=== PATIENT | female | born 1970 | race Caucasian/White ===

== ENCOUNTER 2020-05-17 17:53 | Outpatient (REF) | payer BC, SELFPAY ==
--- NOTE | 2020-05-17 17:55 | MR_ITS ---
EXAMINATION: MR BREAST WITHOUT AND WITH CONTRAST, BILATERAL CLINICAL INFORMATION: 50-year-old for high-risk screening prior history of right breast LCIS. COMPARISON: MRI of 05/15/2019, 04/24/2018 and 05/10/2017. Correlation to mammogram of 11/17/2019. TECHNIQUE: Imaging was performed with a dedicated breast coil. Prior to the administration of contrast, bilateral axial T1 and bilateral axial T2 weighted sequences were obtained. After the uneventful administration of?7 mL of Gadavist, dynamic contrast-enhanced VIBRANT series through the breasts in the axial plane were performed. Subtracted images were performed and reviewed. A delayed sagittal sequence through both breasts was acquired. Additionally, CAD post-processing, including maximum intensity projections, 3-D reconstructions and kinetic analysis, were performed an independent workstation and reviewed by the interpreting radiologist is a portion of this exam. FINDINGS: The patient's fibroglandular tissue which is heterogeneously dense and demonstrates mild background enhancement. LEFT BREAST: Similar to prior studies there are scattered foci of enhancement demonstrating subthreshold kinetics. No suspicious masslike or non-masslike enhancement. No abnormal skin thickening or nipple retraction. No abnormal architectural distortion. Review of the T2 weighted images demonstrates no fibrocystic changes or dilated ducts. Review of kinetic images reveals no additional findings. RIGHT BREAST: Similar to the prior studies, there are scattered foci of enhancement demonstrating subthreshold kinetics. There is a susceptibility artifact in the 12 o'clock position of the breast. No suspicious masslike or non-masslike enhancement. No abnormal skin thickening or nipple retraction. No abnormal architectural distortion. Review of the T2 weighted images demonstrates no fibrocystic changes or dilated ducts. Review of kinetic images reveals no additional findings. There is no suspicious internal mammary chain or axillary adenopathy. Limited views of the chest and abdomen are unremarkable. MR/MR breast BI wo/w con IMPRESSION: No MR specific evidence of malignancy. ASSESSMENT: LEFT BREAST: BI-RADS 2 - Benign RIGHT BREAST: BI-RADS 2 - Benign RECOMMENDATIONS: Routine mammographic imaging as per most recent study and MRI as per high-risk protocol.
== END 2020-05-17 17:54 | disposition home or self-care (01) ==
LOC: HO.MRI 17:53
PROVIDERS: Visit Provider Surgery
DX: D05.00 Lobular carcinoma in situ of unspecified breast (principal)
CPT/HCPCS: 77049; A9585

== ENCOUNTER → 2020-05-18 14:41 | Outpatient (BNVA) | payer BC, SELFPAY | PROVIDERS: PCP Internal Medicine; Referring Provider Internal Medicine; Visit Provider Surgery | DX: Z76.89 Persons encountering health services in other specified circumstances (principal) ==

== ENCOUNTER 2020-09-24 12:58 | Outpatient (REF) | payer BC, SELFPAY ==
--- NOTE | ~2020-09-24 | XR_ITS ---
EXAMINATION: XR LUMBOSACRAL SPINE CLINICAL INFORMATION: Low back pain COMPARISON: None TECHNIQUE: Three views of the lumbosacral spine. FINDINGS: There may be a transitional vertebral body segment or 6 lumbar-type vertebral bodies. For the purposes of this dictation, levels are designated with the transitional vertebral body segment superiorly with the iliac crest and the L4-L5 disc space level. There may be mild 2 mm anterior subluxation of L5 with respect to S1. Bone alignment is otherwise normal. No fracture or dislocation is seen. There is degenerative disc disease at L5-S1. There is lower lumbar spine facet arthritis. XR/XR lumbar spine 2-3V IMPRESSION: Question transitional vertebral body segment. Mild degenerative disc disease at L5-S1 and lower lumbar spine facet arthritis.
== END 2020-09-24 12:59 | disposition home or self-care (01) ==
LOC: HO.HMGCX 12:58
PROVIDERS: PCP Nurse Practitioner Family
DX: M54.5 Low back pain (principal)
CPT/HCPCS: 72100

== ENCOUNTER 2020-10-04 17:10 | Outpatient (REF) | payer BC, SELFPAY ==
--- NOTE | ~2020-10-04 | XR_ITS ---
EXAMINATION: XR FOOT, RIGHT CLINICAL INFORMATION: Right foot pain COMPARISON: None TECHNIQUE: AP, lateral, and oblique views of the right foot. FINDINGS: The bones and soft tissues are unremarkable. No fracture. Alignment is anatomic. Joint spaces are maintained. XR/XR foot RT 2V IMPRESSION: No evidence of acute traumatic injury or cause for the patient's right foot pain.
== END 2020-10-04 17:11 | disposition home or self-care (01) ==
LOC: HO.XRAY 17:10
PROVIDERS: PCP Nurse Practitioner Family; Visit Provider Family Medicine
DX: M79.671 Pain in right foot (principal)
CPT/HCPCS: 73620

== ENCOUNTER → 2020-11-09 15:27 | Outpatient (BNVA) | payer BC, SELFPAY | PROVIDERS: PCP Nurse Practitioner Family; Visit Provider Surgery ==

== ENCOUNTER 2020-12-17 11:56 | Outpatient (REF) | payer BC, SELFPAY ==
--- NOTE | ~2020-12-17 | MM_ITS ---
EXAMINATION: MM SCREENING DIGITAL BREAST TOMOSYNTHESIS, BILATERAL CLINICAL INFORMATION: Screening. Asymptomatic. History right LCIS status post excision 2015. Benign right MR guided biopsy 03/2017. The lifetime risk of breast cancer based on the Tyrer-Cuzick Model is 53%. COMPARISON: Mammography: 11/17/2019, 11/15/2018, 11/30/2017 TECHNIQUE: Digital breast tomosynthesis is performed in both the craniocaudal and mediolateral oblique views along with computer-aided detection (CAD). Synthesized 2D images are generated from the tomosynthesis. FINDINGS: The breasts are heterogeneously dense, which may obscure small masses (ACR BI-RADS breast composition Category c). There are no significant masses, abnormal calcifications, or other abnormalities. Parenchymal pattern is similar to prior studies. No developing density. There is biopsy clip marker again seen 12:30 o'clock right breast. The axilla and skin contours are unremarkable. MM/MM tomosynthesis screening BI IMPRESSION: No mammographic evidence of malignancy. ASSESSMENT: BI-RADS 1: Negative RECOMMENDATION: 1. Routine annual mammography screening. 2. The lifetime risk of breast cancer based on the Tyrer-Cuzick Model is 53%. Additional annual adjunct screening with breast MRI may be of benefit in women with a risk score of 20% or greater. This patient's information was entered into a reminder system with a target due date for their next mammogram.
== END 2020-12-17 11:57 | disposition home or self-care (01) ==
LOC: HO.MAMMO 11:56
PROVIDERS: PCP Nurse Practitioner Family; Visit Provider Surgery
DX: Z12.31 Encounter for screening mammogram for malignant neoplasm of breast (principal)
CPT/HCPCS: 77063; 77067

== ENCOUNTER 2021-01-20 08:12 | Outpatient (REF) | payer BC, SELFPAY ==
--- NOTE | ~2021-01-20 | MM_ITS ---
EXAMINATION: BONE DENSITOMETRY CLINICAL INDICATION: Osteoporosis. COMPARISON: This is the patient's baseline examination. TECHNIQUE: Using a Element Robot DXA System (software version: 13.1) manufactured by [employer], dual-energy x-ray absorptiometry was performed of the lumbar spine and left hip. The images are of good technical quality. Summary results are attached. FINDINGS: AP SPINE L1-L4: BMD 1.174 g/cm2, Z-score 0.3, T-score -0.1, normal. LEFT FEMUR, NECK: BMD 0.837 g/cm2, Z-score -0.7, T-score -1.4, osteopenia. LEFT FEMUR, TOTAL: BMD 0.987 g/cm2, Z-score 0.2, T-score -0.2, normal. IDENTIFIED RISK FACTORS: Menopause, history of fracture (adult). HISTORY OF FRACTURE: Other. MEDICATIONS: Vitamin D, ERT/SERMS. MM/XR DEXA axial skeleton IMPRESSION: 1. DIAGNOSIS: Osteopenia based on the lowest T-score value of -1.4 in the femoral neck applying World Health Organization criteria. 2. 10-YEAR FRACTURE RISK PREDICTION, FRAX: Major osteoporotic fracture (clinical spine, forearm, hip or shoulder) 9.6%. Hip fracture 0.8%. 3. Treatment Recommendations: NOF guidelines recommend consideration for treatment in postmenopausal women and men age 50 and older presenting with the following: -A hip or vertebral (clinical or morphometric) fracture. -T-score less than or equal to -2.5 at the femoral neck or spine after appropriate evaluation to exclude secondary causes. -Low bone mass at the hip or spine and a 10-year fracture probability by FRAX of greater than or equal to 3% for hip fracture or greater than or equal to 20% for major osteoporotic fracture based on the [place] adapted WHO algorithm. 4. Other Recommendations: All treatment decisions require clinical judgment and consideration of individual patient factors, including patient preferences, comorbidities, previous drug use, risk factors not captured in the FRAX model (e.g. frailty, falls, vitamin D deficiency, increased bone turnover, interval significant decline in bone density) and possible under or overestimation of fracture risk by FRAX. Additional medical evaluation for secondary cause of low bone mineral density may be appropriate. FUTURE SCAN RECOMMENDATION: People with diagnosed cases of osteoporosis or at high risk for fracture should have regular bone mineral density tests. For patients eligible for Medicare, routine testing is allowed once every 2 years. The testing frequency can be increased to one year for patients who have rapidly progressing disease, those who are receiving or discontinuing medical therapy to restore bone mass, or have additional risk factors.
== END 2021-01-20 08:13 | disposition home or self-care (01) ==
LOC: HO.MAMMO 08:12
PROVIDERS: PCP Nurse Practitioner Family; Visit Provider Internal Medicine Medical Oncology
DX: Z13.820 Encounter for screening for osteoporosis (principal); D05.12 Intraductal carcinoma in situ of left breast; Z78.0 Asymptomatic menopausal state
CPT/HCPCS: 77080

== ENCOUNTER 2021-05-09 08:06 | Outpatient (REF) | payer BC, SELFPAY ==
--- NOTE | ~2021-05-09 | MR_ITS ---
EXAMINATION: MR BREAST WITHOUT AND WITH CONTRAST, BILATERAL CLINICAL INFORMATION: High-risk screening. Personal history of right breast LCIS post excision 2016. COMPARISON: Portions of previous study 05/17/2020 Mammography (nondiagnostic monitor review): 12/17/2020 TECHNIQUE: A 1.5 T system and a dedicated breast coil. T1-weighted sequences without fat-saturation were obtained prior to the administration of contrast. Fat-saturated T1- and T2-weighted sequences were also acquired. The patient received 7.5 mL of IV gadolinium-based contrast, Gadavist. Multiple sequential dynamic T1-weighted sequences were obtained through both breasts with fat-saturation. Subtracted images were reviewed. CAD postprocessing with 3-D reconstructions, maximum intensity projections and kinetic analysis was performed by the interpreting radiologist at an independent workstation and reviewed as a portion of this exam. FINDINGS: Amount of Remaining Fibroglandular Signal: There is heterogeneous fibroglandular tissue, which may obscure small masses (ACR BI-RADS breast composition category C).* Background Parenchymal Enhancement: Mild. Symmetry of Background Enhancement: Symmetric. RIGHT BREAST: There are no suspicious findings. Masses: There are no suspicious enhancing masses. Non-mass Enhancement: There is no suspicious non-mass enhancement. Focus: There are no suspicious enhancing foci. Non-enhancing Findings: Associated Findings: There is susceptibility artifact from tissue marker placement. The architecture is consistent with previous surgery. Kinetic Curve Assessment: Initial Phase: There are no suspicious areas of color signal. Delayed Phase: There are no areas of washout kinetics. LEFT BREAST: There are no suspicious findings. Masses: There are no suspicious enhancing masses. Non-mass Enhancement: There is no suspicious non-mass enhancement. Focus: There are no suspicious enhancing foci. Non-enhancing Findings: Associated Findings: There are no suspicious associated findings. Kinetic Curve Assessment: Initial Phase: There are no areas of suspicious color signal. Delayed Phase: There are no areas of washout kinetics. The axillary lymph nodes are morphologically normal. No suspicious internal mammary lymph nodes are seen. No suspicious abnormality in the visualized portions of chest or abdomen. MR/MR breast BI wo/w con IMPRESSION: No MR evidence of malignancy. No suspicious interval change. ASSESSMENT: Right Breast: ACR BI-RADS 2: Benign finding. Left Breast: ACR BI-RADS 1: Negative examination. RECOMMENDATIONS: Continue screening.
== END 2021-05-09 08:07 | disposition home or self-care (01) ==
LOC: HO.MRI 08:06
PROVIDERS: PCP Nurse Practitioner Family; Visit Provider Internal Medicine Medical Oncology
DX: D05.01 Lobular carcinoma in situ of right breast (principal); D05.12 Intraductal carcinoma in situ of left breast
CPT/HCPCS: 77049; A9585

== ENCOUNTER → 2021-07-05 10:28 | Outpatient (BNVA) | payer SELFPAY | PROVIDERS: PCP Nurse Practitioner Family; Referring Provider Nurse Practitioner Family; Visit Provider Surgery | DX: Z91.89 Other specified personal risk factors, not elsewhere classified (principal); Z86.000 Personal history of in-situ neoplasm of breast | CPT/HCPCS: 99212 ==

== ENCOUNTER 2021-07-21 14:37 | Emergency (ER) | payer BC, SELFPAY ==
--- NOTE | ~2021-07-21 | XR_ITS ---
EXAMINATION: XR CHEST CLINICAL INFORMATION: Chest pain COMPARISON: February 06, 2019 TECHNIQUE: AP portable view of the chest was obtained. FINDINGS: No significant abnormality is noted involving the heart, lungs, mediastinum, bony thorax or soft tissues. XR/XR chest 1V IMPRESSION: No acute disease.
--- NOTE | 2021-07-21 14:50 | ECG_ITS ---
Test Reason : CHEST PAIN Blood Pressure : / mmHG Vent. Rate : 069 BPM Atrial Rate : 069 BPM P-R Int : 128 ms QRS Dur : 092 ms QT Int : 396 ms P-R-T Axes : 073 049 054 degrees QTc Int : 424 ms Normal sinus rhythm Nonspecific ST abnormality Abnormal ECG No previous ECGs available Referred By: Generic ED Physician Electronically Signed By:NORMA MON
[2021-07-21 15:44] VITALS: BP 134/81; PULSE 67; RESP 16; TEMP 36.4; O2SAT 97; BMI 25.0
[2021-07-21 16:14] LABS: MANUAL DIFF FLAG NO
[2021-07-21 16:20] LABS: Basophils Absolute Auto 0.1 X10*3/uL (0.0-0.2); Basophils Percent Auto 1.2 % (0-2); Eosinophils Absolute Auto 0.1 X10*3/uL (0.0-0.4); Eosinophils Percent Auto 1.6 % (0-4); Hematocrit 41.4 % (37.0-47.0); Hemoglobin 13.9 g/dl (12.0-16.0); Imm Gran Abs Auto 0.01 X10*3/uL (0.00-0.03); Imm Gran Pct Auto 0.2 % (0.0-0.4); Lymphocytes Absolute Auto 1.7 X10*3/uL (1.2-4.9); Lymphocytes Percent Auto 34.3 % (20-40); Mean Corpuscular HGB Conc 33.6 g/dl (31.0-35.0); Mean Corpuscular Hemoglobin 31.3 pg (27.0-33.0); Mean Corpuscular Volume 93.2 fL (80.0-98.0); Monocytes Absolute Auto 0.5 X10*3/uL (0.1-1.2); Monocytes Percent Auto 10.1 % (2-11); Neutrophils Absolute Auto 2.7 x10*3/uL (2.0-8.3); Neutrophils Percent Auto 52.6 % (45-73); Platelet Count 241 X10*3/uL (160-400); Red Blood Count 4.44 X10*6/uL (4.20-5.50); Red Cell Distribution Width 12.9 % (11.0-16.0); White Blood Count 5.1 X10*3/uL (4.8-10.8)
[2021-07-21 16:35] LABS: Anion Gap 13 (12-20); Blood Urea Nitrogen 16 mg/dL (9-16); Calcium 10.5 mg/dL (8.4-10.2); Carbon Dioxide 31 mmol/L (22-29); Chloride 102 mmol/L (96-108); Creatinine Clr Calc Pharmacy 84.2; Estimated Glomerular Filt Rate > 60; Glucose Random 104 mg/dL (60-115); Potassium 5.5 mmol/L (3.3-5.1); Sodium 140 mmol/L (135-145)
[2021-07-21 16:43] LABS: Troponin-I High Sensitivity < 3.5 ng/L (<3.5-17.0)
== END 2021-07-21 21:40 | disposition left against medical advice (07) ==
PROVIDERS: Emergency Provider Emergency Medicine; PCP Nurse Practitioner Family
DX: R07.9 Chest pain, unspecified (principal)
CPT/HCPCS: 36415; 71045; 80048; 84484; 85025; 93005; 99283

== ENCOUNTER 2021-09-13 09:09 | Outpatient (REF) | payer OTHER, SELFPAY ==
[2021-09-13 11:24] LABS: MANUAL DIFF FLAG NO
[2021-09-13 11:42] LABS: Appearance Urine HAZY; Color Urine YELLOW; Glucose Urine UA NEG (NEG); Leukocyte Esterase Urine 2+ (NEG); Nitrite Urine NEG (NEG); PH 5.5 (5.0-8.0); Specific Gravity - Urine >= 1.030 (1.005-1.025); UACC Culture Trigger YES; Urine Blood NEG (NEG); Urine Ketones NEG (NEG); Urine Protein NEG (NEG-TRACE)
[2021-09-13 11:58] LABS: Basophils Absolute Auto 0.1 X10*3/uL (0.0-0.2); Basophils Percent Auto 1.2 % (0-2); Eosinophils Absolute Auto 0.1 X10*3/uL (0.0-0.4); Hematocrit 43.7 % (37.0-47.0); Hemoglobin 14.5 g/dl (12.0-16.0); Imm Gran Abs Auto 0.01 X10*3/uL (0.00-0.03); Imm Gran Pct Auto 0.2 % (0.0-0.4); Lymphocytes Absolute Auto 2.3 X10*3/uL (1.2-4.9); Lymphocytes Percent Auto 47.5 % (20-40); Mean Corpuscular HGB Conc 33.2 g/dl (31.0-35.0); Mean Corpuscular Hemoglobin 31.2 pg (27.0-33.0); Mean Platelet Volume 9.6 fL (9.4-12.3); Monocytes Absolute Auto 0.5 X10*3/uL (0.1-1.2); Monocytes Percent Auto 10.5 % (2-11); Neutrophils Absolute Auto 1.9 x10*3/uL (2.0-8.3); Neutrophils Percent Auto 38.6 % (45-73); Platelet Count 239 X10*3/uL (160-400); Red Blood Count 4.65 X10*6/uL (4.20-5.50); Red Cell Distribution Width 13.2 % (11.0-16.0); White Blood Count 4.9 X10*3/uL (4.8-10.8)
[2021-09-13 11:59] LABS: Alanine Aminotransferase 22 U/L (0-31); Albumin Level 4.8 g/dL (3.5-5.0); Alkaline Phosphatase 77 U/L (39-117); Anion Gap 14 (12-20); Aspartate Amino Transferase 22 U/L (5-31); Bilirubin Total 0.9 mg/dL (0.0-1.0); Blood Urea Nitrogen 16 mg/dL (9-16); Calcium 10.6 mg/dL (8.4-10.2); Carbon Dioxide 26 mmol/L (22-29); Chloride 103 mmol/L (96-108); Cholesterol 226 mg/dL; Estimated Glomerular Filt Rate > 60; Glucose Fasting 93 mg/dL (60-99); HDL Cholesterol 91 mg/dL; LDL Cholesterol Calculated 123 mg/dl; Potassium 4.9 mmol/L (3.3-5.1); Sodium 138 mmol/L (135-145); Total Protein 7.7 g/dL (6.5-8.0); Triglycerides 61 mg/dL
[2021-09-13 12:22] LABS: TSH reflex Free T4 1.87 uIU/mL (0.32-4.0)
[2021-09-13 12:39] LABS: Mucus Urine 1+ /LPF; Squamous Epithelial Cell Urine 2+ /LPF
[2021-09-13 12:40] LABS: RBC Urine 0 /HPF (0); Renal Epithelial Cells Urine 1+ /LPF
== END 2021-09-13 09:10 | disposition home or self-care (01) ==
LOC: HO.HMGCLDS 09:09
PROVIDERS: PCP Nurse Practitioner Family; Visit Provider Nurse Practitioner Family
DX: Z00.00 Encounter for general adult medical examination without abnormal findings (principal)
CPT/HCPCS: 36415; 80053; 80061; 81001; 81003; 84443; 85025; 87086; 87147

== ENCOUNTER 2021-09-16 13:26 | Outpatient (REF) | payer OTHER, SELFPAY ==
[2021-09-16 16:02] LABS: Appearance Urine CLEAR; Color Urine YELLOW; Glucose Urine UA NEG (NEG); Leukocyte Esterase Urine 1+ (NEG); Nitrite Urine NEG (NEG); PH 5.5 (5.0-8.0); Specific Gravity - Urine 1.015 (1.005-1.025); UACC Culture Trigger YES; Urine Blood NEG (NEG); Urine Ketones NEG (NEG); Urine Protein NEG (NEG-TRACE)
[2021-09-16 16:07] LABS: Bacteria Urine TRACE /LPF; RBC Urine 0 /HPF (0); Squamous Epithelial Cell Urine 2+ /LPF
[2021-09-16 17:10] LABS: Vitamin D 25-OH Total 46.4 ng/mL (>30)
[2021-09-19 15:57] LABS: Calcium (PTHI) 9.7 mg/dL (8.6-10.4); PTHI 36 pg/mL (16-77)
[2021-09-22 11:51] LABS: Calcium, Ionized 5.2 mg/dL (4.8-5.6)
== END 2021-09-16 13:27 | disposition home or self-care (01) ==
LOC: HO.HMGCLDS 13:26
PROVIDERS: PCP Nurse Practitioner Family; Visit Provider Nurse Practitioner Family
DX: E83.52 Hypercalcemia (principal)
CPT/HCPCS: 36415; 81001; 81003; 82306; 82330; 83970; 87086

== ENCOUNTER → 2021-11-01 08:04 | Outpatient (BNVA) | payer OTHER, SELFPAY | PROVIDERS: PCP Nurse Practitioner Family; Visit Provider Physician Assistant | DX: Z01.818 Encounter for other preprocedural examination (principal); Z12.11 Encounter for screening for malignant neoplasm of colon ==

== ENCOUNTER 2022-01-06 14:54 | Outpatient (REF) | payer OTHER, SELFPAY ==
--- NOTE | ~2022-01-06 | MM_ITS ---
EXAMINATION: MM SCREENING DIGITAL BREAST TOMOSYNTHESIS, BILATERAL CLINICAL INFORMATION: History right LCIS status post excision 2016. Screening. Asymptomatic. The lifetime risk of breast cancer based on the Tyrer-Cuzick Model is 52%. COMPARISON: Mammography: 11/17/2020, 11/17/2019, 11/15/2018; MR breasts 05/09/2021. TECHNIQUE: Digital breast tomosynthesis is performed in both the craniocaudal and mediolateral oblique views along with computer-aided detection (CAD). Synthesized 2D images are generated from the tomosynthesis. FINDINGS: There are scattered areas of fibroglandular density (ACR BI-RADS breast composition Category b). There are no significant masses, abnormal calcifications, or other abnormalities. There is biopsy clip marker central 12:30 o'clock right breast. No developing density or architectural abnormality. The axilla and skin contours are unremarkable. MM/MM tomosynthesis screening BI IMPRESSION: No mammographic evidence of malignancy. ASSESSMENT: BI-RADS 1: Negative RECOMMENDATION: 1. Routine annual mammography screening. 2. The lifetime risk of breast cancer based on the Tyrer-Cuzick Model is 52%. Additional annual adjunct screening with breast MRI may be of benefit in women with a risk score of 20% or greater. This patient's information was entered into a reminder system with a target due date for their next mammogram.
== END 2022-01-06 14:55 | disposition home or self-care (01) ==
LOC: HO.MAMMO 14:54
PROVIDERS: Visit Provider Surgery
DX: Z12.31 Encounter for screening mammogram for malignant neoplasm of breast (principal)
CPT/HCPCS: 77063; 77067

== ENCOUNTER 2022-05-30 16:25 | Outpatient (REF) | payer OTHER, SELFPAY ==
--- NOTE | ~2022-05-30 | MR_ITS ---
EXAMINATION: MR BREAST WITHOUT AND WITH CONTRAST, BILATERAL CLINICAL INFORMATION: High-risk screening. History of lobular neoplasia. COMPARISON: MRI 05/09/2021 and selected images from priors. Most recent mammography 01/06/2022. TECHNIQUE: Imaging was performed with a dedicated breast coil. Prior to the administration of contrast, bilateral axial T1 and bilateral axial T2 weighted sequences were obtained. After the uneventful administration of?7.5 mL of Gadavist, dynamic contrast-enhanced VIBRANT series through the breasts in the axial plane were performed. Subtracted images were performed and reviewed. A delayed sagittal sequence through both breasts was acquired. Additionally, CAD post-processing, including maximum intensity projections, 3-D reconstructions and kinetic analysis, were performed an independent workstation and reviewed by the interpreting radiologist is a portion of this exam. FINDINGS: The breasts are comprised of heterogeneous, dense fibroglandular parenchyma. The tissue undergoes mild background enhancement. LEFT BREAST: No suspicious mass or dominant nonmass enhancement. No architectural distortion. Scattered tiny foci of nonmass enhancement predominating in the lower outer quadrant are unchanged compared with priors RIGHT BREAST: No suspicious mass or dominant nonmass enhancement. Clip susceptibility artifact in the superior right breast from prior benign biopsy without associated enhancement. Subtle architectural distortion and susceptibility artifact in the medial right breast from remote excision for lobular neoplasia (LCIS) without associated enhancement. No appreciable change when compared with priors. Small scattered foci of nonmass enhancement predominating inferiorly are stable. There is no suspicious internal mammary chain or axillary adenopathy. Limited views of the chest and abdomen are unremarkable. MR/MR breast BI wo/w con IMPRESSION: No MR specific evidence of malignancy. Postsurgical changes on the right. ASSESSMENT: LEFT BREAST: BI-RADS 2, benign findings. RIGHT BREAST: BI-RADS 2, benign findings. RECOMMENDATIONS: Yearly bilateral breast MR per published guidelines in high-risk patients.
== END 2022-05-30 16:26 | disposition home or self-care (01) ==
LOC: HO.MRI 16:25
PROVIDERS: Visit Provider Surgery
DX: D05.00 Lobular carcinoma in situ of unspecified breast (principal); Z91.89 Other specified personal risk factors, not elsewhere classified
CPT/HCPCS: 77049

== ENCOUNTER → 2022-08-10 14:40 | Outpatient (BNVA) | payer OTHER, SELFPAY | PROVIDERS: PCP Nurse Practitioner Family; Referring Provider Nurse Practitioner Family; Visit Provider Surgery | DX: Z13.89 Encounter for screening for other disorder (principal) ==

== ENCOUNTER 2022-10-26 10:29 | Day surgery (SDC) | payer OTHER, SELFPAY ==
[2022-10-20 15:00] VITALS: BMI 25.7
--- NOTE | 2022-10-25 10:27 | P.CONAN_ITS ---
Documented by User: Alfreda Garcia NP 10/25/22 10:27 HPI - Anesthesia Eval Consult details Narrative: 52yo F for Colonoscopy PMFSH Active Problems Active Problems: All Active Problems (Updated 10/20/22 @ 14:56 by Chrissy Stovall RN) Lobular carcinoma in situ (LCIS) of breast (Acute) Foot pain, right (Acute) Lumbar back pain (Acute) Tendonitis (Acute) At high risk for breast cancer (Acute) Screening for colon cancer (Acute) Physical exam (Acute) Serum calcium elevated (Acute) Encounter for screening colonoscopy (Acute) Family History Family History Father Colon cancer Cancer of pancreas Mother Bladder cancer HTN (hypertension) High cholesterol H/O aortic valve replacement Maternal Grandmother Cancer of pancreas Paternal Grandmother No problems noted. Paternal Aunt Breast cancer Surgical History Surgical History (Updated 10/26/22 @ 11:12 by Marion Noriega RN) H/O colonoscopy History of appendectomy History of right breast biopsy History of tonsillectomy Social History Social History Housing: House Alcohol intake: never Patient Tobacco Use Status: Never used Tobacco e-Cigarette/Vaping Use: Never Used Second Hand Smoke Exposure: No Use of substances other than those prescribed or required for medical reasons: No Are you DNR?: No Advance Directives: No Advance Directives Information Provided: Yes Recently lost weight without trying: No Nutrition Risks: No Nutritional Risk service: No Current occupational status: employed 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 Cognitive needs: No Hearing needs: No Vision needs: No Meds Allergies Allergy/AdvReac Type Severity Reaction Status Date / Time epinephrine [EPINEPHRINE] Allergy Intermediate HEART Verified 02/07/22 15:52 RACES, palpitations, tachycardia Sulfa (Sulfonamide Allergy Intermediate RASH Verified 10/20/22 14:56 Antibiotics) [SULFA (SULFONAMIDE ANTIBIOTICS)] Home Medications Medication Instructions Recorded Confirmed Last Taken Type cholecalciferol (vitamin D3) 25 25 mcg PO DAILY 05/18/20 10/20/22 Unknown History mcg (1,000 unit) capsule Exam Exam Date and Time: October 25, 2022 1027 Height,Weight and Vital Signs: Height 5 ft 6 in Weight 72.121 kg Assessment and Plan Assessment Anesthesia Assessment: Chart Reviewed Documented by User: Taran Camarena MD 10/26/22 11:45 PMFSH Family History Family History Father Colon cancer Cancer of pancreas Mother Bladder cancer HTN (hypertension) High cholesterol H/O aortic valve replacement Maternal Grandmother Cancer of pancreas Paternal Grandmother No problems noted. Paternal Aunt Breast cancer Surgical History Surgical History (Updated 10/26/22 @ 11:12 by Marion Noriega RN) H/O colonoscopy History of appendectomy History of right breast biopsy History of tonsillectomy Social History Social History Housing: House Alcohol intake: never Patient Tobacco Use Status: Never used Tobacco e-Cigarette/Vaping Use: Never Used Second Hand Smoke Exposure: No Use of substances other than those prescribed or required for medical reasons: No Are you DNR?: No Advance Directives: No Advance Directives Information Provided: Yes Recently lost weight without trying: No Nutrition Risks: No Nutritional Risk service: No Current occupational status: employed 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: No Hearing needs: No Vision needs: No Meds Allergies Allergy/AdvReac Type Severity Reaction Status Date / Time epinephrine [EPINEPHRINE] Allergy Intermediate HEART Verified 02/07/22 15:52 RACES, palpitations, tachycardia Sulfa (Sulfonamide Allergy Intermediate RASH Verified 10/20/22 14:56 Antibiotics) [SULFA (SULFONAMIDE ANTIBIOTICS)] Home Medications Medication Instructions Recorded Confirmed Last Taken Type cholecalciferol (vitamin D3) 25 25 mcg PO DAILY 05/18/20 10/20/22 Unknown History mcg (1,000 unit) capsule Exam Airway Mallampati Class: II TM Dist: <=3cm Neck ROM: Full Heart: rrr Lungs: cta Assessment and Plan Assessment Anesthesia Assessment: Anesthesia Plan Discussed Anesthetic Plan Anesthetic Plan: MAC: and Agree w/ Assess. and Plan Disposition: Standard PACU
[2022-10-26 11:14] VITALS: BMI 24.0
[2022-10-26 11:19] VITALS: BP 118/66; PULSE 72; RESP 16; TEMP 36.9; O2SAT 99
[2022-10-26] MEDS: Lactated Ringers 1,000 ML 100 ML IVCONT (11:35)
--- NOTE | 2022-10-26 11:36 | MHC.SHP ---
Pre-Procedural Eval Section A Date of Service: 10/26/22 Section B Chief Complaint: Screening, fam hx of CRC Details of Present Illness: Surgical History History of appendectomy History of right breast biopsy History of tonsillectomy Relevant Family History (Specify if Yes): Yes Present Medications: see Short Stay Collaborative assessment Allergies: Allergies Allergy/AdvReac Type Severity Reaction Status Date / Time epinephrine [EPINEPHRINE] Allergy Intermediate HEART Verified 02/07/22 15:52 RACES, palpitations, tachycardia Sulfa (Sulfonamide Allergy Intermediate RASH Verified 10/20/22 14:56 Antibiotics) [SULFA (SULFONAMIDE ANTIBIOTICS)] Review of Systems Review of Systems Comment: Ten point ROS negative Exam Exam Comment: Gen appear: No acute distress HEENT: no icterus Chest: No overt resp distress Abd: soft, nontender, nondistended Psych: Stable affect, answering questions appropriately Neuro: A/Ox3 noted to move all extremities spontaneously Ext: no peripheral edema Plan Diagnosis/Plan: Unchanged I have reviewed the history and physical and performed a pertinent physical examination on my patient. No changes have occurred unless specified. Time Spent With Patient Time: Total time managing care of this patient today ____ minutes.
--- NOTE | 2022-10-26 11:43 | P.OP_ITS ---
Operative Note Operative Note Date of Service: 10/26/22 Narrative: Procedure: Colonoscopy Indication: Screening, Family history of colon cancer Endoscopist: Janelle Adams MD Anesthesia Provider: Dr Mason Byrd Anesthesia type: MAC Instrument: Olympus [id number] Consent: Indication, risks vs benefits, and alternatives were discussed with the patient who gave written informed consent to proceed. EKG, pulse, pulse oximetry and blood pressure were monitored throughout the procedure. Please see anesthesia flowsheet. Procedure: The patient was brought to the procedure room and placed in the left lateral decubitus position. IV medications were administered by the anesthesia provider in attendance. A digital rectal exam was performed which was normal. A distal attachment cap was affixed to the tip of the scope and the colonoscope was then inserted through the anus and advanced through the colon to the cecum at 75 cm,and terminal ileum. Mucosa was carefully examined under high definition white light as the instrument was slowly withdrawn in a retrograde panoramic fashion. Retroflexion was performed in rectum. The procedure was not difficult. There were no immediate obvious complications. The quality of the prep was BBPS: 3+3+2 = adequate Withdrawal time 9 minutes. Limitations: No limitations. Findings: Mucosa: Normal to cecum and terminal ileum. Protruding lesions: * 1 sessile polyp of size 2 mm in sigmoid colon. Cold forceps polypectomy was performed. The polyp was completely removed and retrieved. * Medium external hemorrhoids without stigmata of recent bleeding. Impression: 1. Normal colon and terminal ileum mucosa 2. Total of 1 polyp removed from sigmoid colon. 3. External hemorrhoids Recommendations: - Follow path results. - Repeat colonoscopy in 5 years due to family history of CRC.
[2022-10-26 12:19] VITALS: BP 106/63; PULSE 82; RESP 15; TEMP 36.1; O2SAT 98
[2022-10-26 12:39] VITALS: BP 112/64; PULSE 70; RESP 18; TEMP 36.1; O2SAT 97
== END 2022-10-26 13:00 | disposition home or self-care (01) ==
PROVIDERS: PCP Nurse Practitioner Family; Visit Provider Internal Medicine
PROC: 0DJD8ZZ Inspection of Lower Intestinal Tract, Via Natural or Artificial Opening Endoscopic (ICD-10-PCS; CPT 45378; principal; 2022-10-26 11:40)
DX: Z12.11 Encounter for screening for malignant neoplasm of colon (principal); Z80.0 Family history of malignant neoplasm of digestive organs; K63.5 Polyp of colon; K64.4 Residual hemorrhoidal skin tags; Z85.3 Personal history of malignant neoplasm of breast; Z79.899 Other long term (current) drug therapy; Z88.2 Allergy status to sulfonamides; Z88.8 Allergy status to other drugs, medicaments and biological substances
CPT/HCPCS: 45380; 88305

== ENCOUNTER → 2022-11-30 14:29 | Outpatient (BNVA) | payer OTHER, SELFPAY | PROVIDERS: PCP Nurse Practitioner Family; Visit Provider Physician Assistant ==

== ENCOUNTER 2023-02-01 15:52 | Outpatient (REF) | payer OTHER, SELFPAY ==
--- NOTE | ~2023-02-01 | MM_ITS ---
EXAMINATION: MM SCREENING DIGITAL BREAST TOMOSYNTHESIS, BILATERAL CLINICAL INFORMATION: Screening. Asymptomatic. History right LCIS status post excision 2015. Benign right MR guided biopsy 03/2017. COMPARISON: MR dated 05/30/2022. Mammography: 01/06/2022, 05/09/2021, 12/17/2020, 05/27/2020, and dating back to 2018. TECHNIQUE: Digital breast tomosynthesis is performed in both the craniocaudal and mediolateral oblique views along with computer-aided detection (CAD). Synthesized 2D images are generated from the tomosynthesis. FINDINGS: The breasts are heterogeneously dense, which may obscure small masses (ACR BI-RADS breast composition Category c). Biopsy clip present in the upper slightly medial right breast, posterior one third. There are no suspicious masses, suspicious grouped calcifications, or areas of architectural distortion. The parenchymal pattern is stable from prior exams. There are no skin changes. MM/MM tomosynthesis screening BI IMPRESSION: No mammographic evidence of malignancy. ASSESSMENT: BI-RADS BI-RADS 1 - Negative RECOMMENDATION: Routine annual mammography screening. 1 year F/U This examination should not preclude the clinical evaluation of a suspicious palpable abnormality. This patient's information was entered into a reminder system with a target due date for their next mammogram.
== END 2023-02-01 15:53 | disposition home or self-care (01) ==
LOC: HO.MAMMO 15:52
PROVIDERS: PCP Nurse Practitioner Family; Visit Provider Nurse Practitioner Family
DX: Z12.31 Encounter for screening mammogram for malignant neoplasm of breast (principal)
CPT/HCPCS: 77063; 77067

== ENCOUNTER → 2023-02-01 16:00 | Outpatient (BNV) | payer OTHER, SELFPAY | PROVIDERS: PCP Nurse Practitioner Family; Visit Provider Radiology Diagnostic Radiology | DX: Z12.31 Encounter for screening mammogram for malignant neoplasm of breast (principal) | CPT/HCPCS: 77063; 77067 ==

== ENCOUNTER 2023-02-08 15:45 | Outpatient (AMB) | payer OTHER, SELFPAY ==
[2023-02-08 15:46] VITALS: BP 123/65; BMI 23.8
--- NOTE | 2023-02-08 15:46 | MHC.OFFVIS ---
Intake Vital Signs 02/08/23 15:46 Height 5 ft 7 in Weight 152 lb 4 oz BMI 23.8 BP 123/65 Blood Pressure Location Lt brachial Position Sitting Intake Visit Reasons: Breast exam, 6 month follow up Intake Note: Patient is seen in office for 6 month follow up visit, breast exam. Patient c/o: denies any concerns at the time of visit Director Oncology Required: No Accompanied by: Self / Same As Patient Allergies epinephrine [EPINEPHRINE] Allergy (Intermediate, Verified 02/08/23 15:52) HEART RACES, palpitations, tachycardia Sulfa (Sulfonamide Antibiotics) [SULFA (SULFONAMIDE ANTIBIOTICS)] Allergy (Intermediate, Verified 02/08/23 15:52) RASH Medication List - Last Reconciled 02/09/23 by Marc Odell MD cholecalciferol (vitamin D3) 25 mcg PO DAILY doxycycline hyclate 100 mg PO DAILY HPI HPI Comments History of Present Illness Details 52-year-old female patient, former patient of Dr. Ceja returning today for high risk breast cancer examination. She has a strong family history of colon cancer in a genetic testing on 08/16/2011 which revealed no clinically significant mutations or variants of unknown significance. Updated testing on 11/13/2018 revealed no deleterious mutations and no mutations of unknown significance. She previously underwent a right breast excision of a papilloma on 11/19/2014. Final pathology revealed lobular carcinoma in-situ arising from a complex sclerosing lesion. She was placed on a high risk screening protocol including yearly mammogram and MRIs. She was evaluated by Dr. Palomo and placed on tamoxifen but was later discontinued due to hot flashes and memory loss. She restarted in July 2017, 3 times weekly and completed the meds on 12/27/2019. She underwent MR guided biopsy on 05/10/2017 for a masslike enhancement in the right breast which revealed fibroadenomatoid changes. Subsequent MRI on 05/09/2021 revealed post treatment changes of the right breast and a normal left breast BI-RADS 2 right/BI-RADS 1 left. Her most recent mammogram of 02/01/2023 revealed no mammographic evidence of malignancy (BI-RADS 1). Repeat mammography in 1 year was recommended. Breast MRI on 05/30/2022 revealed no MR specific evidence of malignancy (BI-RADS 2 bilaterally). Currently she feels well and denies any ongoing breast symptoms. [facility] Surgical History H/O colonoscopy History of tonsillectomy History of right breast biopsy History of appendectomy Family History Father Colon cancer Cancer of pancreas Mother Bladder cancer HTN (hypertension) High cholesterol H/O aortic valve replacement Maternal Grandmother Cancer of pancreas Paternal Grandmother No problems noted. 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 Cognitive needs: No Hearing needs: No Vision needs: No Review of Systems Const All systems reviewed & are unremarkable except as noted in HPI and below Denies nipple discharge Skin/Breast Denies breast swelling, Denies breast skin changes, Denies breast pain, Denies breast mass, Denies change in breast shape, Denies nipple discharge and Denies rash [place]/Lymph Denies lymphadenopathy Physical Exam Vital Signs: Last Vital Signs BP 123/65 02/08/23 15:46 BMI result Body Mass Index 23.8 Const General: cooperative, comfortable, no acute distress, alert and awake Nutritional Appearance: average body habitus Orientation/consciousness: patient oriented x3 Limitations: no limitations Neck Neck: Yes normal visual inspection and Yes no lymphadenopathy Chest Other: Left breast: No skin change, no nipple retraction, no nipple discharge, no palpable mass, no enlarged lymph nodes. Right breast: No skin change, no nipple retraction, no nipple discharge, no palpable mass, no enlarged lymph nodes . Well-healed transverse scar at the 9 o'clock position of the right breast. Mild fibrocystic changes bilaterally. Resp Effort & Inspection: normal respiratory effort Skin General skin exam: no rashes or lesions noted and dry skin Neuro General: patient oriented x3 Extrem General: Yes no clubbing, cyanosis or edema Assessment & Plan Assessment & Plan (1) Lobular carcinoma in situ (LCIS) of breast: Comment: Right Code(s): D05.00 - Lobular carcinoma in situ of unspecified breast Qualifiers: Laterality: right Qualified Code(s): D05.01 - Lobular carcinoma in situ of right breast (2) At high risk for breast cancer: Code(s): Z91.89 - Other specified personal risk factors, not elsewhere classified Plan 52-year-old female with history of lobular carcinoma in situ of the right breast status post lumpectomy performed on 11/19/2014. Patient is being followed on the high risk breast cancer screening protocol. Her latest mammogram of 01/31/2023 revealed no mammographic evidence of malignancy (BI-RADS 1). Her Tyrer-Cuzick remaining lifetime risk of breast cancer was calculated at 52%. Breast MRI of 05/30/2022 revealed no MR specific evidence of malignancy (BI-RADS 2 bilaterally). Examined today revealed no suspicious findings in either breast. She will continue with her annual mammogram and breast MRI and follow-up in 6 months for routine examination. She is welcome to call sooner for any new concerns. Coding Level of Care Code Est Pt Level 3 (76804) Diagnoses Lobular carcinoma in situ (LCIS) of right breast D05.01 Laterality: right At high risk for breast cancer Z91.89
== END 2023-02-08 16:12 | disposition home or self-care (01) ==
PROVIDERS: PCP Nurse Practitioner Family; Visit Provider Surgery
DX: D05.01 Lobular carcinoma in situ of right breast (principal); Z91.89 Other specified personal risk factors, not elsewhere classified
CPT/HCPCS: 99213

== ENCOUNTER → 2023-02-08 15:45 | Outpatient (BNVA) | payer OTHER, SELFPAY | PROVIDERS: PCP Nurse Practitioner Family; Visit Provider Surgery ==

== ENCOUNTER 2023-05-15 10:25 | Outpatient (AMB) | payer OTHER, SELFPAY ==
--- NOTE | 2023-05-15 10:30 | A.OFFPC_ITS ---
Vital Signs 05/15/23 10:32 Weight 152 lb BP 138/86 Blood Pressure Location Rt brachial Position Sitting Pulse 72 Pulse Source Pulse Oximeter Pulse Oximetry (%) 99 Oxygen Delivery Method Room Air Intake Visit Reasons: Followup cough Intake Note: Patient is here today to follow up on cough and states it has gotten better. Allergies epinephrine [EPINEPHRINE] Allergy (Intermediate, Verified 05/15/23 10:32) HEART RACES, palpitations, tachycardia Sulfa (Sulfonamide Antibiotics) [SULFA (SULFONAMIDE ANTIBIOTICS)] Allergy (Intermediate, Verified 05/15/23 10:32) RASH Tobacco use date assessed: 05/15/23 Dental Screening Dental Screen Date: 05/15/23 Did you have a dental visit in the last 12 months?: Yes Did you have a dental problem in the last 6 months where you did not have access to dental care?: No Was dental information given to patient?: Patient has dentist HPI Followup cough HPI Details Pt c/o cough. She reports having a cold recently and reports ongoing cough x4 weeks. Explained to pt that cough will last longer than her previous symptoms. Pt reports being bit by a tick around May 01. She states that the tick was not engorged, easily removed well before 24hrs. Pt reports noticing a swollen lymph node in her neck. Will order US. Denies fever, chills, and dizziness. [facility] Surgical History H/O colonoscopy History of tonsillectomy History of right breast biopsy History of appendectomy Family History Father Colon cancer Cancer of pancreas Mother Bladder cancer HTN (hypertension) High cholesterol H/O aortic valve replacement Maternal Grandmother Cancer of pancreas Paternal Grandmother No problems noted. 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 Faheem Crane, Callie Araujo, Jourdan Greene and colleagues, with an educational lizet from [employer]. Physical exam (Primary Care) Vital Signs: Last Vital Signs Pulse 72 05/15/23 10:32 BP 138/86 05/15/23 10:32 Pulse Ox 99 05/15/23 10:32 Oxygen Delivery Method Room Air 05/15/23 10:32 Tobacco/Smoking Status: Tobacco use Status Tobacco use date assessed 05/15/23 05/15/23 10:34 Patient Tobacco Use Status Never used Tobacco 05/15/23 10:31 e-Cigarette/Vaping Use Never Used 05/15/23 10:31 Thrive Assessment: Date of Thrive Assessment Date Thrive assessed 09/13/21 05/15/23 10:31 Const General: cooperative, healthy appearing, comfortable and no acute distress HENMT Other: anterior right cervical nodes palpable, moveable, slightly tender with touch. Ears: TM's normal bilaterally Throat: Yes posterior oropharynx normal Resp Effort & Inspection: normal respiratory effort Auscultation: clear to auscultation bilaterally Cardio Rate: regular rate Rhythm: regular rhythm Heart sounds: S1 normal heart sound present and S2 normal heart sound present Psych Appearance: grossly normal Mental Status: mental status grossly normal Speech and movement: Normal speech and movement present Affect: normal affect Attitude: cooperative Thought process: Normal thought process present Thought content: Normal thought content present Insight: Good insight present (Psych) Judgement: Good judgement present (Psych) Assessment and Plan Assessment & Plan (1) Cervical adenopathy: Code(s): R59.0 - Localized enlarged lymph nodes (2) Cough: Code(s): R05.9 - Cough, unspecified Plan The patient agreed to the use of a medical doctor md for this encounter. Scribed fo RIGO Juarez by Emily Lr medical doctor md, on 05/15/2023 at 10:45 EST. Orders: Orders Complete Blood Count Auto Diff Today Z00.00 - Encounter for general adult medical examination without abnormal findings Comprehensive [place]. Panel Fast Today Z00.00 - Encounter for general adult medical examination without abnormal findings TSH reflex Free T4 Today Z00.00 - Encounter for general adult medical examination without abnormal findings US soft tiss head and/or neck Today R59.0 - Localized enlarged lymph nodes UA CC w/rflx Micro + Cult Today Z00.00 - Encounter for general adult medical examination without abnormal findings Lipid Panel Today Z00.00 - Encounter for general adult medical examination without abnormal findings Coding Level of Care Code Est Pt Level 3 (86546) Diagnoses Cervical adenopathy R59.0 Cough R05.9
[2023-05-15 10:32] VITALS: BP 138/86; PULSE 72; O2SAT 99
== END 2023-05-15 11:07 | disposition home or self-care (01) ==
PROVIDERS: PCP Nurse Practitioner Family; Visit Provider Nurse Practitioner Family
DX: R59.0 Localized enlarged lymph nodes (principal); R05.9 Cough, unspecified
CPT/HCPCS: 99213

== ENCOUNTER 2023-06-28 06:44 | Outpatient (REF) | payer OTHER, SELFPAY ==
[2023-06-28 07:00] LABS: MANUAL DIFF FLAG NO
[2023-06-28 07:48] LABS: Basophils Percent Auto 0.7 % (0-2); Eosinophils Absolute Auto 0.1 X10*3/uL (0.0-0.4); Eosinophils Percent Auto 1.5 % (0-4); Hematocrit 39.4 % (37.0-47.0); Hemoglobin 13.4 g/dl (12.0-16.0); Imm Gran Abs Auto 0.01 X10*3/uL (0.00-0.03); Imm Gran Pct Auto 0.2 % (0.0-0.4); Lymphocytes Absolute Auto 2.5 X10*3/uL (1.2-4.9); Mean Corpuscular Hemoglobin 31.6 pg (27.0-33.0); Mean Corpuscular Volume 92.9 fL (80.0-98.0); Mean Platelet Volume 8.9 fL (9.4-12.3); Monocytes Absolute Auto 0.5 X10*3/uL (0.1-1.2); Monocytes Percent Auto 10.9 % (2-11); Neutrophils Absolute Auto 1.5 x10*3/uL (2.0-8.3); Neutrophils Percent Auto 31.7 % (45-73); Platelet Count 185 X10*3/uL (160-400); Red Blood Count 4.24 X10*6/uL (4.20-5.50); Red Cell Distribution Width 13.1 % (11.0-16.0); White Blood Count 4.6 X10*3/uL (4.8-10.8)
[2023-06-28 08:29] LABS: Alanine Aminotransferase 13 U/L (0-31); Albumin Level 4.3 g/dL (3.5-5.0); Alkaline Phosphatase 53 U/L (39-117); Anion Gap 11 (12-20); Aspartate Amino Transferase 14 U/L (5-31); Bilirubin Total 0.5 mg/dL (0.0-1.0); Blood Urea Nitrogen 11 mg/dL (9-16); Calcium 9.8 mg/dL (8.4-10.2); Carbon Dioxide 30 mmol/L (22-29); Chloride 105 mmol/L (96-108); Estimated Glomerular Filt Rate > 60; Glucose Random 88 mg/dL (60-115); Potassium 4.5 mmol/L (3.3-5.1); Sodium 141 mmol/L (135-145); Total Protein 6.9 g/dL (6.5-8.0)
[2023-06-28 08:31] LABS: Alanine Aminotransferase 13 U/L (0-31); Albumin Level 4.3 g/dL (3.5-5.0); Alkaline Phosphatase 52 U/L (39-117); Anion Gap 10 (12-20); Aspartate Amino Transferase 15 U/L (5-31); Bilirubin Total 0.5 mg/dL (0.0-1.0); Blood Urea Nitrogen 12 mg/dL (9-16); Calcium 9.6 mg/dL (8.4-10.2); Carbon Dioxide 29 mmol/L (22-29); Chloride 105 mmol/L (96-108); Cholesterol 186 mg/dL (<200); Estimated Glomerular Filt Rate > 60; Glucose Fasting 87 mg/dL (60-99); HDL Cholesterol 69 mg/dL (>40); LDL Cholesterol Calculated 103 mg/dL (<100); Potassium 4.2 mmol/L (3.3-5.1); Sodium 140 mmol/L (135-145); Total Protein 6.8 g/dL (6.5-8.0); Triglycerides 74 mg/dL (<150)
[2023-06-28 08:34] LABS: TSH reflex Free T4 2.21 uIU/mL (0.32-4.0); Vitamin D 25-OH Total 48.5 ng/mL (>30)
[2023-06-28 11:27] LABS: Appearance Urine Clear; Color Urine Yellow; Glucose Urine UA Negative (Negative); Leukocyte Esterase Urine Trace (Negative); Nitrite Urine Negative (Negative); PH 6.5 (5.0-9.0); UMIC TRIGGER UACC YES; Urine Blood Negative (Negative); Urine Ketones Negative (Negative); Urine Protein Negative (Neg-Trace)
[2023-06-28 11:33] LABS: Bacteria Urine None Seen (None Seen); Hyaline Casts Urine 0-2 /LPF (0-2); RBC Urine 0-2 /HPF (0-2); Squamous Epithelial Cell Urine 0-2 /HPF (0-2); WBC Urine 0-5 /HPF (0-5)
== END 2023-06-28 06:45 | disposition home or self-care (01) ==
LOC: HO.LAB 06:44
PROVIDERS: Absent Provider Internal Medicine Medical Oncology; PCP Nurse Practitioner Family; Visit Provider Nurse Practitioner Family
DX: Z00.00 Encounter for general adult medical examination without abnormal findings (principal); D05.01 Lobular carcinoma in situ of right breast; E66.3 Overweight; E55.9 Vitamin D deficiency, unspecified
CPT/HCPCS: 36415; 80053; 80061; 81001; 82306; 84443; 85025

== ENCOUNTER 2023-08-16 15:45 | Outpatient (AMB) | payer OTHER, SELFPAY ==
--- NOTE | 2023-08-16 15:47 | MHC.OFFVIS ---
Intake Vital Signs 08/16/23 15:52 Height 5 ft 7 in Weight 153 lb 8 oz BMI 24.0 BP 127/78 Blood Pressure Location Lt brachial Position Sitting Pulse 77 Intake Visit Reasons: Breast exam, 6 month follow up Intake Note: Patient is seen in office for 6 month follow up visit, breast exam. Pt c/o: denies any concerns or changes at the time of visit B MRI:05/30/22 mm:02/01/23 Giving Officer Required: No Accompanied by: Self / Same As Patient Allergies epinephrine [EPINEPHRINE] Allergy (Intermediate, Verified 08/16/23 15:53) HEART RACES, palpitations, tachycardia Sulfa (Sulfonamide Antibiotics) [SULFA (SULFONAMIDE ANTIBIOTICS)] Allergy (Intermediate, Verified 08/16/23 15:53) RASH Medication List - Last Reconciled 08/17/23 by Marc Odell MD cholecalciferol (vitamin D3) 25 mcg PO DAILY doxycycline hyclate 100 mg PO BID 10 days HPI HPI Comments History of Present Illness Details 53-year-old female patient, former patient of Dr. Ceja returning today for high risk breast cancer examination. She has a strong family history of colon cancer in a genetic testing on 08/16/2011 which revealed no clinically significant mutations or variants of unknown significance. Updated testing on 11/13/2018 revealed no deleterious mutations and no mutations of unknown significance. She previously underwent a right breast excision of a papilloma on 11/19/2014. Final pathology revealed lobular carcinoma in-situ arising from a complex sclerosing lesion. She was placed on a high risk screening protocol including yearly mammogram and MRIs. She was evaluated by Dr. Palomo and placed on tamoxifen but was later discontinued due to hot flashes and memory loss. She restarted in July 2017, 3 times weekly and completed the meds on 12/27/2019. She underwent MR guided biopsy on 05/10/2017 for a masslike enhancement in the right breast which revealed fibroadenomatoid changes. Her most recent mammogram of 02/01/2023 revealed no mammographic evidence of malignancy (BI-RADS 1). Repeat mammography in 1 year was recommended. Breast MRI performed last week at [facility] revealed no MR specific evidence of malignancy in either breast. Routine follow-up in 1 year is recommended (BI-RADS 2). Currently she feels well and denies any ongoing breast symptoms. [facility] Surgical History H/O colonoscopy History of tonsillectomy History of right breast biopsy History of appendectomy Family History Father Colon cancer Cancer of pancreas Mother Bladder cancer HTN (hypertension) High cholesterol H/O aortic valve replacement Maternal Grandmother Cancer of pancreas Paternal Grandmother No problems noted. Paternal Aunt Breast cancer Social History Housing: House Alcohol intake: never Patient Tobacco Use Status: Never used Tobacco e-Cigarette/Vaping Use: Never Used Second Hand Smoke Exposure: No service: No Current occupational status: employed Current occupation: [employer] Cognitive needs: No Hearing needs: No Vision needs: No Review of Systems Const All systems reviewed & are unremarkable except as noted in HPI and below Denies nipple discharge Skin/Breast Denies breast swelling, Denies breast skin changes, Denies breast pain, Denies breast mass, Denies change in breast shape, Denies nipple discharge and Denies rash [place]/Lymph Denies lymphadenopathy Physical Exam Vital Signs: Last Vital Signs Pulse 77 08/16/23 15:52 BP 127/78 08/16/23 15:52 BMI result Body Mass Index 24.0 Const General: cooperative, comfortable, no acute distress, alert and awake Nutritional Appearance: average body habitus Orientation/consciousness: patient oriented x3 Limitations: no limitations Neck Neck: Yes normal visual inspection and Yes no lymphadenopathy Chest Other: Left breast: No skin change, no nipple retraction, no nipple discharge, no palpable mass, no enlarged lymph nodes. Right breast: No skin change, no nipple retraction, no nipple discharge, no palpable mass, no enlarged lymph nodes . Well-healed transverse scar at the 9 o'clock position of the right breast. Mild fibrocystic changes bilaterally. Resp Effort & Inspection: normal respiratory effort Skin General skin exam: no rashes or lesions noted and dry skin Neuro General: patient oriented x3 Extrem General: Yes no clubbing, cyanosis or edema Assessment & Plan Assessment & Plan (1) Lobular carcinoma in situ (LCIS) of breast: Comment: Right Code(s): D05.00 - Lobular carcinoma in situ of unspecified breast Qualifiers: Laterality: right Qualified Code(s): D05.01 - Lobular carcinoma in situ of right breast (2) At high risk for breast cancer: Code(s): Z91.89 - Other specified personal risk factors, not elsewhere classified Plan 53-year-old female with history of lobular carcinoma in situ of the right breast status post lumpectomy performed on 11/19/2014. Patient is being followed on the high risk breast cancer screening protocol. Her latest mammogram of 01/31/2023 revealed no mammographic evidence of malignancy (BI-RADS 1). Her Tyrer-Cuzick remaining lifetime risk of breast cancer was calculated at 52%. Breast MRI performed last week at [facility] [place] revealed no MR specific evidence of malignancy (BI-RADS 2). Examination today revealed no suspicious findings in either breast. She will continue with her annual mammogram and breast MRI and follow-up in 6 months for routine examination. She is welcome to call sooner for any new concerns. Coding Level of Care Code Est Pt Level 3 (81040) Diagnoses Lobular carcinoma in situ (LCIS) of right breast D05.01 Laterality: right At high risk for breast cancer Z91.89
[2023-08-16 15:52] VITALS: BP 127/78; PULSE 77; BMI 24.0
== END 2023-08-16 16:06 | disposition home or self-care (01) ==
PROVIDERS: PCP Nurse Practitioner Family; Visit Provider Surgery
DX: D05.01 Lobular carcinoma in situ of right breast (principal); Z91.89 Other specified personal risk factors, not elsewhere classified
CPT/HCPCS: 99213

== ENCOUNTER → 2023-08-16 15:45 | Outpatient (BNVA) | payer OTHER, SELFPAY | PROVIDERS: PCP Nurse Practitioner Family; Visit Provider Surgery ==

== ENCOUNTER 2023-12-26 06:44 | Outpatient (REF) | payer OTHER, SELFPAY ==
[2023-12-26 07:00] LABS: MANUAL DIFF FLAG NO
[2023-12-26 07:24] LABS: Basophils Absolute Auto 0.1 X10*3/uL (0.0-0.2); Eosinophils Absolute Auto 0.1 X10*3/uL (0.0-0.4); Eosinophils Percent Auto 1.6 % (0-4); Hematocrit 39.7 % (37.0-47.0); Hemoglobin 13.4 g/dl (12.0-16.0); Imm Gran Abs Auto 0.01 X10*3/uL (0.00-0.03); Imm Gran Pct Auto 0.2 % (0.0-0.4); Lymphocytes Absolute Auto 2.5 X10*3/uL (1.2-4.9); Mean Corpuscular HGB Conc 33.8 g/dl (31.0-35.0); Mean Corpuscular Hemoglobin 31.9 pg (27.0-33.0); Mean Corpuscular Volume 94.5 fL (80.0-98.0); Monocytes Absolute Auto 0.6 X10*3/uL (0.1-1.2); Monocytes Percent Auto 10.9 % (2-11); Neutrophils Absolute Auto 1.9 x10*3/uL (2.0-8.3); Neutrophils Percent Auto 37.3 % (45-73); Platelet Count 229 X10*3/uL (160-400); Red Cell Distribution Width 13.1 % (11.0-16.0); White Blood Count 5.1 X10*3/uL (4.8-10.8)
[2023-12-26 07:39] LABS: Alanine Aminotransferase 16 U/L (0-31); Albumin Level 4.3 g/dL (3.5-5.0); Alkaline Phosphatase 59 U/L (39-117); Anion Gap 12 (12-20); Aspartate Amino Transferase 17 U/L (5-31); Bilirubin Total 0.3 mg/dL (0.0-1.0); Blood Urea Nitrogen 14 mg/dL (9-16); Calcium 10.1 mg/dL (8.4-10.2); Carbon Dioxide 28 mmol/L (22-29); Chloride 106 mmol/L (96-108); Cholesterol 205 mg/dL (<200); Estimated Glomerular Filt Rate > 60; Glucose Fasting 96 mg/dL (60-99); HDL Cholesterol 78 mg/dL (>40); LDL Cholesterol Calculated 115 mg/dL (<100); Potassium 5.6 mmol/L (3.3-5.1); Sodium 140 mmol/L (135-145); Total Protein 6.9 g/dL (6.5-8.0); Triglycerides 61 mg/dL (<150)
== END 2023-12-26 06:45 | disposition home or self-care (01) ==
LOC: HO.LAB 06:44
PROVIDERS: PCP Nurse Practitioner Family; Visit Provider Internal Medicine Medical Oncology
DX: E55.9 Vitamin D deficiency, unspecified (principal); E66.3 Overweight
CPT/HCPCS: 36415; 80053; 80061; 85025

== ENCOUNTER 2024-02-04 15:52 | Outpatient (REF) | payer OTHER, SELFPAY ==
--- NOTE | ~2024-02-04 | MM_ITS ---
EXAMINATION: MM SCREENING DIGITAL BREAST TOMOSYNTHESIS, BILATERAL CLINICAL INFORMATION: Screening. Asymptomatic. COMPARISON: Mammography: Comparison is made with available priors TECHNIQUE: Digital breast mammography with tomosynthesis is performed in both the craniocaudal and mediolateral oblique views along with computer-aided detection (CAD). FINDINGS: The breasts are heterogeneously dense, which may obscure small masses (ACR BI-RADS breast composition Category c). There are no significant masses, abnormal calcifications, or other abnormalities. MM/MM tomosynthesis screening BI IMPRESSION: No mammographic evidence of malignancy. ASSESSMENT: BI-RADS BI-RADS 1 - Negative RECOMMENDATION: Routine annual mammography screening. 1 year F/U This examination should not preclude the clinical evaluation of a suspicious palpable abnormality. This patient's information was entered into a reminder system with a target due date for their next mammogram. Electronically signed by: Thi Espinoza DO 02/19/2024 09:21 AM EDT
== END 2024-02-04 15:53 | disposition home or self-care (01) ==
LOC: HO.MAMMO 15:52
PROVIDERS: PCP Internal Medicine Medical Oncology; Visit Provider Nurse Practitioner Family
DX: Z12.31 Encounter for screening mammogram for malignant neoplasm of breast (principal)
CPT/HCPCS: 77063; 77067

== ENCOUNTER → 2024-02-04 16:00 | Outpatient (BNV) | payer OTHER, SELFPAY | PROVIDERS: PCP Internal Medicine Medical Oncology; Visit Provider Internal Medicine | DX: Z12.31 Encounter for screening mammogram for malignant neoplasm of breast (principal) | CPT/HCPCS: 77063; 77067 ==

== ENCOUNTER 2024-03-05 15:26 | Outpatient (REF) | payer OTHER, SELFPAY ==
--- NOTE | ~2024-03-05 | US_ITS ---
EXAMINATION: US DIAGNOSTIC ULTRASOUND BREAST, RIGHT CLINICAL INFORMATION: Provider felt palpable mass 7:00 axis left breast. Patient states she cannot definitively feel the abnormality today. Patient had recent screening mammography 02/04/2024, which was reviewed, and showed no evidence of malignancy. BI-RADS 1. COMPARISON: Screening mammography 02/04/2024. Exams dating back to 2019. No prior relevant ultrasound. TECHNIQUE: Ultrasound of the right breast is performed with real-time montgomery scale imaging and color Doppler. Attention was given to the lower outer quadrant, to include the the region of palpable concern. FINDINGS: There is no focal suspicious finding. There is no solid mass, architectural abnormality, cystic abnormality, abnormal shadowing, or edema in the soft tissue planes. Only normal breast parenchyma is identified. US/US breast RT limited mamm only IMPRESSION: No findings suspicious for malignancy. No imaging correlate to the focus of palpable concern right breast 7:00 axis. Recommend clinical management and follow-up. Otherwise, recommend the patient resume routine annual screening mammography. ASSESSMENT: BI-RADS 1: Negative RECOMMENDATION: 1. Patient should be managed based on the clinical impression. Decision to proceed with biopsy should be based on clinical grounds and degree of clinical concern. 2. Otherwise, routine annual screening mammography. This patient's information was entered into a reminder system with a target due date for their next mammogram. Electronically signed by: LuisM iguel Castañeda MD 03/05/2024 04:17 PM EDPoncho
== END 2024-03-05 15:27 | disposition home or self-care (01) ==
LOC: HO.MAMMO 15:26
PROVIDERS: Absent Provider Surgery; PCP Nurse Practitioner Family; Referring Provider Internal Medicine Medical Oncology; Visit Provider Obstetrics & Gynecology Gynecology
DX: N63.13 Unspecified lump in the right breast, lower outer quadrant (principal)
CPT/HCPCS: 76642

== ENCOUNTER → 2024-03-05 15:30 | Outpatient (BNV) | payer OTHER, SELFPAY | PROVIDERS: Absent Provider Surgery; PCP Nurse Practitioner Family; Referring Provider Internal Medicine Medical Oncology; Visit Provider Radiology Diagnostic Radiology | DX: D24.1 Benign neoplasm of right breast (principal) | CPT/HCPCS: 76642 ==

== ENCOUNTER 2024-03-06 15:41 | Outpatient (AMB) | payer OTHER, SELFPAY ==
--- NOTE | 2024-03-06 15:51 | A.OFFVIS_ITS ---
Vital Signs 03/06/24 15:55 Height 5 ft 7 in Weight 153 lb 7.068 oz BMI 24.0 Pulse 76 Intake Visit Reasons: 6 month breast exam Intake Note: Patient is seen in office for 6 month follow up visit, breast exam. Pt c/o: no concerns or changes mm: 02/04/24 Toolroom Helper Required: No Education Courses Sales Representative: Education Courses Sales Representative Present Accompanied by: Self / Same As Patient Allergies epinephrine [EPINEPHRINE] Allergy (Intermediate, Verified 03/06/24 15:55) HEART RACES, palpitations, tachycardia Sulfa (Sulfonamide Antibiotics) [SULFA (SULFONAMIDE ANTIBIOTICS)] Allergy (Intermediate, Verified 03/06/24 15:55) RASH Medication List - Last Reconciled 03/06/24 by Marc Odell MD cholecalciferol (vitamin D3) 25 mcg PO DAILY HPI Comments Details: 54-year-old female patient, former patient of Dr. Ceja returning today for high risk breast cancer examination. She has a strong family history of colon cancer and genetic testing on 08/16/2011 revealed no clinically significant mutations or variants of unknown significance. Updated testing on 11/13/2018 revealed no deleterious mutations and no mutations of unknown significance. She previously underwent a right breast excision of a papilloma on 11/19/2014. Final pathology revealed lobular carcinoma in-situ arising from a complex sclerosing lesion. She was placed on a high risk screening protocol including yearly mammogram and MRIs. She was evaluated by Dr. Paolmo and placed on tamoxifen but was later discontinued due to hot flashes and memory loss. She restarted in July 2017, 3 times weekly and completed the meds on 12/27/2019. She underwent MR guided biopsy on 05/10/2017 for a masslike enhancement in the right breast which revealed fibroadenomatoid changes. Her most recent mammogram of 02/04/2024 revealed no mammographic evidence of malignancy (BI-RADS 1). Repeat mammography in 1 year was recommended. Breast MRI performed on 05/30/2022 revealed no MR specific evidence of malignancy (BI-RADS 2).. Routine follow-up in 1 year is recommended (BI-RADS 2). Currently she feels well and denies any ongoing breast symptoms. [facility], [facility] Surgical History H/O colonoscopy History of tonsillectomy History of right breast biopsy History of appendectomy Family History Father Colon cancer Cancer of pancreas Mother Bladder cancer HTN (hypertension) High cholesterol H/O aortic valve replacement Maternal Grandmother Cancer of pancreas Paternal Grandmother No problems noted. 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 Cognitive needs: No Hearing needs: No Vision needs: No Review of Systems Const All systems reviewed & are unremarkable except as noted in HPI and below Denies nipple discharge Skin/Breast Denies breast swelling, Denies breast skin changes, Denies breast pain, Denies breast mass, Denies change in breast shape, Denies nipple discharge and Denies rash [place]/Lymph Denies lymphadenopathy Physical Exam Vital Signs: Last Vital Signs Pulse 76 03/06/24 15:55 BMI result Body Mass Index 24.0 Const General: cooperative, comfortable, no acute distress, alert and awake Nutritional Appearance: average body habitus Orientation/consciousness: patient oriented x3 Limitations: no limitations Neck Neck: Yes normal visual inspection and Yes no lymphadenopathy Chest Other: Left breast: No skin change, no nipple retraction, no nipple discharge, no palpable mass, no enlarged lymph nodes. Right breast: No skin change, no nipple retraction, no nipple discharge, no palpable mass, no enlarged lymph nodes . Well-healed transverse scar at the 9 o'clock position of the right breast. Mild fibrocystic changes bilaterally. Resp Effort & Inspection: normal respiratory effort Skin General skin exam: no rashes or lesions noted and dry skin Neuro Other: Mobility Assessment: 1. 3 meter assessment time (seconds): 5 2. Gait observations: Normal balance and gait General: patient oriented x3 Extrem General: Yes no clubbing, cyanosis or edema Assessment & Plan Assessment & Plan (1) Lobular carcinoma in situ (LCIS) of breast: Comment: Right Code(s): D05.00 - Lobular carcinoma in situ of unspecified breast Category: Medical Qualifiers: Laterality: right Qualified Code(s): D05.01 - Lobular carcinoma in situ of right breast (2) At high risk for breast cancer: Code(s): Z91.89 - Other specified personal risk factors, not elsewhere classified Category: Medical Plan 54-year-old female with history of lobular carcinoma in situ of the right breast status post lumpectomy performed on 11/19/2014. Patient is being followed on the high risk breast cancer screening protocol. Her latest mammogram of 02/04/2024 revealed no mammographic evidence of malignancy (BI-RADS 1). Her Tyrer-Cuzick remaining lifetime risk of breast cancer was calculated at 52%. She is now due for an annual with MRI and this will be ordered today. Examination today revealed no suspicious findings in either breast. She will continue with her annual mammogram and breast MRI and follow-up in 6 months for routine examination. She is welcome to call sooner for any new concerns. Orders: Orders MR breast BI wo/w con 06/02/24 D05.01 - Lobular carcinoma in situ of right breast, Z91.89 - Other specified personal risk factors, not elsewhere classified Coding Level of Care Code Est Pt Level 3 (64490) Diagnoses Lobular carcinoma in situ (LCIS) of right breast D05.01 Laterality: right At high risk for breast cancer Z91.89
[2024-03-06 15:55] VITALS: PULSE 76; BMI 24.0
== END 2024-03-06 16:06 | disposition home or self-care (01) ==
PROVIDERS: PCP Nurse Practitioner Family; Visit Provider Surgery
DX: D05.01 Lobular carcinoma in situ of right breast (principal); Z91.89 Other specified personal risk factors, not elsewhere classified
CPT/HCPCS: 99213

== ENCOUNTER → 2024-03-06 15:41 | Outpatient (BNVA) | payer OTHER, SELFPAY | PROVIDERS: PCP Nurse Practitioner Family; Visit Provider Surgery ==

== ENCOUNTER 2024-07-28 15:40 | Outpatient (REF) | payer OTHER, SELFPAY ==
--- NOTE | ~2024-07-28 | MR_ITS ---
EXAMINATION: MR BREAST WITHOUT AND WITH CONTRAST, BILATERAL CLINICAL INFORMATION: High risk screening. Personal history of right breast LCIS post excision and 2016.. Benign right MRI guided core needle biopsy in 2017. COMPARISON: Mammogram and ultrasound February, breast MRI May 30, 2022 May 09, 2021. TECHNIQUE: MR imaging of the breast was performed using T1, T2 and fat saturated techniques. Dynamic multiphase imaging was also performed after administration of intravenous gadolinium contrast agent. Computer generated 3-D reconstruction was performed. FINDINGS: There is heterogeneous fibroglandular breast tissue with moderate background enhancement. LEFT BREAST: No suspicious enhancing masses or areas of nonmass enhancement. No internal mammary or axillary adenopathy. RIGHT BREAST: No suspicious enhancing masses or areas of nonmass enhancement. Artifact from marker clip from previous needle core biopsy. No internal mammary or axillary adenopathy. Limited views of the chest and abdomen are unremarkable. MR/MR breast BI wo/w con IMPRESSION: No MRI evidence of malignancy bilateral breasts. ASSESSMENT: LEFT BREAST: BI-RADS 1-Negative RIGHT BREAST: BI-RADS 2 benign RECOMMENDATIONS: Yearly screening mammography. Yearly screening MRI surveillance. Electronically signed by: Thi Espinoza DO 07/31/2024 11:41 AM EST
[2024-07-28] MEDS: gadobutroL 7.5 ML VIAL IVPUSH (16:38)
--- OUTSIDE RECORDS SUMMARY | 2024-07-28 18:31 | XMS_ITS | Encounter Summary ---
Author Organization [employer] Address [address] [place] [address] [address] [place] [address] Care Team Providers Care Template Worker Name Role Phone Unavailable Primary Care Provider Unavailabl e Encounter Details Date Type Department Care Team (Latest Contact Info) Description 02/28/2019 Abstract [facility] CONVERSIONS Dental, Provider, DDS Social History Tobacco Use Types Packs/Day Years Used Date Smoking Tobacco: Never Assessed Comments Unknown Sex and Gender Information Value Date Recorded Sex Assigned at Female 03/27/2022 10:23 AM EDT Legal Sex Female 10:23 AM EDT Gender Identity Female 03/27/2022 10:23 AM EDT Sexual Orientation Straight 03/27/2022 10 :23 AM EDT documented as of this encounter Plan of Treatment Upcoming Encounters Date Type Department Care Team (Late st Contact Info) Description 12/31/2024 8:00 AM EDT Office Visit [facility] [address], [place] [phone] Evie Munoz [address] [place], [place] [phone] documented as of this encounter Visit Diagnoses Not on filedocumented in this encounter
--- OUTSIDE RECORDS SUMMARY | 2024-07-28 18:31 | XMS_ITS ---
Author Organization [facility] Address [address] [place] [address] Care Team Providers Care Justice Court Judge Name Role Phone KATHRYN DURAND M.D Primary Care Provider Radha Dominguez Unavailable [phone] Allergies Allergen (clinical drug ingredient) Drug/Non Drug Allergy documented on EMR Reaction Allergy Type Onset Date Status epinephrine Epinephrine Elevated Heart Rate Drug Allergy Active Substance with sulfonamide structure and antibacterial mechanism of action (substance) Sulfa Antibiotics Unknown Drug Allergy Active Results Component Value Reference Range Notes Urinalysis Reviewed date:02/20/2024 03:24:02 PM Interpretation: Performing Lab: Notes/Report: PH 5.0 PROTEIN Neg GLUCOSE Neg BLOOD Neg [id number] IGP No Culture 30 Plus Reviewed date:02/25/2024 06:25:21 PM Interpretation: Performing Lab:[facility] [place], [address], [address], [place], Phone - [phone], Director - [facility] Notes/Report: Clinical Information:[id number] Dates / Results....02/02/21 NIL, Neg HPV Other..............Post Menopausal No. of containers..01 ThinPrep Vial DIAGNOSIS: NEGATIVE FOR IN TRAEPITHELIAL LESION OR MALIGNANCY. Specimen adequacy: Satisfactory for evaluation. Endocervical and/or squamous metaplastic cells (endocervical component) are present. Clinician provided ICD10: Z0 1.419 Performed by: Cceelia Stevens ytotechnologist ([facility]) . . Note: The Pap smear is a screening test designed to aid in the detection of premalignant and malignant conditions of the uterine cervix. It is not a diagnostic procedure and should not be used as the sole means of detecting cervical cancer. Both false-positive and false-negative reports do occur. . Test Methodology: This liquid based ThinPrep(R) pap test was screened with the use of an image guided system. HPV Aptima Negative Negative This nucleic acid amplification test detects fourteen high-risk HPV types (16,18,31,33,35,39,45,51,52,56,58 ,59,66,68) without differentiation. HPV Genotype Reflex Criteria not met, HPV Genotype not performed. PDF Report Reviewed date:02/25/2024 06:26:24 PM Interpretation: Performing Lab:[facility], [address], [address], [place], Phone - [phone], Director - [facility] Notes/Report: Clinical Information:[id number] Dates / Results....02/02/21 NIL, Neg HPV Other..............Post Menopausal No. 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 Yes How often did you have six o r more drinks on one occasion in the past year? Never (0 point) How many drinks did you have on a typical day when you were drinking in the past year? 1 or 2 drinks (0 point) How often did you have a dri nk containing alcohol in the past year? Monthly or less (1 point) Points 1 Interpretation Negative Tobacco Control (Standard) Question Answer Notes Tobacco use: Nonsmoker Vital Signs Temperature 97.4 degrees Fahrenheit 02/20/20 24 Blood pressure systolic 104 mm Hg 02/20/20 24 Blood pressure diastolic 68 mm Hg 024 Height 66.5 in 02/20/2024 Weight 150 lbs 02/20/2024 BMI 23.85 kg/m2 02/20/2024 Encounters Encounter Location Date Provider Diagnosis [address] [place] [address] 02/20/2024 Radha Anderson Encounter for gynecological examination (general) (routine) without abnormal findings Z01.419 ; Encounter for screening mammogram for malignant neoplasm of breast Z12.31 ; Unspecified lump in the right breast, lower outer quadrant N63.13 ; Lobular carcinoma in situ of right breast D05.01 ; Family history of malignant neoplasm of breast Z80.3 and Dense breasts, unspecified R92.30 Assessments Encounter Date Diagnosis (ICD Code) Assessment Notes Treatment Notes Treatment Clinical Notes Section Notes 02/20/2024 Encounter for gynecological examination (general) (routine) without abnormal findings (ICD-10 - Z01.419) PAP TEST WITH HPV TYPING WAS OBTAINED. 02/20/2024 Encounter for screening mammogram for malignant neoplasm of breast (ICD-10 - Z12.31) REGULAR MAMMOGRAMS AND SBE'S WERE RECOMMENDED. 02/20/2024 Unspecified lump in the right breast, lower outer quadrant (ICD-10 - N63.13) DISCUSSED FINDINGS AND HAD PAT PALPATE THE SUPERFICIAL MASS. SINCE SHE JUST HAD HER MAMMOGRAM, WILL ORDER RIGHT BREAST ULTRASOUND. WE DO NOT HAVE THE RESULTS OF HER RECENT MAMMOGRAM. WILL GET THIS AND REVIEW. 02/20/2024 Lobular carcinoma in situ of right breast (ICD-10 - D05.01) CONTINUE FOLLOW UP WITH DR MUNOZ. 02/20/2024 Family history of malignant neoplasm of breast (ICD-10 - Z80.3) PAT IS BRCA NEGATIVE. 02/20/2024 Dense breasts, unspecified (ICD-10 - R92.30) DISCUSSED DENSE BREASTS ON MAMMOGRAM AND ITS IMPLICATIONS. 3D MAMMOGRAMS WERE RECOMMENDED. Plan Of Treatment Treatment Notes Assessment Notes Encounter for gynecological examination (general) (routine) without abnormal findings PAP TEST WITH HPV TYPING WAS OBTAINED. Encounter for screening mamm ogram for malignant neoplasm of breast REGULAR MAMMOGRAMS AND SBE'S WERE RECOMMENDED. Unspecified lump in the righ t breast, lower outer quadrant DISCUSSED FINDINGS AND HAD PAT PALPATE THE SUPERFICIAL MASS. SINCE SHE JUST HAD HER MAMMOGRAM, WILL ORDER RIGHT BREAST ULTRASOUND. WE DO NOT HAVE THE RESULTS OF HER RECENT MAMMOGRAM. WILL GET THIS AND REVIEW. Lobular carcinoma in situ of right breas t CONTINUE FOLLOW UP WITH DR MUNOZ. Family history of malignant neoplasm of breast PAT IS BRCA NEGATIVE. Dense breasts, unspecified DISCUSSED DENSE BREASTS ON MAMMOGRAM AND ITS IMPLICATIONS. 3D MAMMOGRAMS WERE RECOMMENDED. Pending Test Test Name Order Date MM Digital Mammo Screening 02/20/2024 Left Breast Ultrasound 02/20/2024 Next Appt Details Follow Up: 1 Year, Reason: Provider Name:Radha giron, 03/18/2025 03:00:00 PM, [address], [address], [place], [address], Progress Notes * JS SALDANA THERESADOB:0 1970 (53 yo F)Acc No.[id number]:02/20/2024 PROGRESS NOTES Patient:?ARA GILBERT MARIA ALEJANDRA Appointment Provider:?Radha giron M.D. 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 YADIRA ENTERED MENOPAUSE IN 2014.? SHE IS AND DENIES DYSPAREUNIA. S/P RIGHT LUMPECTOMY FOR LCIS IN 2014.? SHE USED TO SEE DR LEWIS BUT IS NOW SEEING DR MUNOZ.? DR LEWIS .? HER PATERNAL AUNT HAD BREAST CA AND HER FATHER AND PGM HAD COLON CA.? PAT IS BRCA NEGATIVE,? PAT HAS DENSE BREASTS AND HER BREAST CA RISK IS 66%.? SHE HAS HAD YEARLY MAMMOGRAMS AND SCREENING BREAST MRI'S 6 MONTHS AFTER HER MAMMOGRAMS FOR YEARS WITH NEGATIVE FINDINGS.? HER LAST MAMMOGRAM WAS DONE IN JAN 2024.? WE DO NOT HAVE THE RESULTS YET. HER LAST PAP TEST IN 2020 WAS NEGATIVE AND HPV NEGATIVE. HER LAST BMD IN 2020 SHOWED THE LOWEST T-SCORE TO BE -1.4 AT THE FEMORAL NECK.? FRAX=9.6%/0.8%. SHE HAD COLONOSCOPIES DONE IN 2015 AND 2022. MODERNA X 2. ???Annual:? Patient presents for annual exam, ages 50-59. ?General Health Maintenance:?Current breast complaints:?no breast pain, mass, discharge, or skin changes ?Urinary problems:?patient reports no urinary health problems or bowel health problems ?Calcium intake:?takes adequate calcium via diet and supplementation ?Significant FROTHING MACHINE OPERATOR problems:?no significant water softener servicer and installer symptoms or problems * ROS:?general:?no?chest pain.?no?palpitations.?no?headache.?no?cough.?no?shortness of breath.?no?fever.?no?unexplained weight loss.?no?nausea/vomiting.?no?change in bowel movements.?no blood in stool.?no?genitourinary complaints.?no?skin complaints.? * Medical History:? 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 Monique orders annual MRI and mammograms.?LMP and menses?Menopause, 07/2017 (withdrawal after aygestin).?History of STD's:?none.? 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 * OB History:?Total pregnancies?2.?Total living children?2.?NVD?2.? * Surgical History:?Appendecto my Tonsillectomy [place] Teeth R breast bx (LCIS) 2014 * Hospitalization/Major Diagno stic Procedure:?2 Vaginal Deliveries See Surgical Hx * Family History:?Mother: dece ased, Bladder Cancer.?Father: , Colon Cancer.?Paternal Grand Mother: Colon Cancer.?Paternal aunt: Breast Cancer.? * Social History:?Tobacco Use:?Tobacco Control (Standard)?Tobacco use:?Nonsmoker ???Sexual History:?Sexual History?Had sex in the past 12 months (vaginal, oral, or anal)?: Yes, with: Men only, Use protection?: No, Have you ever had a Sexually transmitted disease?: No.?Details of Sexual History?Are you sexually active??Yes ???Drugs/Alcohol:?Drugs?Have you used drugs other than those for medical reasons in the past 12 months??No ???Miscellaneous:?Children: yes, 2. ?Domestic violence: no. ?Exercise: yes. ?Home smoke detector use: yes. ?Living with: spouse. ?Marital status: . ?Natural support system: yes. ?Occupation: Works full-time. ?Sexual abuse: no. ?Sexually active: yes, monogamous relationship. ?Verbal abuse: no. ???Drug/Alcohol:?AUDIT-C (Standard)?Did you have a drink containing alcohol in the past year??Yes ?How often did you have six or more drinks on one occasion in the past year??Never (0 point) ?How many drinks did you have on a typical day when you were drinking in the past year??1 or 2 drinks (0 point) ?How often did you have a drink containing alcohol in the past year??Monthly or less (1 point) ?Points?1 ?Interpretation?Negative * Medications:?TakingVitamin D -3 Taking Vitamin D-3 DiscontinuedDoxy 100 , Notes to Pharmacist: PRNMedication List reviewed and reconciled with the patientDiscontinued Doxy 100 , Notes to Pharmacist: PRNMedication List reviewed and reconciled with the patient * Allergies:?Epinephrine: Elev ated Heart Rate - Side EffectsSulfa Antibiotics: Allergyno[Allergies Verified] Objective: * Vitals:?Ht: 66.5 in, Wt:150l bs, BMI:23.85Index, BP:104/68mm Hg, Temp:97.4F. * Examination: ???General Exam: ?CONSTITUTIONAL:?General Appearance:?alert, in no acute distress, normal, well nourished ?NECK/THYROID:?Inspection/Palpation:?normal ?Thyroid:?normal size and shape ?RESPIRATORY:?Auscultation: clear to auscultation bilaterally, Respiratory Effort: normal.?CARDIOVASCULAR:?Auscultation: regular rate and rhythm.?BREAST, Right:?Inspection/Palpation:?SUPERFICIAL MASS AT THE 8 O'CLOCK POSITION OF THE RIGHT BREAST, NONTENDER, MOVABLE. ?BREAST, Left:?Inspection/Palpation:?no discharge, no masses present, no nipple retraction, no skin changes, no skin dimpling, no tenderness, no lymphadenopathy, no axillary mass, no axillary tenderness ?GASTROINTESTINAL:?Abdomen:?no masses, nontender, nondistended ?Liver and Spleen:?normal ?Hernias:?no hernias present, no inguinal adenopathy ?MUSCULOSKELETAL:?Inspection/Palpation:?no clubbing, cyanosis, or edema ?SKIN:?Skin:?normal ?NEURO/PSYCH:?Orientation:?time , place, person ?Mood/Affect:?normal?Genitourinary: ?EXTERNAL GENITALIA:?External Genitalia:?normal, no lesions ?VAGINA:?Vagina:?normal appearance, no abnormal discharge, no lesions ?BLADDER:?Bladder:?no mass, nontender ?URETHRA:?Urethra:?no erythema or lesions present ?CERVIX:?Cervix:?no lesions, nontender ?UTERUS:?Uterus:?nontender, normal contour, normal mobility, normal size ?ADNEXA:?Adnexa:?no masses, no tenderness ?ANUS AND PERINEUM:?Anus/Perineum:?visually normal??? Assessment: * Assessment: 1.?Encounter for gynecologic al examination (general) (routine) without abnormal findings - Z01.419???2.?Encounter for screening mammogram for malignant neoplasm of breast - Z12.31???3.?Unspecified lump in the right breast, lower outer quadrant - N63.13???4.?Lobular carcinoma in situ of right breast - D05.01???5.?Family history of malignant neoplasm of breast - Z80.3???6.?Dense breasts, unspecified - R92.30??? Plan: * Treatment: ? Value Reference Range ?. . - * ?HPV Aptima Negative Negative - * Vaginal/Cervical, LMP: MenoT his lab was reviewed by REVA OSEGUERA on 02/25/2024 at 18:25 PM EDT ?LAB: Urinalysis (Collection Date & Time - 02/20/2024)* ? Value Reference Range ?PH 5.0 * ?PROTEIN Neg * ?GLUCOSE Neg * ?BLOOD Neg * D.ISIDRA 02/20/2024 03:10:21 PM EDT > Notes: PAP TEST WITH HPV TYPING WAS OBTAINED.??2.?Encounter for screening mammogram for malignant neoplasm of breast?Imaging: MM Digital Mammo Screening Notes: REGULAR MAMMOGRAMS AND SBE'S WERE RECOMMENDED.??3.?Unspecified lump in the right breast, lower outer quadrant?Imaging: Left Breast Ultrasound* RT BREAST MASS 7 O CLOCK ([facility]VIS PERFICIAL) PT JUST HAD MAMMO DONE THERE. ORDER FAXED TO [facility] instructed-[phone] (PT HAS PHONE NUMBER AND WILL CHECK STATUS) Notes: DISCUSSED FINDINGS AND HAD PAT PALPATE THE SUPERFICIAL MASS. SINCE SHE JUST HAD HER MAMMOGRAM, WILL ORDER RIGHT BREAST ULTRASOUND. WE DO NOT HAVE THE RESULTS OF HER RECENT MAMMOGRAM. WILL GET THIS AND REVIEW.?? 4.?Lobular carcinoma in situ of right breast? Notes: CONTINUE FOLLOW UP WITH DR MUNOZ.??5.?Family history of malignant neoplasm of breast? Notes: PAT IS BRCA NEGATIVE.??6.?Dense breasts, unspecified? Notes: DISCUSSED DENSE BREASTS ON MAMMOGRAM AND ITS IMPLICATIONS. 3D MAMMOGRAMS WERE RECOMMENDED.?? * Procedure Codes:? * Preventive Medicine:? ??YOUR PREVENTIVE WELLNESS PLAN:?Osteoporosis prevention?Calcium, D, strength training.?Breast Cancer Screening (Mammogram):?annually.?Cervical Cancer Screening (Pap Smear):?q 3 years with HPV screen.?Colorectal Cancer Screening:?q 10 years.? * Follow Up:?1 Year * Images: Billing Information: * Visit Code:? [id number] Preventive Care New Pt. Age 40-64. 02647 Preventive Care Est Pt. Age 40-64. * Procedure Codes:? * Sign off status: Completed true * Appointment Provider:?Radha Anderson M.D. Date:?02/20/2024 Generated for Anton bhakta/Mary Ellen/Nonaitting on:?07/28/2024 06:31 PM EST History and Physical Notes * HPI (History of Present Illness) Category Sub-Category Detail Notes Category Not es New/Follow-up Patient Consult YADIRA ENTERED MENOPAUSE IN 2014. SHE IS AND DENIES DYSPAREUNIA. S/P RIGHT LUMPECTOMY FOR LCIS IN 2014. SHE USED TO SEE DR LEWIS BUT IS NOW SEEING DR MUNOZ. DR LEWIS . HER PATERNAL AUNT HAD BREAST CA AND HER FATHER AND PGM HAD COLON CA. PAT IS BRCA NEGATIVE, PAT HAS DENSE BREASTS AND HER BREAST CA RISK IS 66%. SHE HAS HAD YEARLY MAMMOGRAMS AND SCREENING BREAST MRI'S 6 MONTHS AFTER HER MAMMOGRAMS FOR YEARS WITH NEGATIVE FINDINGS. HER LAST MAMMOGRAM WAS DONE IN JAN 2024. WE DO NOT HAVE THE RESULTS YET. HER LAST PAP TEST IN 2020 WAS NEGATIVE AND HPV NEGATIVE. HER LAST BMD IN 2020 SHOWED THE LOWEST T-SCORE TO BE -1.4 AT THE FEMORAL NECK. FRAX=9.6%/0.8%. SHE HAD COLONOSCOPIES DONE IN 2015 AND 2022. MODERNA X 2. 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 problems:: n o significant water softener servicer and installer symptoms or problems Examination Category Sub-Category Detail Notes Category Not es General Exam CONSTITUTIONAL: General Appearan ce:: alert, in no acute distress, normal, well nourished NECK/THYROID: Thyroid:: normal size and shape Inspection/Palpation:: normal RESPIRATORY: Auscultation: clear to auscultation bilaterally, Respiratory Effort: normal CARDIOVASCULAR: Auscultation: regula r rate and rhythm GASTROINTESTINAL: Hernias:: no hernias present, no inguinal adenopathy Liver and Spleen:: normal Abdomen:: no masses, nontender, nondiste nded MUSCULOSKELETAL: Inspection/Palpation:: no clubb ing, cyanosis, or edema SKIN: Skin:: normal NEURO/PSYCH: Mood/Affect:: normal Orientation:: time , place, person BREAST, Right: Inspection/Palpation:: SUPERFICI AL MASS AT THE 8 O'CLOCK POSITION OF THE RIGHT BREAST, NONTENDER, MOVABLE. BREAST, Left: Inspection/Palpation :: no discharge, no masses present, no nipple retraction, no skin changes, no skin dimpling, no tenderness, no lymphadenopathy, no axillary mass, no axillary tenderness Genitourinary EXTERNAL GENITALIA: External Genitalia:: nor mal, no lesions VAGINA: Vagina:: normal appearance, no a bnormal discharge, no lesions BLADDER: Bladder:: no mass, nontender URETHRA: Urethra:: no erythema or lesions present CERVIX: Cervix:: no lesions, nontender UTERUS: Uterus:: nontender, normal conto ur, normal mobility, normal size ADNEXA: Adnexa:: no masses, no tendernes s ANUS AND PERINEUM: Anus/Perineum:: visually norm al
--- OUTSIDE RECORDS SUMMARY | 2024-07-28 18:31 | XMS_ITS | Encounter Summary ---
Author Organization [employer] Address [address] [place] [address] Care Team Providers Care Clearing Supervisor Name Role Phone Unavailable Primary Care Provider Unavailabl e Reason for Visit * Reason Comments Routine Cleaning Encounter Details Date Type Department Care Team (Late st Contact Info) Description 06/30/2024 8:00 AM EST Office Visit [facility] [address] [place] [address] [phone] Evie Munoz [address] [place] [address] Social History Tobacco Use Types Packs/Day Years Used Date Smoking Tobacco: Never Smokeless Tobacco: Never Alcohol Use Standard Drinks/Week Comments Defer 0 (1 standard drink = 0.6 oz pur e alcohol) Comments Unknown Sex and Gender Information Value Date Recorded Sex Assigned at Female 03/27/2022 10:23 AM EDT Legal Sex Female 10:23 AM EDT Gender Identity Female 03/27/2022 10:23 AM EDT Sexual Orientation Straight 03/27/2022 10 :23 AM EDT documented as of this encounter Last Filed Vital Signs Vital Sign Reading Time Taken Comments Blood Pressure 140/70 06/30/2024 8:09 AM EST Pulse 78 06/30/2024 8:09 AM EST Temperature - - Respiratory Rate - - Oxygen Saturation - - Inhaled Oxygen Concentration - - Weight - - Height - - Body Mass Index - - documented in this encounter Progress Notes * Evie Munoz - 06/30/2024 8:00 AM EST Patient ID: Nilda Nix is a 54 y.o. female. Time Out: Date: 06/30/2024 Location: [facility] Tooth: all Procedure: Prophylaxis Verified the above with patient, litigation assistant, and provider. Confirmed via patient's chart, intraorally and by radiographs. Open Winder: not applicable Treatment Provided Dental procedures in this visit D1110 - PROPHYLAXIS - ADULT (Completed) Service provider: Evie Munoz Billing provider: Zachery Davis DDS Instruments Used: Hand Scalers and Prophy angle Calculus: Light Plaque: Light Stain: None Bleeding: Light Gingiva: inflamed OH: Good OCS: neg findings HNE: neg findings Oral hygiene instructions provided to patient including brushing technique and flossing. Recommendations: Floss daily Recall Frequency: 6 mo NV: Hygienist: Evie Munoz RDH documented in this encounter Plan of Treatment Upcoming Encounters Date Type Department Care Team (Late st Contact Info) Description 12/31/2024 8:00 AM EDT Office Visit [facility] [address] [place] [phone] Evie Munoz [address] [place] [phone] documented as of this encounter Procedures Procedure Name Priority Date/Time Associated Diagnosis Comments PROPHYLAXIS - ADULT Routine 06/30/2024 8:00 AM EST documented in this encounter Visit Diagnoses Not on filedocumented in this encounter
--- OUTSIDE RECORDS SUMMARY | 2024-07-28 18:31 | XMS_ITS ---
Author Organization Faheem Palomo III, MD Address [address] [place] [address] Care Team Providers Care Skoog Patching Machine Operator Name Role Phone KIZZY BELL, KATHRYN Primary Care Provider Unavail able Faheem Palomo Unavailable [phone] DEBBIE LEWIS, FRANCINE Unavailable Unavailable Allergies Allergen [...] Problem Status W/U Status Risk Notes Problem 961486053 Overweight (E66.3) Active confirmed She has gained [...] Provider Diagnosis Faheem Palomo III, MD [address] [place] [address] [address] [place] [address] 07/04/2024 Faheem Palomo Breast lobular neoplasia, right [...] Reason: OV, Routine check-up Provider Name:Faheem Palomo, 01/02/2025 03:30:00 PM, [address] [place] [address] [address], [place], [address], Progress Notes * Nilda HUITRON MDOB :1970 (54 yo F)Acc No.[id number]:07/04/2024 Progress Notes Patient:?Neeraj HUITRON Provider:?Faheem Palomo MD :1970???Age:54 Y???Sex:Female D ate:07/04/2024 Address:[address] [place] [address], [id number] Pcp:KATHRYN DURAND NP Subjective: * Chief Complaints: * ???History of lobular carcin brandon of the right breastFamily history of bladder cancer * HPI: ???COVID-19 Screening:?Questions?Have you had any new onset fever, chills, cough, congestion, sore throat, shortness of breath, muscle aches??No ???:? The patient, a 54-year-old female, presented with [...] with her heart, breathing, or sleep. * ROS:?General/Constitutional:?pain?only normal aches and pains.?Chills?denies.?Fatigue?admits.?Fever?denies.?ENT:?Decreased hearing?denies.?Respiratory:?Cough?denies.?Cardiovascular:?Chest pain with exertion?denies.?Dyspnea on exertion?denies.?Shortness of breath?denies.?Gastrointestinal:?Constipation?occasional.?Decreased appetite?denies.?Diarrhea?denies.?Heartburn?denies.?Nausea?denies.?Rectal bleeding?denies.?Vomiting?denies.?Hematology:?bruising?denies.?petechiae?denies.?Swollen glands?none have been noted.?Genitourinary:?Frequent urination?at night.?Musculoskeletal:?Muscle aches?denies.?Painful joints?denies.?Sciatica?denies.?Weakness?denies.?Skin:?Itching?denies.?Rash?denies.?Skin lesion(s)?denies.?Neurologic:?Difficulty speaking?denies.?Dizziness?denies.?Headache?denies.?Low back pain?denies.?Psychiatric:?Depressed mood?denies.? * Medical History:? * Surgical History:?Apendix re moved 1984tonsils removed biopsy right breast 10/2014negative screening colonoscopy Dr. Garcia 06/2014core biopsy right breast lesion 08/2014excisional biopsy right breast-LCIS 10/2014No history * Hospitalization/Major Diagno stic Procedure:?No history * Family History:?Father: dece ased, colon cancer, pancreatic cancer, diagnosed with Cancer.?Mother: , Urothelial carcinoma with bilateral hydroureter, aortic valve replacement with porcine valve, hyponatremia, left hydroureter, bilateral cataract extraction, hyperthryrodism, atrial fribrillation, multinodular goiter, diagnosed with Cancer, HTN, Hyperlipidemia.?1 brother(s) . 1 son(s) , 1 daughter(s) - healthy. .? Her brother is an insulin-dependent diabetic. Her children are healthy and well. A maternal grandmother had cancer of the pancreas her mother had bladder cancer. Her father had colon and pancreatic cancer. * Social History:?Tobacco Use:?Tobacco Use/Smoking?Patient is a?nonsmoker ?Additional Findings: Tobacco Non-User?Aggressive non-smoker ???She has been to Danilo for 20 years. They have a son and a daughter who are healthy and well. She is not a Ten[employer] and is not currently . * Medications:?TakingVitamin D 2000 UNIT Capsule 1 capsule Orally Once a day Doxycycline Hyclate 100 MG Capsule 1 capsule Orally Once a day Medication List reviewed and reconciled with the patientTaking Vitamin D 2000 UNIT Capsule 1 capsule Orally Once a day Taking Doxycycline Hyclate 100 MG Capsule 1 capsule Orally Once a day Medication List reviewed and reconciled with the patient * Allergies:?EPINEPHrine: Howie rgySulfacetamide: rash - Allergyno[Allergies Verified] Objective: * Vitals:?Ht: 66, Wt: 156, BMI :25.18, BP: 127/63, HR: 72, Temp: 98.3, Wt-k.76. * Examination: ???General Examination: ?GENERAL APPEARANCE:?pleasant, well nourished, well developed, in no acute distress, calm and relaxed, overweight, woman.?HEAD:?atraumatic, normocephalic.?EYES:?eomi, perrla, anicteric, conjugate.?EARS:?normal.?NOSE:?septum intact.?ORAL CAVITY:?normal, unremarkable.?NECK/THYROID:?no jugular venous distention, no carotid bruit, thyroid normal.?LYMPH NODES:?no enlarged lymph nodes,spleen normal.?SKIN:?no suspicious lesions, anicteric.?HEART:?no clicks, gallops, murmurs, or rubs, regular rhythm, S1, S2 normal, no s3, or vascular bruits.?LUNGS:?clear to auscultation .?BREASTS:?no masses palpable bilaterally, no drainage, no discharge, no dimpling, nontender, symmetrical.?ABDOMEN:?bowel sounds normal, no ascites, no organomegaly, no mass, overweight.?RECTAL EXAM:?not examined.?MUSCULOSKELETAL:?extremities unremarkable, no clubbing, cyanosis or edema.?PERIPHERAL PULSES:?normal.?NEUROLOGIC:?alert and oriented, cranial nerves 2-12 grossly intact, deep tendon reflexes 2+ symmetrical, motor strength normal upper and lower extremities, sensory exam intact.?PSYCH:?alert, oriented.? Assessment: * Assessment: 1.?Breast lobular neoplasia, right - D05.01 (Primary)???Notes :The breast exam is normal today. Her imaging has been normal. She is due for an MRI this month which has been scheduled. There is no sign of neoplasm at this time.???2.?Family history of malignant neoplasm, unspecified - Z80.9???Notes :Her mother has a history of bladder cancer. The patient's urine has been unremarkable.???3.?Vitamin D deficiency, unspecified - E55.9???Notes :Her vitamin D level is 48. No change in her regimen was needed.???4.?Overweight - E66.3???Notes :She has gained 5 pounds since her last visit.? She has become slightly overweight.? We discussed diet and nutrition and a weight loss strategy today.??? Plan: * Treatment: * Procedure Codes:? * Preventive Medicine:? ??Counseling:?Care goal follow-up plan:?Counseling for abnormal BMI given?Yes ?Above Normal BMI Follow-up?Dietary needs education * Follow Up:?6 Months, In six months (Reason: OV, Routine check-up) * Images: * Sign off status: Completed true * Provider:?Faheem Palomo MD Date:?11/2024 Generated for Anton bhakta/Mary Ellen/Brandonsmitting on:?07/28/2024 06:31 PM EST History and Physical [...]
--- OUTSIDE RECORDS SUMMARY | 2024-07-28 18:31 | XMS_ITS | Patient Health Record ---
Author Organization Faheem Palomo III, MD Address [address] [place] [address] Care Team Providers Care Mail Carrier Name Role Phone KIZZY BELL, KATHRYN Primary Care Provider Unavail able Faheem Palomo Unavailable [phone] DEBBIE LEWIS, FRANCINE Unavailable Unavailable Allergies Allergen (clinical drug ingredient) Drug/Non Drug Allergy documented on EMR Reaction Allergy Type Onset Date Status sulfacetamide Sulfacetamide rash Drug Allergy Active EPINEPHrine Unknown Drug Allergy Activ e Results Component Value Reference Range Notes Complete Blood Count Auto Di ff Reviewed date:12/27/2023 11:19:28 AM Interpretation: Performing Lab:[facility], [address] [place] [phone] Notes/Report: White Blood Count 5.1 4.8-10.8 X10*3/uL Red Blood Count 4.20 4.20-5.50 X10*6/uL Hemoglobin 13.4 12.0-16.0 g/dl Hematocrit 39.7 37.0-47.0 % Mean Corpuscular Volume 94.5 80.0-98.0 fL Mean Corpuscular Hemoglobin 31.9 27.0-33.0 pg Mean Corpuscular HGB Conc 33.8 31.0-35.0 g/dl Red Cell Distribution Width 13.1 11.0-16.0 % Platelet Count 229 160-400 X10*3/uL Mean Platelet Volume 9.0 9.4-12.3 fL Neutrophils Percent Auto 37.3 45-73 % Imm Gran Pct Auto 0.2 0.0-0.4 % Lymphocytes Percent Auto 49.0 20-40 % Monocytes Percent Auto 10.9 2-11 % Eosinophils Percent Auto 1.6 0-4 % Basophils Percent Auto 1.0 0-2 % NRBC Pct Auto 0.0 0.0-0.2 /100WBC Neutrophils Absolute Auto 1.9 2.0-8.3 x10*3/u L Imm Gran Abs Auto 0.01 0.00-0.03 X10*3/uL Lymphocytes Absolute Auto 2.5 1.2-4.9 X10*3/u L Monocytes Absolute Auto 0.6 0.1-1.2 X10*3/uL Eosinophils Absolute Auto 0.1 0.0-0.4 X10*3/u L Basophils Absolute Auto 0.1 0.0-0.2 X10*3/uL NRBC Abs Auto 0.000 0.0-0.012 X10*3/uL Comprehensive [place]. Panel Fa st Reviewed date:12/27/2023 11:19:28 AM Interpretation: Performing Lab:[address] [address] Notes/Report: Sodium 140 135-145 mmol/L Potassium 5.6 3.3-5.1 mmol/L Chloride 106 96-108 mmol/L Carbon Dioxide 28 22-29 mmol/L Anion Gap 12 12-20 Blood Urea Nitrogen 14 9-16 mg/dL Creatinine 0.77 0.5-1.4 mg/dL Estimated Glomerular Filt Rate > 60 NOTE: For -[place] individuals, multiply the result by 1.210. Chronic Kidney Disease: Estimated GFR < 60 mL/min/1.73m2 Severe Kidney Disease: Estimated GFR < 15 mL/min/1.73m2 Glucose Fasting 96 60-99 mg/dL Calcium 10.1 8.4-10.2 mg/dL Bilirubin Total 0.3 0.0-1.0 mg/dL Aspartate Amino Transferase 17 5-31 U/L Alanine Aminotransferase 16 0-31 U/L Total Protein 6.9 6.5-8.0 g/dL Albumin Level 4.3 3.5-5.0 g/dL Alkaline Phosphatase 59 39-117 U/L Lipid Panel Reviewed date:12/27/2023 11:19:28 AM Interpretation: Performing Lab:[address] [place] [address] Notes/Report: Triglycerides 61 <150 mg/dL Desirable Triglyceride: less than 150 mg/dL Borderline High Triglyceride 150-199 mg/dL High Triglyceride: 200-499 mg/dL Very High Triglyceride: greater than or equal to 5OO mg/dL Cholesterol 205 <200 mg/dL Desirable Cholesterol: less than 200 mg/dL Borderline High Cholesterol: 200-239 mg/dL High Cholesterol: greater than 239 mg/dL LDL Cholesterol Calculated 115 <100 mg/dL Desirable LDL: less than 100 mg/dL Near Optimal/Above Optimal LDL: 110-129 mg/dL Borderline High LDL: 130-159 mg/dL High LDL: 160-189 mg/dL Very High LDL: greater than or equal to 190 mg/dL HDL Cholesterol 78 >40 mg/dL Desirable HDL: greater than 40 mg/dL Note: This HDL assay may give artificially low results in patients with liver disease. MM tomosynthesis screening B I Reviewed date:02/25/2024 06:03:25 AM Interpretation: Performing Lab: Notes/Report: [facility] [address] [place] [address] Mammography Report Signed Patient: Nilda Huitron MR#: [id number] : 1970 Acct:[id number] Age/Sex: 53 / F ADM Date: 02/04/24 Loc: HO.MAMMO Attending Dr: Kathryn ADORNOPMONICA Ordering Physician: Kathryn Blood Results: 1Negative Date of Service: 02/04/24 Follow Up: 1 Year From [facility] Mammogram Procedure(s): MM tomosynthesis screening BI Accession Number(s): [id number] cc: Faheem Palomo MD; Kathryn Blood EXAMINATION: MM SCREENING DIGITAL BREAST TOMOSYNTHESIS, BILATERAL CLINICAL INFORMATION: Screening. Asymptomatic. COMPARISON: Mammography: Comparison is made with available priors TECHNIQUE: Digital breast mammography with tomosynthesis is performed in both the craniocaudal and mediolateral oblique views along with computer-aided detection (CAD). FINDINGS: The breasts are heterogeneously dense, which may obscure small masses (ACR BI-RADS breast composition Category c). There are no significant masses, abnormal calcifications, or other abnormalities. MM/MM tomosynthesis screening BI IMPRESSION: No mammographic evidence of malignancy. ASSESSMENT: BI-RADS BI-RADS 1 - Negative RECOMMENDATION: Routine annual mammography screening. 1 year F/U This examination should not preclude the clinical evaluation of a suspicious palpable abnormality. This patient's information was entered into a reminder system with a target due date for their next mammogram. 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 [address] Mammography Report Signed Patient: Nilda Huitron MR#: [id number] : 1970 Acct:[id number] Age/Sex: 53 / F ADM Date: 02/04/24 Loc: HO.MAMMO Attending Dr: Kathryn SIERRA Ordering Physician: Kathryn Blood Results: 1Negative Date of Service: 02/04/24 Follow Up: 1 Year From [facility] Mammogram Procedure(s): MM tomosynthesis screening BI Accession Number(s): [id number] cc: Faheem Palomo MD; Kathryn Blood EXAMINATION: MM SCREENING DIGITAL BREAST TOMOSYNTHESIS, BILATERAL CLINICAL INFORMATION: Screening. Asymptomatic. COMPARISON: Mammography: Compari son is made with available priors TECHNIQUE: Digital breast mammography with tomosynthesis is performed in both the craniocaudal and mediolateral oblique views along with computer-aided detection (CAD). FINDINGS: The breasts are heterogeneously dense, which may obscure small masses (ACR BI-RADS breast composition Category c). There are no significant masses, abnormal calcifications, or other abnormalities. MM/MM tomosynthesis screening BI IMPRESSION: No mammographic evidence of malignancy. ASSESSMENT: BI-RADS BI-RADS 1 - Negative RECOMMENDATION: Routine annual mammography screening. 1 year F/U This examination jennifer uld not preclude the clinical evaluation of a suspicious palpable abnormality. This patient's information was entered into a reminder system with a target due date for their next mammogram. Electronically maria eugenia d by: Thi Espinoza DO 02/19/2024 09:21 AM EDT Dictated By: Thi Espinoza DO Signed By: <Electronically signed by Thi Espinoza DO in OV> 02/19/24 0921 DD/ 1600 TD/TT: 02/04/24 1612 Textile Machine Mechanic: Reason For Referral No Information Medications Medication SIG (Take, Route, Frequency, Duration) [...] nonsmoker Additional Findings: Tobacco Non-User Aggressive non-smoker Alcohol Screen Question Answer Notes Did you have a drink containing alcohol in the p ast year? No Points 0 Interpretation Negative Problems Problem Type SNOMED Code ICD Code Onset Dates Problem Status W/U Status Risk Notes Problem [id number] Overweight (E66.3) Active confirmed She has gained 5 pounds since her last visit. She has become slightly overweight. We discussed diet and nutrition and a weight loss strategy today. Problem Vitamin D deficiency (82639907) Vitamin D deficiency, unspecified (E55.9) Active confirmed Her vitamin D level is 48. No change in her regimen was needed. Problem Family history of cancer (477775158) Family history of malignant neoplasm, unspecified (Z80.9) Active confirmed Her mother has a history of bladder cancer. The patient's urine has been unremarkabl e. 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 Her imaging has been normal. She is due for an MRI this month which has been scheduled. There is no sign of neoplasm at this time. Problem 461233098 History of appendectomy (Z90.49) Active confirmed Problem 721234755 History of tonsillectomy (Z90.89) Active confirmed Vital Signs Heart Rate 72 /min 07/04/2024 Temperature 98.3 degrees Fahrenheit 07/04/2024 Blood pressure diastolic 63 mm Hg 07/04/2024 Height 66 in 07/04/2024 Blood pressure systolic 127 mm Hg 07/04/2024 Weight 156 lbs 07/04/2024 BMI 25.18 kg/m2 07/04/2024 Encounters Encounter Location Date Provider Diagnosis Faheem Palomo III, MD [address] [place] [address] [address] [place] [address] 12/28/2023 Faheem Palomo Breast lobular neoplasia, right D05.01 ; Family history of malignant neoplasm, unspecified Z80.9 and Vitamin D deficiency, unspecified E55.9 Faheem Palomo III, MD [address] [place] [address] [address] [place] [address] 07/04/2024 Faheem Dewey Breast lobular neoplasia, right D05.01 ; Family history of malignant neoplasm, unspecified Z80.9 ; Vitamin D deficiency, unspecified E55.9 and Overweight E66.3 Assessments Encounter Date Diagnosis (ICD Code) Assessment Notes Treatment Notes Treatment Clinical Notes 12/28/2023 Family history of malignant neoplasm, unspecified (ICD-10 - Z80.9) Her mother has a history of bladder cancer. The patient's urine has been unremarkable. 12/28/2023 Breast lobular neoplasia, right (ICD-10 - D05.01) The breast exam is normal today. Her imaging has been normal. She is due for an MRI. There is no sign of neoplasm at this time. 07/04/2024 Family history of malignant neoplasm, unspecified (ICD-10 - Z80.9) Her mother has a history of bladder cancer. The patient's urine has been unremarkable. 07/04/2024 Breast lobular neoplasia, right (ICD-10 - D05.01) The breast exam is normal today. Her imaging has been normal. She is due for an MRI this month which has been scheduled. There is no sign of neoplasm at this time. 12/28/2023 Vitamin D deficiency, unspecified (ICD-10 - E55.9) Her vitamin D level is 48. No change in her regimen was needed. 07/04/2024 Vitamin D deficiency, unspecified (ICD-10 - E55.9) Her vitamin D level is 48. No change in her regimen was needed. 07/04/2024 Overweight (ICD-10 - E66.3) She has gained 5 pounds since her last visit. She has become slightly overweight. We discussed diet and nutrition and a weight loss strategy today. Plan Of Treatment Pending Test Test Name Order Date PROFILE, FASTING (COMPREHENSIVE METABOLI C) 06/29/2023 PROFILE, FASTING (COMPREHENSIVE METABOLI C) 09/22/2022 LIPID PANEL 09/22/2022 CBC w DIFF 09/22/2022 MRI BREAST BILATERAL 04/03/2016 MRI BREAST BILATERAL 09/20/2018 MRI BREAST BILATERAL 06/29/2023 MAMMOGRAM DIGITAL BILATERAL DIAGNO 06/29 VITAMIN D 25-OH TOTAL 09/22/2022 CBC WITH AUTO DIFF 06/29/2023 Lipid Panel 06/29/2023 Next Appt Details Provider Name:Faheem Palomo, 01/02/2025 03:30:00 PM, [address] [place] [address] , [address], [place], [address], Insurance Providers Payer Name Payer Address Payer Phone Subscriber Number Group Number Insured Name Patient Relationship to Insured Coverage Start Date Coverage End Date [employer] [address] [place], [place] [id number] [phone] [id number] Nilda Huitron Self - patient is the insured Medical (General) History Medical History History ICD Code lobular carcinoma in situ right breast 2 015 appendectomy age 12 tonsillectomy family history of gastrointestinal cance r and bladder cancer negative colonoscopy 2014 2 para 2 sulfa allergy menarche age 11, premenopausal tamoxifen therapy for 5 years for chemop revention Surgical History Surgery Date(Month/Year) Apendix removed 1984 tonsils removed biopsy right breast 10/[address] Mily dan 06/2014 core biopsy right breast lesion 08/2014 excisional biopsy right breast-LCIS 11/14 14 No history Hospitalization History Reason Date(Month/Year) No history
--- OUTSIDE RECORDS SUMMARY | 2024-07-28 18:31 | XMS_ITS | Clinical Summary ---
Author Organization [facility] Address [address] [place] [address] Care Team Providers Care Food Porter Name Role Phone Pcp, No Primary Care Provider Unavailabl e Active Problems Problem Noted Date Diagnosed Date Subacromial bursitis of left shoulder joint 08/26 Social History Tobacco Use Types Packs/Day Years Used Date Smoking Tobacco: Never Assessed Sex and Gender Information Value Date Recorded Sex Assigned at Not on file Gender Identity Not on file Sexual Orientation Not on file Plan of Treatment Health Maintenance Due Date Last Done Comments Hepatitis C Virus Screening 1970 HIV Screening 1982 DTaP/Tdap/Td Vaccines (1 - Tdap) 02/25/1988 Hepatitis B Vaccines (1 of 3 - 19+ 3-dose series) 02/25/1988 Pap Smear (Ages 21-65) 1990 Mammogram 2009 Colonoscopy 2014 Pneumococcal Vaccines 50+ (1 of 1 - PCV) 2019 Zoster (Shingles) Vaccine (1 of 2) 2019 Influenza Vaccine 12/27/2023 COVID-19 Vaccine ( - 2023-2 5 season) 2024 Pneumococcal Vaccine: Pediat lisa (0-5 Years) and At-Risk Patients (6 to 49 Years) Aged Out No longer eligible b ased on patient's age to complete this topic Care Teams Food Porter Relationship Specialty Start Date End Date Pcp, No PCP - General General Medicine 08/27/23
--- OUTSIDE RECORDS SUMMARY | 2024-07-28 18:31 | XMS_ITS | Encounter Summary ---
Author Organization [employer] Address [address] [place] [address] [address] [place] [address] Care Team Providers Care Holistic Health Practitioner Name Role Phone Unavailable Primary Care Provider Unavailabl e Encounter Details Date Type Department Care Team (Latest Contact Info) Description 02/08/[address] [facility] Dental, Provider, DDS Social History [...] Description 12/31/2024 8:00 AM EDT Office Visit [facility] [address] [place], [place] [id number] Evie Munoz [address] [place], [place] [phone] documented as of this encounter Visit Diagnoses Not on filedocumented in this encounter
--- OUTSIDE RECORDS SUMMARY | 2024-07-28 18:32 | XMS_ITS | Patient Health Record ---
Author Organization [facility] Address [address] [place] [address] Care Team Providers Care Dinkey Engine Firer/Fireman Name Role Phone KATHRYN DURAND M.D Primary Care Provider Radha Dominguez Unavailable [phone] Allergies Allergen (clinical drug ingredient) Drug/Non Drug [...] 5.0 PROTEIN Neg GLUCOSE Neg BLOOD Neg [id number] IGP No Culture 30 Plus Reviewed date:02/25/2024 06:25:21 PM Interpretation: Performing Lab:[facility], [address], [address], [place], Phone - [phone], Director - [facility] Notes/Report: Clinical Information:[id number] Dates / Results....02/02/21 NIL, Neg HPV Other..............Post Menopausal No. of containers..01 ThinPrep Vial DIAGNOSIS: NEGATIVE FOR IN TRAEPITHELIAL LESION OR MALIGNANCY. Specimen adequacy: Satisfactory for evaluation. Endocervical and/or squamous metaplastic cells (endocervical component) are present. Clinician provided ICD10: Z0 1.419 Performed by: Cecelia Stevens ytotechnologist ([facility]) . . Note: The Pap [...] Janel Agosto, [address], [place], Phone - [phone], Director - [facility] Notes/Report: Clinical Information:[id number] Dates / Results....02/02/21 NIL, Neg HPV Other..............Post Menopausal No. of containers..01 ThinPrep Vial Reason For Referral No Information Medications Medication [...] (Standard) Question Answer Notes Tobacco use: Nonsmoker Problems Problem Type SNOMED Code ICD Code Onset Dates Problem Status W/U Status Risk Notes Problem Menopause (483879574) Menopausal and female climacteric states (N95.1) Active confirmed Problem Lobular carcinoma in situ of right breast (646372750254671) 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 Problem Perimenopausal disorder (159180349) Other specified menopausal and perimenopausal disorders (N95.8) Active confirmed Problem History of carcinoma in situ of breast (7574749899203601 8) Personal history of in-situ neoplasm of breast (Z86.000) Active confirmed Vital Signs Temperature 97.4 degrees Fahrenheit 02/20/2024 Blood pressure diastolic 68 mm Hg 02/20/2024 Height 66.5 in 02/20/2024 Blood pressure systolic 104 mm Hg 02/20/2024 Weight 150 lbs 02/20/2024 BMI 23.85 kg/m2 02/20/2024 Encounters Encounter Location Date Provider Diagnosis [facility] [place] [address] [place] [address] 02/20/2024 Radha Anderson Encounter for gynecological examination (general) (routine) without abnormal findings Z01.419 ; Encounter for screening mammogram for malignant neoplasm of breast Z12.31 ; Unspecified lump in the right breast, lower outer quadrant N63.13 ; Lobular carcinoma in situ of right breast D05.01 ; Family history of malignant neoplasm of breast Z80.3 and Dense breasts, unspecified R92.30 [facility] [place] [address] [facility] [address] [place] [address] 03/03/2024 Radha Anderson Unspecified lump in the right breast, lower outer quadrant N63.13 Assessments Encounter Date Diagnosis (ICD Code) Assessment Notes Treatment Notes Treatment Clinical Notes Section Notes 02/20/2024 Encounter for gynecological examination (general) (routine) without abnormal findings (ICD-10 - Z01.419) PAP TEST WITH HPV TYPING WAS OBTAINED. 03/03/2024 Unspecified lump in the right breast, lower outer quadrant (ICD-10 - N63.13) 02/20/2024 Encounter for screening mammogram for malignant [...] 3D MAMMOGRAMS WERE RECOMMENDED. Plan Of Treatment Pending Test Test Name Order Date Ultrasound : Breast, right 09/03/2014 Mammogram, right breast 09/03/2014 MAMMOGRAM, SCREENING 09/11/2014 Ultrasound : Breast Core Biopsy 09/10/19 15 FSH 10/27/2016 THIN PREP,HPV,FE IF HPV+ (>29YR)(SCRN) 10/26/2015 MM Digital Mammo Screening 02/08/2022 MM Digital Mammo Screening 02/12/2023 MM Digital Mammo Screening 02/20/2024 Right Breast Ultrasound 03/03/2024 Left Breast Ultrasound 02/20/2024 Next Appt Details Provider Name:Radha giron, 03/18/2025 03:00:00 PM, [address], [address], [place], [address], Insurance Providers Payer Name Payer Address Payer Phone Subscriber Number Group Number Insured Name Patient Relationship to Insured Coverage Start Date Coverage End Date [employer] [address] [place] [address] [id number] MARY GILBERT Self - patient is the insured Medical (General) History Medical History History ICD Code Lobular carcinoma in situ of right breas t D05.01 Menopausal and female climacteric states N95.1 Inconclusive mammogram R92.2 Personal history of in-situ neoplasm of breast Z86.000 Other specified menopausal and perimenop ausal disorders N95.8 Mammographic heterogeneous density, bila teral breasts R92.333 Surgical History Surgery Date(Month/Year) Appendectomy Tonsillectomy [facility] R breast bx (LCIS) 2014 Hospitalization History Reason Date(Month/Year) See Surgical Hx 2 Vaginal Deliveries
--- OUTSIDE RECORDS SUMMARY | 2024-07-28 18:32 | XMS_ITS ---
Author Organization Faheem Palomo III, MD Address [address] [place] [address] [place] [address] Care Team Providers Care Barber Instructor Name Role Phone KATHRYN DURAND NP Primary Care Provider Unavail able Faheem Palomo Unavailable [phone] FRANCINE LEWIS MD Unavailable Unavailable Allergies Allergen [...] Date Provider Diagnosis Faheem Palomo III, MD [address] [place] [address] [place] [address] 12/28/2023 Faheem Palomo Breast lobular neoplasia, right [...] Follow Up: 6 Months, Reason: ov Provider Name:Faehem Palomo, 01/02/2025 03:30:[address], [address], Progress Notes * Nilda GILBERT MDOB :1970 (53 yo F)Acc No.[id number]:12/28/2023 Progress Notes Patient:?Neeraj Gilbert Provider:?Faheem Palomo MD :1970???Age:53 Y???Sex:Female D ate:12/28/2023 Address:[address] [place], [place] [phone] Pcp:KATHRYN DURAND NP Subjective: * Chief Complaints: * ???History of breast cancer * HPI: ???COVID-19 Screening:? She returns for ongoing surveillance every 6 months for history of breast cancer. She is up-to-date with the MRI of the breast on the mammogram. She has contacted breast self-examination with negative results. Her examination today was unremarkable. Surveillance will continue. No change in her regimen was necessary. ?Questions?Have you experienced fever, chills, cough, sore throat, shortness of breath, difficulty breathing, muscle aches, loss of taste or smell??No ?Have you been exposed to the virus within the last 10 days??No ?Have you travelled internationally in the last 10 days??No ?Have you been exposed to COVID-19 in the past??No * ROS:?General/Constitutional:?pain?only normal aches and pains.?Chills?denies.?Fatigue?admits.?Fever?denies.?ENT:?Decreased hearing?denies.?Respiratory:?Cough?denies.?Cardiovascular:?Chest pain with exertion?denies.?Dyspnea on exertion?denies.?Shortness of breath?denies.?Gastrointestinal:?Constipation?occasional.?Decreased appetite?denies.?Diarrhea?denies.?Heartburn?occasional.?Nausea?denies.?Rectal bleeding?denies.?Vomiting?denies.?Hematology:?bruising?denies.?petechiae?denies.?Swollen glands?none have been noted.?Genitourinary:?Frequent urination?denies.?Musculoskeletal:?Muscle aches?denies.?Painful joints?denies.?Sciatica?denies.?Weakness?denies.?Skin:?Itching?denies.?Rash?denies.?Skin lesion(s)?denies.?Neurologic:?Difficulty speaking?denies.?Dizziness?denies.?Headache?denies.?Low back pain?denies.?Psychiatric:?Depressed mood?denies.? * Medical History:? * Surgical History:?Apendix re moved 1984tonsils removed biopsy right breast 10/2014negative screening colonoscopy Dr. Garcia 06/2014core biopsy right breast lesion 08/2014excisional biopsy right breast-LCIS 10/2014 * Hospitalization/Major Diagno stic Procedure:?Denies Past Hospitalization * Family History:?Father: dece ased, colon cancer, pancreatic cancer, diagnosed with Cancer.?Mother: , Urothelial carcinoma with bilateral hydroureter, aortic valve replacement with porcine valve, hyponatremia, left hydroureter, bilateral cataract extraction, hyperthryrodism, atrial fribrillation, multinodular goiter, diagnosed with HTN, Cancer, Hyperlipidemia.?1 brother(s) . 1 son(s) , 1 daughter(s) - healthy. .? Her brother is an insulin-dependent diabetic. Her children are healthy and well. A maternal grandmother had cancer of the pancreas her mother had bladder cancer. Her father had colon and pancreatic cancer. * Social History:?Tobacco Use:?Tobacco Use/Smoking?Patient is a?nonsmoker ?Additional Findings: Tobacco Non-User?Aggressive non-smoker ???She has been to Annalise for 20 years. They have a son and a daughter who are healthy and well. She is not a Orthod[employer] and is not currently . * Medications:?TakingVitamin [...] Allergyno[Allergies Verified] Objective: * Vitals:?Ht: 66, Wt: 151, BMI :24.37, BP: 128/76, HR: 77, Temp: 98.8, Wt-k.49. * Examination: ???General Examination: ?GENERAL APPEARANCE:?pleasant, well nourished, well developed, in no acute distress, calm and relaxed , woman.?HEAD:?atraumatic, normocephalic.?EYES:?eomi, perrla, anicteric, conjugate.?EARS:?normal.?NOSE:?septum intact.?ORAL CAVITY:?normal, unremarkable.?NECK/THYROID:?no jugular venous distention, no carotid bruit, thyroid normal.?LYMPH NODES:?no enlarged lymph nodes,spleen normal.?SKIN:?no suspicious lesions, anicteric.?HEART:?no clicks, gallops, murmurs, or rubs, regular rhythm, S1, S2 normal, no s3, or vascular bruits.?LUNGS:?clear to auscultation .?BREASTS:?no masses palpable bilaterally , no dimpling , no discharge , no drainage , nontender , symmetrical, All scars healed.?ABDOMEN:?bowel sounds normal, no ascites, no organomegaly, no mass.?RECTAL EXAM:?not examined.?MUSCULOSKELETAL:?extremities unremarkable, no clubbing, cyanosis or edema.?PERIPHERAL PULSES:?normal.?NEUROLOGIC:?alert and oriented, cranial nerves 2-12 grossly intact, deep tendon reflexes 2+ symmetrical, motor strength normal upper and lower extremities, sensory exam intact.?PSYCH:?alert, oriented.? Assessment: * Assessment: 1.?Family history of maligna nt neoplasm, unspecified - Z80.9, Her mother has a history of bladder cancer. The patient's urine has been unremarkable.?2.?Breast lobular neoplasia, right - D05.01, The breast exam is normal today. Her imaging has been normal. She is due for an MRI. There is no sign of neoplasm at this time.?3.?Vitamin D deficiency, unspecified - E55.9, Her vitamin D level is 48. No change in her regimen was needed.? Plan: * Treatment: * Procedure Codes:? * Follow Up:?6 Months (Reason: ov) * Images: * Sign off status: Completed true * Provider:?Faheem Palomo MD Date:?06/2023 Generated for Printi ng/Faxing/eTransmitting on:?07/28/2024 06:32 PM EST History and Physical Notes * HPI (History of Present Illness) Category Sub-Category Detail Notes COVID-19 Screening Questions Have you had any new onset fever, chills, cough, congestion, sore throat, shortness of breath, muscle aches?: No Have you been exposed to the virus withi n the last 10 days?: No Have you travelled internationally in [facility] last 10 days?: No Have you been [...]
--- OUTSIDE RECORDS SUMMARY | 2024-07-28 18:32 | XMS_ITS | Clinical Summary ---
Author Organization [facility] Address [address] [place] [address] [address] [place] [address] Care Team Providers Care Engineering Manager Electronics Name Role Phone Unavailable Primary Care Provider Unavailabl e Allergies Active Allergy Reactions Criticality Noted Date Comments Epinephrine Unknown 07/17/2013 Lidocaine 07/17/2013 Nickel 07/17/2014 Sulfa Antibiotics Rash Low 09/22/2022 Medications doxycycline (Vibramycin) 100 MG capsule daily. Active Encounters Date Type Department Care Team Description 06/30/2024 8:00 AM EST Office Visit [address] [address] Evie Munoz from Last 3 Months Social History Tobacco Use Types Packs/Day Years Used Date Smoking Tobacco: Never Smokeless Tobacco: Never Tobacco Cessation:Counseling Given: Not Answered Alcohol Use Standard Drinks/Week Comments Defer 0 (1 standard drink = 0.6 oz pur e alcohol) Comments Unknown Sex and Gender Information Value Date Recorded Sex Assigned at Female 03/27/2022 10:23 AM EDT Legal Sex Female 10:23 AM EDT Gender Identity Female 03/27/2022 10:23 AM EDT Sexual Orientation Straight 03/27/2022 10 :23 AM EDT Last Filed Vital Signs Vital Sign Reading Time Taken Comments Blood Pressure 140/70 06/30/2024 8:09 AM EST Pulse 78 06/30/2024 8:09 AM EST Temperature - - Respiratory Rate - - Oxygen Saturation - - Inhaled Oxygen Concentration - - Weight - - Height - - Body Mass Index - - Plan of Treatment Upcoming Encounters Date Type Department Care Team (Late st Contact Info) Description 12/31/2024 8:00 AM EDT Office Visit [address] [address] Evie Munoz [address] [place] [address] Health Maintenance Due Date Last Done Comments CT Colonography 1969 Colonoscopy 1969 Colorectal Cancer Screening 1969 Depression Screening 1969 FIT DNA/Cologuard 1969 FIT 1969 FOBT 1969 HIV Screening 1969 SDOH Screening 1969 Sigmoidoscopy 1969 Alcohol/Substance Use Screening 1981 Hepatitis C Screening 1987 DTaP/Tdap/Td Vaccines (1 - Tdap) 02/25/1988 Hepatitis B Vaccines (1 of 3 - 19+ 3-dose series) 02/25/1988 Pap Smear 1990 Cervical Cancer Screening 1999 HPV/Cotest 1999 Mammogram 2009 Pneumococcal Vaccine: 50+ Years (1 of 1 - PCV) 2019 Zoster Vaccines (1 of 2) 2019 Dental Oral Exam 07/09/2023 01/05/2023, , 08/23/2018, Additional history exists COVID-19 Vaccine ( season) 2024 11/05/2020, 10/15/2020 Influenza Vaccine (#1) 2024 Dental X-Ray: Bitewings 12/27/2024 12/27/19 24, 01/19/2023, 01/05/2023, Additional history exists Dental Prophylaxis 12/29/2024 06/30/2024, 0 12/27/2023, 01/16/2023, Additional history exists Tobacco Screening 06/30/2025 06/30/2024 Dental X-Ray: Full Mouth 01/06/2026 01/05/2023 RSV Patients and Patients Aged 60 years or older (1 - 1-dose 75+ series) 02/25/2044 HIB Vaccines Aged Out No longer eligi ble based on patient's age to complete this topic HPV Vaccines Aged Out No longer eligi ble based on patient's age to complete this topic Hepatitis A Vaccines Aged Out No long er eligible based on patient's age to complete this topic IPV Vaccines Aged Out No longer eligi ble based on patient's age to complete this topic Meningococcal Vaccine Aged Out No ofelia malachi eligible based on patient's age to complete this topic RSV under 20 months Aged Out No longe r eligible based on patient's age to complete this topic Rotavirus Vaccines Aged Out No longer eligible based on patient's age to complete this topic Procedures Procedure Name Priority Date/Time Associated Diagnosis Comments PROPHYLAXIS - ADULT Routine 06/30/2024 8 :00 AM EST BITEWINGS - 4 RADIOGRAPHIC IMAGES Routine 12/27/2023 3:00 PM EDT INTRAORAL - COMPLETE SERIES OF RADIOGRAPHIC IMAGES Routine 01/05/2023 9:00 AM EDT PERIODIC ORAL EVALUATION - ESTABLISHED PATIENT Routine 01/05/2023 9:00 AM EDT from Last 3 Months or Most Recently Relevant to Health Maintenance Insurance DENTAL - [facility] [place] [id number]
--- OUTSIDE RECORDS SUMMARY | 2024-07-28 18:32 | XMS_ITS ---
Author Organization [facility] Address [address] [place] [address] Care Team Providers Care Brick Mason Name Role Phone KATHRYN DURAND M.D Primary Care Provider Radha Dominguez [phone] REASON FOR VISIT LAST BONE DENSITY Encounters Encounter Location Date Provider Diagnosis [facility] [address] [place] [address] 05/30/2023 Radha Anderson Plan Of Treatment Next Appt Details Provider Name:Radha giron, 03/18/2025 03:00:00 PM, [address], [address], [place], [address], Progress Notes * JS SALDANA MICHELEDOB:0 1970 (53 yo F)Acc No.[id number]:05/30/2023 Patient:?ARA GILBERT MARIA ALEJANDRA :1970???Age:53 Y???Sex:Female Address:[address] [place] [address], , [place], [address] * true * Date:? Generated for Nishanti livia/Mary Ellen/eTransmitting on:?07/28/2024 06:32 PM EST
--- OUTSIDE RECORDS SUMMARY | 2024-07-28 18:32 | XMS_ITS ---
Author Organization [facility] Address [address] [place] [address] Care Team Providers Care Textile Slitting Machine Operator Name Role Phone KATHRYN DURAND M.D Primary Care Provider Luiz Anderson Radhaharriet Salcido [phone] Encounters Encounter Location Date Provider Diagnosis [facility] [address] [place] [address] 03/03/2024 Radha Anderson Unspecified lump in the right breast, lower outer quadrant N63.13 Assessments Encounter Date Diagnosis (ICD Code) Assessment Notes Treatment Notes Treatment Clinical Notes Section Notes 03/03/2024 Unspecified lump in the right breast, lower outer quadrant (ICD-10 - N63.13) Plan Of Treatment Pending Test Test Name Order Date Right Breast Ultrasound 03/03/2024 Next Appt Details Provider Name:Radha giron, 03/18/2025 03:00:00 PM, [address] [place] [address], [address], [place], [address], Progress Notes * JS SALDANA MICHELEDOB:0 1970 (54 yo F)Acc No.[id number]:03/03/2024 Patient:?SLOAN GILBERT :1970???Age:54 Y???Sex:Female Address:[address] [place] [address], , [place], [address] Subjective: * Chief Complaints: * ??? * Medical History:? * Surgical History:? * Hospitalization/Major Diagno stic Procedure:? * Medications:? Objective: * Vitals:? * Physical Examination:? Assessment: * Assessment: 1.?Unspecified lump in the r ight breast, lower outer quadrant - N63.13??? Plan: * Treatment: * Procedure Codes:? * true * Date:? Generated for Anton bhakta/Mary Ellen/Behzad on:?07/28/2024 06:32 PM EST
--- OUTSIDE RECORDS SUMMARY | 2024-07-28 18:32 | XMS_ITS ---
Author Name [facility] Organization Unknown Problems Problem Status Onset Date Problem Type Date of Resoluti on Source Subacromial bursitis of left shoulder joint active 2023-09-08 ProblemAct CCT
--- OUTSIDE RECORDS SUMMARY | 2024-07-28 18:33 | XMS_ITS ---
Author Organization Faheem Palomo III, MD Address [address] [place] [address] [place] [address] Care Team Providers Care Hand Cooper Helper Name Role Phone KATHRYN DURAND NP Primary Care Provider Unavail able Faheem Palomo Unavailable [phone] DEBBIE LEWIS, FRANCINE Unavailable Unavailable Allergies Allergen (clinical drug ingredient) Drug/Non Drug Allergy documented on EMR Reaction Allergy Type Onset Date Status sulfacetamide Sulfacetamide rash Drug Allergy Active EPINEPHrine Unknown Drug Allergy Activ e REASON FOR VISIT History of Lobular carcinoma in situright breast Medications Medication SIG (Take, Route, Frequency, Duration) [...] Tobacco Non-User Aggressive non-smoker Vital Signs Temperature 98.3 degrees Fahrenheit 06/29/19 24 Blood pressure systolic 110 mm Hg 06/29/19 24 Blood pressure diastolic 70 mm Hg 024 Heart Rate 103 /min 06/29/2023 Height 66 in 06/29/2023 Weight 147 lbs 06/29/2023 BMI 23.72 kg/m2 06/29/2023 Encounters Encounter Location Date Provider Diagnosis Faheem Palomo III, MD [address] [place] [address] [place] [address] 06/29/2023 Faheem Palomo Breast lobular neoplasia, right D05.01 ; Overweight E66.3 and Vitamin D deficiency, unspecified E55.9 Assessments Encounter Date Diagnosis (ICD Code) Assessment Notes Treatment Notes Treatment Clinical Notes 06/29/2023 Breast lobular neoplasia, right (ICD-10 - D05.01) The breast exam is normal today. Her imaging has been normal. She is due for an MRI. There is no sign of neoplasm at this time. 06/29/2023 Overweight (ICD-10 - E66.3) Her body mass index is now 23.7 and this problem has resolved. 06/29/2023 Vitamin D deficiency, unspecified (ICD-10 - E55.9) Her vitamin D level is 48. No change in her regimen was needed. Plan Of Treatment Medication Medication Name Sig Start Date Stop Date Notes Vitamin D 2000 UNIT 1 capsule Orally Once a day Doxycycline Hyclate 100 MG 1 capsule Orally Once a day Pending Test Test Name Order Date PROFILE, FASTING (COMPREHENSIVE METABOLI C) 06/29/2023 MRI BREAST BILATERAL 06/29/2023 MAMMOGRAM DIGITAL BILATERAL DIAGNO 06/29 CBC WITH AUTO DIFF 06/29/2023 Lipid Panel 06/29/2023 Next Appt Details Follow Up: 6 Months, Reason: OV Provider Name:Faheem Palomo, 01/02/2025 03:30:00 PM, [address] [place] [address] [address], [place], [address], Progress Notes * Nilda HUITRON MDOB :1970 (53 yo F)Acc No.[id number]:06/29/2023 Progress Notes Patient:?Crystal NixNeeraj Provider:?Faheem Palomo MD :1970???Age:53 Y???Sex:Female D ate:06/29/2023 Address:[address] [place] [address] [id number] Pcp:KATHRYN DURAND NP Subjective: * Chief Complaints: * ???History of Lobular carcin brandon in situright breast * HPI: ???COVID-19 Screening:?Questions?Have you experienced fever, chills, cough, sore throat, shortness of breath, difficulty breathing, muscle aches, loss of taste or smell??No ?Have you been exposed to the virus within the last 10 days??No ?Have you travelled internationally in the last 10 days??No ?Have you been exposed to COVID-19 in the past??No ? She returns for ongoing surveillance because of a history of LCIS in the right breast and a strong family history of breast cancer and other malignancies. She has been compliant with breast self-examination with negative results. She is due for her annual MRI of the breast which has been ordered. Her examination today showed no sign of a new primary or relapse. Blood work was reviewed and was unremarkable. Her vitamin D level is normal. * ROS:?General/Constitutional:?pain?only normal aches and pains.?Chills?denies.?Fatigue?admits.?Fever?denies.?ENT:?Decreased hearing?denies.?Respiratory:?Cough?denies.?Cardiovascular:?Chest pain with exertion?denies.?Dyspnea on exertion?denies.?Shortness of breath?denies.?Gastrointestinal:?Constipation?occasional.?Decreased appetite?denies.?Diarrhea?denies.?Heartburn?denies.?Nausea?denies.?Rectal bleeding?denies.?Vomiting?denies.?Hematology:?bruising?denies.?petechiae?denies.?Swollen glands?none have been noted.?Genitourinary:?Frequent urination?denies.?Musculoskeletal:?Muscle aches?denies.?Painful [...] atrial fribrillation, multinodular goiter, diagnosed with Cancer, Hyperlipidemia, HTN.?1 brother(s) . 1 son(s) , 1 daughter(s) [...] Caodaism and is not currently . * Medications:?TakingVitamin [...] Allergyno[Allergies Verified] Objective: * Vitals:?Ht: 66, Wt: 147, BMI :23.72, BP: 110/70, HR: 103, Temp: 98.3, Wt-k.68. * ???Past Orders: ???Lab:Comprehensive Met. Josh tamara (Order Date - 06/28/2023) (Collection Date - 06/28/2023) ? Value Reference Range ?Sodium 141 135-145 - mmo l/L ?Bilirubin Total 0.5 0.0- 1.0 - mg/dL ?Aspartate Amino Transferase 14 5-31 - U/L ?Alanine Aminotransferase 13 0-31 - U/L ?Total Protein 6.9 6.5-8. 0 - g/dL ?Albumin Level 4.3 3.5-5. 0 - g/dL ?Alkaline Phosphatase 53 39-117 - U/L ?Potassium 4.5 3.3-5.1 - mmol/L ?Chloride 105 96-108 - mm ol/L ?Carbon Dioxide 30 H 22-29 - mmol/L ?Anion Gap 11 L 12-20 - ?Blood Urea Nitrogen 11 9-16 - mg/dL ?Creatinine 0.77 0.5-1.4 - mg/dL ?Estimated Glomerular Filt Rate > 60 - ?Glucose Random 88 60-11 5 - mg/dL ?Calcium 9.8 8.4-10.2 - m g/dL ???Lab:Vitamin D 25-OH Total (Order Date - 06/28/2023) (Collection Date - 06/28/2023) ? Value Reference Range ?Vitamin D 25-OH Total 48.5 >30 - ng/mL * Examination: ???General Examination: ?GENERAL APPEARANCE:?pleasant, well [...] discharge , no drainage , nontender , symmetrical , scar on RIGHT.?ABDOMEN:?bowel sounds normal, no ascites, no organomegaly, no mass.?RECTAL EXAM:?not examined.?MUSCULOSKELETAL:?extremities unremarkable, no clubbing, cyanosis or edema.?PERIPHERAL PULSES:?normal.?NEUROLOGIC:?alert and oriented, cranial nerves 2-12 grossly intact, deep tendon reflexes 2+ symmetrical, motor strength normal upper and lower extremities, sensory exam intact.?PSYCH:?alert, oriented , thought process logical, goal directed , speech clear , mood/affect full range , judgement and insight good , good eye contact , cooperative with exam , cognitive function intact.? Assessment: * Assessment: 1.?Breast lobular neoplasia, right - D05.01 (Primary), The breast exam is normal today. Her imaging has been normal. She is due for an MRI. There is no sign of neoplasm at this time.?2. Overweight - E66.3, Her body mass index is now 23.7 and this problem has resolved.?3.?Vitamin D deficiency, unspecified - E55.9, Her vitamin D level is 48. No change in her regimen was needed.? Plan: * Treatment: 2.?Overweight?LAB: PROFILE, FASTING (COMPREHENSIVE METABOLIC) ?LAB: CBC WITH AUTO DIFF ?LAB: Lipid Panel 3.?Vitamin D deficiency, uns pecified?LAB: PROFILE, FASTING (COMPREHENSIVE METABOLIC) ?LAB: CBC WITH AUTO DIFF ?LAB: Lipid Panel * Procedure Codes:? * Follow Up:?6 Months (Reason: OV) * Images: * Sign off status: Completed true * Provider:?Faheem Palomo MD Date:?06/2023 Generated for Nishanti livia/Mary Ellen/eTransmitting on:?07/28/2024 06:32 PM EST History and Physical Notes * HPI (History of Present Illness) Category Sub-Category Detail Notes COVID-19 Screening Questions Have you had any new onset fever, chills, cough, congestion, sore throat, shortness of breath, muscle aches?: No Have you been exposed to the virus withi n the last 10 days?: No Have you travelled internationally in [facility] last 10 days?: No Have you been [...] discharge , no drainage , nontender , symmetrical , scar on RIGHT MUSCULOSKELETAL: extremities unremark able, no clubbing, cyanosis or edema LYMPH NODES: no enlarged lymph no lazaro,spleen normal RECTAL EXAM: not examined PSYCH: alert, oriented , th ought process logical, goal directed , speech clear , mood/affect full range , judgement and insight good , good eye contact , cooperative with exam , cognitive function intact ORAL CAVITY: normal, unremarkable
== END 2024-07-28 15:41 | disposition home or self-care (01) ==
LOC: HO.MRI 15:40
PROVIDERS: PCP Nurse Practitioner Family; Visit Provider Surgery
DX: D05.01 Lobular carcinoma in situ of right breast (principal); Z91.89 Other specified personal risk factors, not elsewhere classified
CPT/HCPCS: 77049; A9585

== ENCOUNTER → 2024-07-28 15:40 | Outpatient (BNV) | payer OTHER, SELFPAY | PROVIDERS: PCP Nurse Practitioner Family; Visit Provider Internal Medicine | DX: Z86.000 Personal history of in-situ neoplasm of breast (principal) | CPT/HCPCS: 77049 ==

== ENCOUNTER 2024-11-04 15:43 | Outpatient (AMB) | payer OTHER, SELFPAY ==
--- NOTE | 2024-11-04 15:46 | MHC.OFFVIS ---
Vital Signs 11/04/24 15:53 Height 5 ft 7 in Weight 151 lb 4 oz BMI 23.7 BP 138/80 Blood Pressure Location Lt brachial Position Sitting Pulse 64 Intake Visit Reasons: 6 month breast exam Intake Note: Patient is seen in office for 6 month follow up visit, breast exam. 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 Ceja returning today for high risk breast cancer examination. She has a strong family history of colon cancer and genetic testing on 08/16/2011 revealed no clinically significant mutations or variants of unknown significance. Updated testing on 11/13/2018 revealed no deleterious mutations and no mutations of unknown significance. She previously underwent a right breast excision of a papilloma on 11/19/2014. Final pathology revealed lobular carcinoma in-situ arising from a complex sclerosing lesion. She was placed on a high risk screening protocol including yearly mammogram and MRIs. She was evaluated by Dr. Palomo and placed on tamoxifen but was later discontinued due to hot flashes and memory loss. She restarted in July 2017, 3 times weekly and completed the meds on 12/27/2019. She underwent MR guided biopsy on 05/10/2017 for a masslike enhancement in the right breast which revealed fibroadenomatoid changes. Her most recent mammogram of 02/04/2024 revealed no mammographic evidence of malignancy (BI-RADS 1). Repeat mammography in 1 year was recommended. Breast MRI performed on 07/28/2024 revealed no MR specific evidence of malignancy (BI-RADS 1 left breast, BI-RADS 2 right breast). Routine follow-up in 1 year is recommended (BI-RADS 2). Currently she feels well and denies any ongoing breast symptoms. [facility] Surgical History H/O colonoscopy History of tonsillectomy History of right breast biopsy History of appendectomy Family History Father Colon cancer Cancer of pancreas Mother Bladder cancer HTN (hypertension) High cholesterol H/O aortic valve replacement Maternal Grandmother Cancer of pancreas Paternal Grandmother No problems noted. 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 Cognitive needs: No Hearing needs: No Vision needs: No Review of Systems Const All systems reviewed & are unremarkable except as noted in HPI and below Physical Exam Vital Signs: Last Vital Signs Pulse 64 11/04/24 15:53 BP 138/80 11/04/24 15:53 BMI result Body Mass Index 23.7 Const General: cooperative, comfortable, no acute distress, alert and awake Nutritional Appearance: average body habitus Orientation/consciousness: patient oriented x3 Limitations: no limitations Neck Neck: Yes normal visual inspection and Yes no lymphadenopathy Chest Other: Left breast: No skin change, no nipple retraction, no nipple discharge, no palpable mass, no enlarged lymph nodes. Right breast: No skin change, no nipple retraction, no nipple discharge, no palpable mass, no enlarged lymph nodes . Well-healed transverse scar at the 9 o'clock position of the right breast. Mild fibrocystic changes bilaterally. Resp Effort & Inspection: normal respiratory effort Skin General skin exam: no rashes or lesions noted and dry skin Neuro Other: Mobility Assessment: 1. 3 meter assessment time (seconds): 5 2. Gait observations: Normal balance and gait General: patient oriented x3 Extrem General: Yes no clubbing, cyanosis or edema Assessment & Plan Assessment & Plan (1) Lobular carcinoma in situ (LCIS) of breast: Comment: Right Code(s): D05.00 - Lobular carcinoma in situ of unspecified breast Category: Medical Qualifiers: Laterality: right Qualified Code(s): D05.01 - Lobular carcinoma in situ of right breast (2) At high risk for breast cancer: Code(s): Z91.89 - Other specified personal risk factors, not elsewhere classified Category: Medical Plan 54-year-old female with history of lobular carcinoma in situ of the right breast status post lumpectomy performed on 11/19/2014. Patient is being followed on the high risk breast cancer screening protocol. Her latest mammogram of 02/04/2024 revealed no mammographic evidence of malignancy (BI-RADS 1). Her Tyrer-Cuzick remaining lifetime risk of breast cancer was calculated at 52%. Her most recent mammogram dated 02/04/2024 revealed no mammographic evidence of malignancy (BI-RADS 1). Breast MRI performed on 07/28/2024 also revealed no MR specific evidence of malignancy. Repeat MRI in 1 year is recommended. Examination today revealed no suspicious findings in either breast. I recommended follow-up examination in 1 year. Welcome to call sooner for any new concerns. Coding Level of Care Code Est Pt Level 3 (77791) Complex EM visit Add On G2211 Diagnoses Lobular carcinoma in situ (LCIS) of right breast D05.01 Laterality: right At high risk for breast cancer Z91.89
[2024-11-04 15:53] VITALS: BP 138/80; PULSE 64; BMI 23.7
--- OUTSIDE RECORDS SUMMARY | 2024-11-04 18:45 | XMS_ITS | Patient Health Record ---
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 Name Role Phone KIZZY BELL, KATHRYN Primary Care Provider Unavail able Faheem Palomo Unavailable [phone] DEBBIE LEWIS, FRANCINE Unavailable Unavailable Allergies Allergen (clinical drug ingredient) Drug/Non Drug Allergy documented on EMR Reaction Allergy Type Onset Date Status sulfacetamide Sulfacetamide rash Drug Allergy Active EPINEPHrine Unknown Drug Allergy Activ e Results Component Value Reference Range Notes Complete Blood Count Auto Di ff Reviewed date:12/27/2023 11:19:28 AM Interpretation: Performing Lab:[facility], [address] [place] [id number] Notes/Report: White Blood Count 5.1 4.8-10.8 X10*3/uL [...] NRBC Abs Auto 0.000 0.0-0.012 X10*3/uL Comprehensive Eckerty. Panel Fa st Reviewed date:12/27/2023 11:19:28 AM Interpretation: Performing Lab:[address] [address] Notes/Report: Sodium 140 135-145 mmol/L Potassium 5.6 3.3-5.1 mmol/L Chloride 106 96-108 mmol/L Carbon Dioxide 28 22-29 mmol/L Anion Gap 12 12-20 Blood Urea Nitrogen 14 9-16 mg/dL Creatinine 0.77 0.5-1.4 mg/dL Estimated Glomerular Filt Rate > 60 NOTE: For -Iraqi individuals, multiply the result by 1.210. Chronic [...] Panel Reviewed date:12/27/2023 11:19:28 AM Interpretation: Performing Lab:[address] [place] [address] Notes/Report: Triglycerides 61 <150 mg/dL Desirable Triglyceride: [...] date:02/25/2024 06:03:25 AM Interpretation: Performing Lab: Notes/Report: [facility] [address] [place] [address] Mammography Report Signed Patient: Nilda Huitron MR#: [id number] : 1970 Acct:[id number] Age/Sex: 53 / F ADM Date: 02/04/24 Loc: HO.MAMMO Attending Dr: Kathryn ADORNOPMONICA Ordering Physician: Kathryn Blood Results: 1Negative Date of Service: 02/04/24 Follow Up: 1 Year From [facility] Mammogram Procedure(s): MM tomosynthesis screening BI Accession Number(s): [id number] cc: Faheem Palomo MD; Kathryn Blood EXAMINATION: [...] 02/19/24 0921 DD/ 1600 TD/TT: 02/04/24 1612 Chemical Engineering Intern: [place] [facility] [address] [place] [address] Mammography Report Signed Patient: Nilda Huitron MR#: [id number] : 1970 Acct:[id number] Age/Sex: 53 / F ADM Date: 02/04/24 Loc: HO.MAMMO Attending Dr: Kathryn SIERRA Ordering Physician: Kathryn Blood Results: 1Negative Date of Service: 02/04/24 Follow Up: 1 Year From [facility] Mammogram Procedure(s): MM tomosynthesis screening BI Accession Number(s): [id number] cc: Faheem Palomo MD; Kathryn Blood EXAMINATION: [...] Thi Espinoza DO 02/19/2024 09:21 AM EDT RP Dictated By: Thi Espinoza DO Signed By: <Electronically signed by Thi Espinoza DO in OV> 02/19/24 0921 DD/ 1600 TD/TT: 02/04/24 1612 Chemical Engineering Intern: MR breast BI wo/w con Reviewed date:08/02/2024 05:00:33 AM Interpretation: Performing Lab: Notes/Report: [address] [address] Magnetic Resonance Report Signed Patient: Nilda Huitron MR#: [id number] : 1970 Acct:[id number] Age/Sex: 54 / F ADM Date: 07/28/24 Loc: HO.MRI Attending Dr: Kathryn Odell MD Ordering Physician: Kathryn Odell MD Date of Service: 07/28/24 Procedure(s): MR breast BI wo/w con Accession Number(s): [id number] cc: Faheem Palomo MD; Kathryn Blood [facility]-; Kathryn Odell MD EXAMINATION: MR BREAST WITHOUT AND WITH CONTRAST, BILATERAL CLINICAL INFORMATION: High risk screening. Personal history of right breast LCIS post excision and 2016.. Benign right MRI guided core needle biopsy in 2017. COMPARISON: Mammogram and ultrasound February, breast MRI May 30, 2022 May 09, 2021. TECHNIQUE: MR imaging of the breast was performed using T1, T2 and fat saturated techniques. Dynamic multiphase imaging was also performed after administration of intravenous gadolinium contrast agent. Computer generated 3-D reconstruction was performed. FINDINGS: There is heterogeneous fibroglandular breast tissue with moderate background enhancement. LEFT BREAST: No suspicious enhancing masses or areas of nonmass enhancement. No internal mammary or axillary adenopathy. RIGHT BREAST: No suspicious enhancing masses or areas of nonmass enhancement. Artifact from marker clip from previous needle core biopsy. No internal mammary or axillary adenopathy. Limited views of the chest and abdomen are unremarkable. MR/MR breast BI wo/w con IMPRESSION: No MRI evidence of malignancy bilateral breasts. ASSESSMENT: LEFT BREAST: BI-RADS 1-Negative RIGHT BREAST: BI-RADS 2 benign RECOMMENDATIONS: Yearly screening mammography. Yearly screening MRI surveillance. 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 Personal history of right breast LCIS post excision and 2016.. Benign right MRI guided core needle biopsy in 2017. COMPARISON: Mammogram and ultrasound February, breast MRI May 30, 2022 May 09, 2021. TECHNIQUE: MR imaging of the breast was performed using T1, T2 and fat saturated techniques. Dynamic multiphase imaging was also performed after administration of intravenous gadolinium contrast agent. Computer generated 3-D reconstruction was performed. FINDINGS: There is heterogeneo us fibroglandular breast tissue with moderate background enhancement. LEFT BREAST: No suspicious enhanc ing masses or areas of nonmass enhancement. No internal mammary or axillary adenopathy. RIGHT BREAST: No suspicious enhanc ing masses or areas of nonmass enhancement. Artifact from marker clip from previous needle core biopsy. No internal mammary or axillary adenopathy. Limited views of the chest and abdomen are unremarkable. MR/MR breast BI wo/w con IMPRESSION: No MRI evidence of malignancy bilateral breasts. ASSESSMENT: LEFT BREAST: BI-RADS 1-Negative RIGHT BREAST: BI-RAD S 2 benign RECOMMENDATIONS: Yearly screening mammography. Yearly screening MRI surveillance. Electronically maria eugenia d by: Thi Espinoza DO 07/31/2024 11:41 AM EST Dictated By: Thi Espinoza DO Signed By: <Electronically signed by Thi Espinoza DO in OV> 07/31/24 1141 DD/ 1555 TD/TT: 07/28/24 1630 Chemical Engineering Intern: Reason For Referral No Information Medications Medication [...] Problem Status W/U Status Risk Notes Problem 752138784 Overweight (E66.3) Active confirmed She has gained 5 pounds since her last visit. She has become slightly overweight. We discussed diet and nutrition and a weight loss strategy today. Problem Vitamin D deficiency (07198901) Vitamin D deficiency, unspecified (E55.9) Active confirmed Her vitamin D level is 48. No change in her regimen was needed. Problem Family history of malignant neoplasm, unspecified (Z80.9) Active confirmed Her mother has a history of bladder cancer. The patient's urine has been unremarkabl e. Problem Allergy to sulfonamides (85513878) Allergy status to sulfonamides status (Z88.2) Active confirmed Problem 018515166 Breast lobular neoplasia, right (D05.01) Active confirmed The breast exam is normal today. Her imaging has been normal. She is due for an MRI this month which has been scheduled. There is no sign of neoplasm at this time. Problem 490077256 History of appendectomy (Z90.49) Active confirmed Problem 658455722 History of tonsillectomy (Z90.89) Active confirmed Vital Signs Heart Rate 72 /min 07/04/2024 Temperature 98.3 degrees Fahrenheit 07/04/2024 Blood pressure diastolic 63 mm Hg 07/04/2024 Height 66 in 07/04/2024 Blood pressure systolic 127 mm Hg 07/04/2024 Weight 156 lbs 07/04/2024 BMI 25.18 kg/m2 07/04/2024 Encounters Encounter Location Date Provider Diagnosis Faheem Palomo III, MD [address] [place] [address] [address] [place] [address] 12/28/2023 Faheem Palomo Breast lobular neoplasia, right D05.01 ; Family history of malignant neoplasm, unspecified Z80.9 and Vitamin D deficiency, unspecified E55.9 Faheem Palomo III, MD [address] [place] [address] [address] [place] [address] 07/04/2024 Faheem Dewey Breast lobular neoplasia, right [...] CBC w DIFF 09/22/2022 MRI BREAST BILATERAL 06/29/2023 MRI BREAST BILATERAL 04/03/2016 MRI BREAST BILATERAL 09/20/2018 MAMMOGRAM DIGITAL BILATERAL DIAGNO 06/29 VITAMIN D 25-OH TOTAL 09/22/2022 CBC WITH AUTO DIFF 06/29/2023 Lipid Panel 06/29/2023 Next Appt Details Provider Name:Faheem Palomo, 01/02/2025 03:30:00 PM, [address] [place] [address] [address], [place], [address], Insurance Providers Payer Name Payer Address Payer Phone Subscriber Number Group Number Insured Name Patient Relationship to Insured Coverage Start Date Coverage End Date [employer] [address] [place], [place] [id number] Nilda Huitron Self - patient is the [...]
== END 2024-11-05 11:43 | disposition home or self-care (01) ==
LOC: HO.HGS 15:43
PROVIDERS: PCP Nurse Practitioner Family; Visit Provider Surgery
DX: D05.01 Lobular carcinoma in situ of right breast (principal); Z91.89 Other specified personal risk factors, not elsewhere classified
CPT/HCPCS: 99213

== ENCOUNTER 2025-02-09 15:35 | Outpatient (REF) | payer OTHER, SELFPAY ==
--- OUTSIDE RECORDS SUMMARY | 2023-12-28 11:00 | XMS_ITS ---
Author Organization Faheem Palomo III, MD Address [address] [place] [address] [place] [address] Care Team Providers Care History Professor Name Role Phone KATHRYN DURAND NP Primary Care Provider Unavail able Faheem Palomo Unavailable [phone] FRANCINE LEWIS MD Unavailable Unavailable Allergies Allergen (clinical drug ingredient) Drug/Non [...] Date Provider Diagnosis Faheem Palomo III, MD [address] [place] [address] [place] [address] 12/28/2023 Faheem Palomo Breast lobular neoplasia, right [...] Up: 6 Months, Reason: ov Provider Name:Faheem Palomo, 08/07/2025 02:30:[address], [address], Progress Notes * Nilda GILBERT MDOB :1970 (53 yo F)Acc No.[id number]:12/28/2023 Progress Notes Patient: Nilda Dominguez Provider: Magdaleno Palomo MD :1970 A ge:53 Y S ex:Female Date:12/28/2023 Address:[address] [place], [place] [phone] Pcp:KATHRYN DURAND NP Subjective: * Chief Complaints: [...] History: T obacco Use: T obacco Use/Smoking Octavio webber is a n onsmoker A dditional Findings: Tobacco Non-User A ggressive non-smoker S he has been to Danilo for 20 years. They have a son and a daughter who are healthy and well. She is not a [employer] and is not currently . * Medications: [...] Examination: G eneral Examination: GENERAL APPEARANCE: p kendal, well nourished, well developed, in no acute [...] 12/28/2023 Generated for Anton bhakta/Mary Ellen/Nonaitting on: 0 02/09/2025 08:57 PM EDT History and Physical Notes * HPI (History [...]
--- OUTSIDE RECORDS SUMMARY | 2024-07-04 11:00 | XMS_ITS ---
Author Organization Faheem Palomo III, MD Address [address] [place] [address] Care Team Providers Care Medical Observer Name Role Phone KIZZY BELL, KATHRYN Primary Care Provider Unavail able Faheem Palomo Unavailable [phone] DEBBIE LEWIS, FRANCINE Unavailable Unavailable Allergies Allergen [...] Problem Status W/U Status Risk Notes Problem [id number] Overweight (E66.3) Active confirmed She has gained [...] Date Provider Diagnosis Faheem Palomo III, MD [address] [place] [address] [address] [place] [address] 07/04/2024 Faheem Dewey Breast lobular neoplasia, right D05.01 ; Family [...] months, Reason: OV, Routine check-up Provider Name:Faheem Palomo, 08/07/2025 02:30:00 PM, [address] [place] [address] [address], [place], [address], Progress Notes * Nilda HUITRON MDOB :1970 (54 yo F)Acc No.[id number]:07/04/2024 Progress Notes Patient: Darcie HANSONPIERCE Nilda Darcie Provider: Magdaleno Palomo MD :1970 A ge:54 Y S ex:Female Date:07/04/2024 Address:[address] [place], [place] [address], [id number] Pcp:KATHRYN DURAND NP Subjective: * Chief Complaints: [...] healthy and well. She is not a [employer] and is not currently . * Medications: [...] Date: 0 07/04/2024 Generated for Anton bhakta/Mary Ellen/Nonaitting on: 0 [...]
--- OUTSIDE RECORDS SUMMARY | 2025-01-02 13:30 | XMS_ITS ---
Author Organization Faheem Palomo III, MD Address [address] [place] [address] [address] [facility] [facility] [place] [address] Care Team Providers Care Rn Surgical Pcu Name Role Phone KIZZY BELL, KATHRYN Primary Care Provider Unavail able Faheem Palomo Unavailable [phone] DEBBIE LEWIS, FRANCINE Salcido Unavailable REASON FOR VISIT Follow up Encounters Encounter Location Date Provider Diagnosis Faheem Palomo III, MD [address] [place] [address] [place] [address] 01/02/2025 Faheem Palomo Plan Of Treatment Next Appt Details Provider Name:Faheem Palomo, 08/07/2025 02:30:00 PM, [address] [place] [address] [place], [address], Progress Notes * Nilda HUITRON MDOB :1970 (54 yo F)Acc No.[id number]:01/02/2025 Progress Notes Patient: Nilda RODRÍGUEZ Provider: Magdaleno Palomo MD :1970 A ge:54 Y S ex:Female Date:01/02/2025 Address:[address] [place], [place] [address]G[place] [id number] Pcp:KATHRYN DURAND NP Subjective: * Chief Complaints: [...] 01/02/2025 Generated for Anton bhakta/Mary Ellen/Behzad on: 0 02/09/2025 08:56 PM EDT
--- OUTSIDE RECORDS SUMMARY | 2025-02-06 11:45 | XMS_ITS ---
Author Organization Faheem Palomo III, MD Address [address] [place] [place] [address] Care Team Providers Care Electronic News Gathering Editor Name Role Phone KIZZY BELL, KATHRYN Primary Care Provider Unavail able Faheem Palomo Unavailable [phone] DEBBIE LEWIS, FRANCINE Unavailable Unavailable Allergies Allergen [...] Problem Status W/U Status Risk Notes Problem [id number] Lobular carcinoma in situ (LCIS) of right [...] Date Provider Diagnosis Faheem Palomo III, MD [address] [place] [address] [address] [place] [phone] 02/06/2025 Faheem Palomo Vitamin D deficiency , unspecified E55.9 ; [...] 6 Months, Reason: OV Provider Name:Faheem Palomo, 08/07/2025 02:30:00 PM, [address] [place] [address] [address], [place], [id number], Progress Notes * Nilda HUITRON MDOB :1970 (54 yo F)Acc No.[id number]:02/06/2025 Progress Notes Patient: Darcie JEB Nilda NIX M Provider: Magdaleno Palomo MD :1970 A ge:54 Y S ex:Female Date:02/06/2025 Address:[address] [place] [address] FREDIS [phone] Pcp:KATHRYN DURAND NP Subjective: * Chief Complaints: [...] healthy and well. She is not a Amish and is not currently . * Medications: [...] 02/06/2025 Generated for Anton bhakta/Mary Ellen/Nonaitting on: 0 [...]
--- NOTE | ~2025-02-09 | MM_ITS ---
EXAMINATION: MM SCREENING DIGITAL BREAST TOMOSYNTHESIS, BILATERAL CLINICAL INFORMATION: Screening. Asymptomatic. Personal history of right breast LCIS, status post excision in 2016. COMPARISON: Comparison made to multiple prior mammograms, most recent February 04, 2024, and most remote November 17, 2019. Breast MRI on July 28, 2024. TECHNIQUE: Digital breast tomosynthesis is performed in mediolateral oblique and craniocaudal views along with computer-aided detection (CAD). Synthesized 2D images are generated from the tomosynthesis. FINDINGS: BREAST COMPOSITION: The breasts are heterogeneously dense, which may obscure small masses (ACR BI-RADS breast composition Category c). RIGHT BREAST: Tissue marker from previous needle core biopsy. No significant masses, suspicious calcifications or other abnormalities are seen. LEFT BREAST: No significant masses, suspicious calcifications or other abnormalities are seen. MM/MM tomosynthesis screening BI IMPRESSION: BILATERAL BREASTS: Benign, no mammographic evidence of malignancy. Normal interval follow-up is recommended in 12 months. ASSESSMENT: BI-RADS 2 - Benign Findings RECOMMENDATION: Routine annual mammography screening. FOLLOW-UP: 1 year F/U This examination should not preclude the clinical evaluation of a suspicious palpable abnormality. This patient's information was entered into a reminder system with a target due date for their next mammogram. Electronically signed by: Martinez Rueda MD 02/10/2025 06:38 PM EDT
--- OUTSIDE RECORDS SUMMARY | 2025-02-09 20:57 | XMS_ITS | Clinical Summary ---
Author Organization [facility] Address [address] [place] [address] Care Team Providers Care Real Estate Professional Name Role Phone Pcp, No Primary Care Provider Unavailabl e Active Problems Problem Noted Date Diagnosed Date Subacromial bursitis of left shoulder joint 08/26 Social History Tobacco Use Types Packs/Day Years Used Date Smoking Tobacco: Never Assessed Comments Unknown Sex and Gender Information Value Date Recorded Sex Assigned at Not on file Legal Sex Female 12:31 PM EDT Gender Identity Not on file Sexual Orientation Not on file Plan of Treatment Health Maintenance Due Date Last Done Comments Hepatitis C Virus Screening 1969 HIV Screening 1982 DTaP/Tdap/Td Vaccines (1 - Tdap) 02/25/1988 Hepatitis B Vaccines (1 of 3 - 19+ 3-dose series) 01/28 Pap Smear (Ages 21-65) 1990 Mammogram 2009 Colonoscopy 2014 Pneumococcal Vaccines 50+ (1 of 1 - PCV) 2019 Zoster (Shingles) Vaccine (1 of 2) 2019 Influenza Vaccine 12/26/2024 COVID-19 Vaccine ( - 2023- season) 2025 Insurance [employer] HMO Care Teams Real Estate Professional Relationship Specialty Start Date End Date Pcp, No PCP - General General Medicine 08/27/23
--- OUTSIDE RECORDS SUMMARY | 2025-02-09 20:57 | XMS_ITS | Encounter Summary ---
Author Organization [facility] Address [address] [place] [address] Phone Care Team Providers Care Bleacher Lard Name Role Phone Amy Awan MD Primary Care Provider Reason for Referral * Physical Therapy (Routine) - Closed Specialty Diagnoses / Procedures Referred By Contac t Referred To Contact Physical Therapy Diagnoses Encounter for rehabilitation System, Provider Not In, PhD [id number] [place] [address] Phone: tel: Referral ID Status Reason Start Date Expiration Date Visits Re quested Visits Authorized [id number] Closed 12/06/2017 12/06/2018 1 1 Encounter Details Date Type Department Care Team (Latest Contact Info) Description 12/06/2017 Transcribe Orders [facility] Rehabilitation Services [address] [place] [address] Amy Awan MD [address] [place] [address] [place] [address] Encounter for rehabilitation (Primary Dx) Social History Tobacco Use Types Packs/Day Years Used Date Smoking Tobacco: Never Assessed Comments Unknown Sex and Gender Information Value Date Recorded Sex Assigned at Not on file Legal Sex Female 9:36 PM EDT Gender Identity Not on file Sexual Orientation Not on file documented as of this encounter Plan of Treatment Scheduled Referrals Name Type Priority Associated Diagnoses Orde r Schedule Ambulatory referral to [facility] Physical Therapy Outpatient Referral Routine Encounter for rehabilitation Ordered: 12/06/2017 documented as of this encounter Visit Diagnoses Diagnosis Encounter for rehabilitation- Primary documented in this encounter Additional Health Concerns Infection Onset Date Last Indicated Resolved Time CoV-Risk 05/29/2023 05/29/2023 06/09/2023 1:22 AM EST documented as of this encounter Care Teams Bleacher Lard Relationship Specialty Start Date End Date Amy Awan MD [facility] [place] [address] PCP - General Internal Medicine 12/03/17 documented as of this encounter Additional Source Comments The information contained in this document represents components of the legal health record. It is not the complete legal health record.[facility]
--- OUTSIDE RECORDS SUMMARY | 2025-02-09 20:57 | XMS_ITS ---
Author Name [facility] Organization Unknown Problems Problem Status Onset Date Problem Type Date of Resoluti on Source Subacromial bursitis of left shoulder joint active 2023-09-08 ProblemAct HHCCT Encounters Encounter Type Encounter Reason Primary Diagnosis Location Date Ambulatory Bursitis of left shoulder Bursitis of left shoulder [place] 09/08/2023 Ambulatory Bursitis of left shoulder Bursitis of left shoulder [place] 09/08/2023 Care Team Organization Name Specialty Phone Email Start Date End Da [facility] [place] NO PCP Primary Care 09/10/2023 [place] 09/08/2023 08/13/2024 [place] 09/08/2023
--- OUTSIDE RECORDS SUMMARY | 2025-02-09 20:57 | XMS_ITS | Clinical Summary ---
Author Organization [facility] Address [address] [facility] [address] [place] [address] Phone Care Team Providers Care Color Buffer Name Role Phone Amy Awan MD Primary Care Provider Allergies Active Allergy Reactions Criticality Noted Date Comments Epinephrine Unknown 07/17/2013 Lidocaine 07/17/2013 Nickel 07/17/2014 Sulfa (Sulfonamide Antibiotics) Rash Low 08/27 Medications predniSONE (DELTASONE) 20 MG tablet Take 1 tablet (20 mg total) by mouth daily with breakfast. 5 tablet 06/01/2023 Active Active Problems No known active problems Immunizations No known immunizations Social History Tobacco Use Types Packs/Day Years Used Date Smoking Tobacco: Never Smokeless Tobacco: Never Tobacco Cessation:Counseling Given: Not Answered Education Answer Date Recorded Are you interested in more education? Not on efren e 09/22/2022 Are you concerned about learning? Not on file 09/22/2022 No 09/22/2022 No 09/22/2022 Digital Access Answer Date Recorded No 10/21/2022 No 10/21/2022 Reliable internet access at home? Not on file 10/21/2022 Device with a working camera? Not on file Comments Unknown Sex and Gender Information Value Date Recorded Sex Assigned at Not on file Legal Sex Female 9:36 PM EDT Gender Identity Not on file Sexual Orientation Not on file Last Filed Vital Signs Vital Sign Reading Time Taken Comments Blood Pressure 131/85 06/01/2023 10:57 AM EST Pulse 104 06/01/2023 10:57 AM EST Temperature 37.1 C (98.7 F) 06/01/2023 10:57 AM EST Respiratory Rate 16 06/01/2023 10:57 AM EST Oxygen Saturation 98% 06/01/2023 10:57 AM EST Inhaled Oxygen Concentration - - Weight 68 kg (150 lb) 06/01/2023 10:57 AM EST pe r pt Height - - Body Mass Index - - Plan of Treatment Health Maintenance Due Date Last Done Comments Adult Td,Tdap Booster 1970 LIPID PANEL 1969 DEPRESSION SCREENING 1981 HEPATITIS C SCREENING 1987 HIV ONE-TIME SCREENING (18-6 5 YEARS) 1987 PAP SMEAR 1990 MAMMOGRAM 2009 COLOGUARD 2014 COLONOSCOPY 2014 COLORECTAL CANCER SCREENING 2014 FIT TEST 2014 FOBT 2014 SIGMOIDOSCOPY 2014 VIRTUAL COLONOSCOPY 2014 PNEUMOCOCCAL VACCINES (50+ y ears) (1 of 1 - PCV) 2019 ZOSTER VACCINES (1 of 2) 2019 INFLUENZA VACCINE (#1) 2024 COVID-19 VACCINE (2 - 2024-2 6 season) 2025 11/05/2020 SMOKING STATUS SCREENING (On ce After 26 Yrs) Completed 06/01/2023 HEPATITIS A VACCINES Aged Out No long er eligible based on patient's age to complete this topic HIB VACCINES Aged Out No longer eligi ble based on patient's age to complete this topic MENINGOCOCCAL VACCINES (ACWY) Aged Out No longer eligible based on patient's age to complete this topic MENINGOCOCCAL VACCINES (B) Aged Out N o longer eligible based on patient's age to complete this topic Medical Devices Not on file Insurance [employer] PPO C[employer]NA PPO C[employer] PPO Member Subscriber Plan / Payer (Ef fective 2021-Present) Name:Nilda Benitez Relation to Subscriber:Self Name:Nilda Benitez Payer ID:[id number] ([facility]) Type:PPO Address: [place] [id number] CIGNA PPO CIG PPO CIGNA PPO Care Teams Color Buffer Relationship Specialty Start Date End Date Amy Awan MD [address] [place] [address] PCP - General Internal Medicine 12/03/17 Additional Source Comments The information contained in this document represents components of the legal health record. It is not the complete legal health record.[facility]
--- OUTSIDE RECORDS SUMMARY | 2025-02-09 20:57 | XMS_ITS | Clinical Summary ---
Author Organization [employer] Address [address] [place] [address] [address] [place] [address] Care Team Providers Care Unix Systems Administrator Name Role Phone Unavailable Primary Care Provider Unavailabl e Allergies Active Allergy Reactions Criticality Noted Date Comments Epinephrine Unknown 07/17/2013 Lidocaine 07/17/2013 Nickel 07/17/2014 Sulfa Antibiotics Rash Low 09/22/2022 Medications doxycycline (Vibramycin) 100 MG capsule daily. Active Active Problems No known active problems Encounters Date Type Department Care Team Description 01/09/[address] [facility] [address] [place] [address] Hailee Turk DDS Follow-up (Patient had a recovery complaint however the issue was resolved for patient was already on the schedule for their six month recall which was schedule back in June./) 12/31/2024 8:00 AM EDT Office Visit [facility] [address] [place] [address] Evie Munoz 12/30/2024 Travel 12/05/2024 1:00 PM EDT Office Visit [facility] [address] [place] [address] Hailee Turk DDS 11/19/2024 10:45 AM EDT Office Visit [facility] [address] [place] [address] Hailee Turk DDS 11/14/[address] [facility] [address] [place] [address] Hailee Turk DDS from Last 3 Months Social History Tobacco [...] Sign Reading Time Taken Comments Blood Pressure 110/68 12/31/2024 8:07 AM EDT Pulse 77 12/31/2024 8:07 AM EDT Temperature - - Respiratory Rate - - [...] Screening 1970 SDOH Screening 1970 Sigmoidoscopy 1969 Disability Screening 1969 Alcohol/Substance Use Screening 1981 Hepatitis C Screening 1987 DTaP/Tdap/Td Vaccines (1 - Tdap) 02/25/1988 Hepatitis B Vaccines (1 of 3 - 19+ 3-dose series) 02/25/1988 Pap Smear 1990 Cervical Cancer Screening 1999 HPV/Cotest 1999 Mammogram 2009 Pneumococcal Vaccine: 50+ Years (1 of 1 - PCV) 2019 Zoster Vaccines (1 of 2) 2019 Dental Oral Exam 07/09/2023 01/05/2023, , 08/23/2018, Additional history exists Dental X-Ray: Bitewings 12/27/2024 12/27/19 24, 01/19/2023, 01/05/2023, Additional history exists COVID-19 Vaccine (3 - 2024- season) 2025 11/05/2020, 10/15/2020 Influenza Vaccine (#1) 2025 Dental Prophylaxis 07/04/2025 12/31/2024, 0 06/30/2024, 12/27/2023, Additional history exists Tobacco Screening 12/31/2025 12/31/2024 Dental X-Ray: Full Mouth 01/06/2026 01/05/2023 RSV [...] patient's age to complete this topic Meningococcal B Vaccine Aged Out No l onger eligible based on patient's age to complete [...] Associated Diagnosis Comments PROPHYLAXIS - ADULT Routine 12/31/2024 8 :00 AM EDT 2 CROWN PREP Routine 12/05/2024 1:00 PM EDT 12 INTRAORAL - PERIAPICAL FIRST RADIOGRAPHIC IMAGE Routine 11/19/2024 10:45 AM EDT 12 DO RESIN-BASED COMPOSITE - 2 SURF, POSTERIOR Routine 11/19/2024 10:45 AM EDT 11 D RESIN-BASED COMPOSITE - 1 SURF, ANTERIOR Routine 11/19/2024 10:45 AM EDT BITEWINGS - 4 RADIOGRAPHIC IMAGES Routine 12/27/2023 3:00 PM EDT INTRAORAL - COMPLETE SERIES OF RADIOGRAPHIC IMAGES Routine 01/05/2023 9:00 AM EDT PERIODIC ORAL EVALUATION - ESTABLISHED PATIENT Routine 01/05/2023 9:00 AM EDT from Last 3 Months or Most Recently Relevant to Health Maintenance Insurance DENTAL - [facility] [place] [id number]
--- OUTSIDE RECORDS SUMMARY | 2025-02-09 20:57 | XMS_ITS | Encounter Summary ---
Author Organization [employer] Address [address] [facility] 7[address] [place] [address] Care Team Providers Care Cafeteria Manager Name Role Phone Unavailable Primary Care Provider Unavailabl e Encounter Details Date Type Department Care Team (Latest Contact Info) Description 02/28/[address] [facility] CONVERSIONS Dental, Provider, DDS Social History Tobacco Use Types Packs/Day Years Used Date Smoking Tobacco: Never Assessed Comments Unknown Sex and Gender Information Value Date Recorded Sex Assigned at Female 03/27/2022 10:23 AM EDT Legal Sex Female 10:23 AM EDT Gender Identity Female 03/27/2022 10:23 AM EDT Sexual Orientation Straight 03/27/2022 10 :23 AM EDT documented as of this encounter Plan of Treatment Not on file documented as of this encounter Visit Diagnoses Not on filedocumented in this encounter
--- OUTSIDE RECORDS SUMMARY | 2025-02-09 20:57 | XMS_ITS | Encounter Summary ---
Author Organization [facility] Address [address] [place] [address] Phone Care Team Providers Care Market Stall Vendor Name Role Phone mAy Awan MD Primary Care Provider Reason for Referral * Physical Therapy (Routine) - Closed Specialty Diagnoses / Procedures Referred By Contac t Referred To Contact Physical Therapy Diagnoses Encounter for rehabilitation System, Provider Not In, PhD [id number] [place] [address] Phone: tel: Referral ID Status Reason Start Date Expiration Date Visits Re quested Visits Authorized [id number] Closed 12/26/2017 12/25/2018 30 30 Encounter Details Date Type Department Care Team (Latest Contact Info) Description 12/05/2017 Transcribe Orders [facility] Rehabilitation [facility] [address] [place] [address] Branden Solis PA [address] [facility] [place] [address] Encounter for rehabilitation (Primary Dx) Social History [...] Diagnoses Orde r Schedule Ambulatory referral to [facility] Physical Therapy Outpatient Referral Routine Encounter for rehabilitation Ordered: 12/05/2017 documented as of this encounter Visit Diagnoses Diagnosis Encounter for rehabilitation- Primary documented in this encounter Additional Health Concerns Infection Onset Date Last Indicated Resolved Time CoV-Risk 05/29/2023 05/29/2023 06/09/2023 1:22 AM EST documented as of this encounter Care Teams Market Stall Vendor Relationship Specialty Start Date End Date Amy Awan MD [address] [place] [address] [place] [address] PCP - General Internal Medicine 12/03/17 documented as of this encounter Additional Source Comments The information contained in this document represents components of the legal health record. It is not the complete legal health record.[facility]
--- OUTSIDE RECORDS SUMMARY | 2025-02-09 20:57 | XMS_ITS | Encounter Summary ---
Author Organization [employer] Address [address] [facility] [address]t [place] [address] Care Team Providers Care Pest Control Technician Name Role Phone Unavailable Primary Care Provider Unavailabl e Encounter Details Date Type Department Care Team (Latest Contact Info) Description 02/08/2021 Abstract [facility] CONVERSIONS Dental, Provider, DDS Social History [...]
--- OUTSIDE RECORDS SUMMARY | 2025-02-09 20:57 | XMS_ITS | Patient Health Record ---
Author Organization Faheem Palomo III, MD Address [address] [facility] [place] [address] Care Team Providers Care Shell Trim Tool Setter Name Role Phone KATHRYN BLOOD NP Primary Care Provider Unavail able Faheem Palomo Unavailable [phone] FRANCINE LEWIS MD Unavailable Unavailable Allergies Allergen (clinical drug ingredient) Drug/Non Drug Allergy documented on EMR Reaction Allergy Type Onset Date Status sulfacetamide Sulfacetamide rash Drug Allergy Active EPINEPHrine Unknown Drug Allergy Activ e Results Component Value Reference Range Notes MR breast BI wo/w con Reviewed date:08/02/2024 05:00:33 AM Interpretation: Performing Lab: Notes/Report: [address] [address] Magnetic Resonance Report Signed Patient: Nilda Huitron MR#: [id number] : 1970 Acct:[id number] Age/Sex: 54 / F ADM Date: 07/28/24 Loc: HO.MRI Attending Dr: Kathryn Odell MD Ordering Physician: Kathryn Odell MD Date of Service: 07/28/24 Procedure(s): MR breast BI wo/w con Accession Number(s): [id number] cc: Faheem Palomo MD; Kathryn Blood [facility]-; Kathryn Odell MD EXAMINATION: MR [...] 07/31/24 1141 DD/ 1555 TD/TT: 07/28/24 1630 Notched Blade Loader: [place] [id number] Magnetic Resonance Report Signed Patient: Nilda Chávez MR#: [id number] : 1970 Acct:[id number] Age/Sex: 54 / F ADM Date: 07/28/24 Loc: HO.MRI Attending Dr: Kathryn Odell MD Ordering Physician: Kathryn Odell MD Date of Service: 07/28/24 Procedure(s): hetal ast BI wo/w con Accession Number(s): [id number] cc: Faheem Palomo MD; Kathryn Blood [facility]-; Kathryn Odell MD EXAMINATION: MR BREAST WITHOUT AN D WITH CONTRAST, BILATERAL CLINICAL INFORMATION: High risk screening. Personal history of right breast LCIS post excision and 2016.. Benign right MRI guided core needle biopsy in 2017. COMPARISON: Mammogram and ultras ound February, breast MRI May 30, 2022 Dece mber 2020. TECHNIQUE: MR imaging of the br east was performed using T1, T2 and fat saturated techniques. Dynamic multiphase imaging was also performed after administration of in travenous gadolinium contrast agent. Computer generated 3-D recons truction was performed. FINDINGS: There is heterogeneo us [...] of the chest and abdomen are unremarkable. M R/MR breast BI wo/w con IMPRESSION: No MRI evidence of m alignancy bilateral breasts. ASSESSMENT: LEFT BREAST: BI-RADS 1-Negative RIGHT BREAST: BI-RADS 2 benign RECOMMENDATIONS: Yearly screening mammography. Yearly screening MRI surveillance. Electronically maria eugenia d by: Thi Espinoza DO 07/31/2024 11:41 AM EST Dictated By: Thi Mata i, DO Signed By: <Chucky icallmyrtle signed by Thi Espinoza DO in OV> 07/31/24 1141 DD/ 1555 TD/TT: 07/28/24 1630 Notched Blade Loader: Reason For Referral No Information Medications Medication SIG (Take, Route, Fr equency, [...] Problem Status W/U Status Risk Notes Problem 518535291 Overweight (E66.3) Active confirmed She has gained 5 pounds since her last visit. She has become slightly overweight. We discussed diet and nutrition and a weight loss strategy today. Problem Vitamin D deficiency (62638335) Vitamin D deficiency, unspecified (E55.9) Active confirmed She will continue on her vitamin D supplementat ion. Problem Family history of cancer (213451540) Family history of malignant neoplasm, unspecified (Z80.9) Active confirmed Her mother has a history of bladder cancer. The patient's urine has been unremarkable . Problem Allergy to sulfonamides (42042509) Allergy status to sulfonamides status (Z88.2) Active confirmed Problem 551256148 History of appendectomy (Z90.49) Active confirmed Problem 081617637 History of tonsillectomy (Z90.89) Active confirmed Problem 698603715077107 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 She will continue breast self-examina tion as well as annual mammography an MRI. Vital Signs Heart Rate 72 /min 02/06/2025 Temperature 97.8 degrees Fahrenheit 02/06/2025 Blood pressure diastolic 66 mm Hg 02/06/2025 Height 66 in 02/06/2025 Blood pressure systolic 130 mm Hg 02/06/2025 Weight 150 lbs 02/06/2025 BMI 24.21 kg/m2 02/06/2025 Encounters Encounter Location Date Provider Diagnosis Faheem Palomo III, MD [address] [place] [address] [place] [address] 07/04/2024 Faheem Palomo Breast lobular neoplasia, right D05.01 ; Family history of malignant neoplasm, unspecified Z80.9 ; Vitamin D deficiency, unspecified E55.9 and Overweight E66.3 Faheem Palomo III, MD [address] [place] [address] [place] [address] 02/06/2025 Faheem Palomo Vitamin D deficiency , unspecified E55.9 ; Lobular carcinoma in situ (LCIS) of right breast D05.01 and Family history of malignant neoplasm, unspecified Z80.9 Assessments Encounter Date Diagnosis (ICD Code) Assessment Notes Treatment Notes Treatment Clinical Notes 07/04/2024 Family history of malignant neoplasm, unspecified [...] no sign of neoplasm at this time. 02/06/2025 Vitamin D deficiency, unspecified (ICD-10 - E55.9) She will continue on her vitamin D supplementation. 02/06/2025 Lobular carcinoma in situ (LCIS) of right breast (ICD-10 - D05.01) There is currently no sign of a new breast neoplasm. She will continue breast self-examination as well as annual mammography an MRI. 07/04/2024 Vitamin D deficiency, unspecified (ICD-10 - E55.9) Her vitamin D level is 48. No change in her regimen was needed. 02/06/2025 Family history of malignant neoplasm, unspecified (ICD-10 - Z80.9) Her mother has a history of bladder cancer. The patient's urine has been unremarkable. 07/04/2024 Overweight (ICD-10 - E66.3) She has gained 5 pounds since her last visit. She has become slightly overweight. We discussed diet and nutrition and a weight loss strategy today. Plan Of Treatment Pending Test Test Name Order Date PROFILE, FASTING (COMPREHENSIVE METABOLI C) 02/06/2025 PROFILE, FASTING (COMPREHENSIVE METABOLI C) 06/29/2023 PROFILE, FASTING (COMPREHENSIVE METABOLI C) 09/22/2022 LIPID PANEL 09/22/2022 CBC w DIFF 09/22/2022 CBC w DIFF 02/06/2025 MRI BREAST BILATERAL 06/29/2023 MRI BREAST BILATERAL 04/03/2016 MRI BREAST BILATERAL 09/20/2018 MAMMOGRAM DIGITAL BILATERAL DIAGNO 06/29 VITAMIN D 25-OH TOTAL 09/22/2022 CBC WITH AUTO DIFF 06/29/2023 Lipid Panel 02/06/2025 Lipid Panel 06/29/2023 Vitamin D 25-OH Total 02/06/2025 Next Appt Details Provider Name:Faheem Palomo, 08/07/2025 02:30:00 PM, [address] [place] [address] [facility] [address], Insurance Providers Payer Name Payer Address Payer Phone Subscriber Number Group Number Insured Name Patient Relationship to Insured Coverage Start Date Coverage End Date CASSANDRA GIBSON [address] KIM SPANN [id number] Nilda Huitron Self - patient is the insured Medical (General) History Medical History History ICD Code lobular carcinoma in situ right breast 2 015 appendectomy age 12 tonsillectomy family history of gastrointestinal cance r and bladder cancer negative colonoscopy 2014 2 para 2 sulfa allergy menarche age 11, premenopausal tamoxifen therapy for 5 years for chemop revention Surgical History Surgery Date(Month/Year) No history excisional biopsy right breast-LCIS 11/14 15 core biopsy right breast lesion 08/[address] Mily dan 06/2014 biopsy right breast 10/2014 tonsils removed Apendix removed 1983 Hospitalization History Reason Date(Month/Year) No history
--- OUTSIDE RECORDS SUMMARY | 2025-02-09 20:57 | XMS_ITS | Patient Health Record ---
Author Organization [facility] Address [address] [facility] [facility] [address] [place] [address] Care Team Providers Care Cardiac Nurse Practitioner Name Role Phone KATHRYN DURAND M.D Primary Care Provider Radha Dominguez Unavailable [phone] Allergies Allergen (clinical drug ingredient) Drug/Non Drug [...] 5.0 PROTEIN Neg GLUCOSE Neg BLOOD Neg [id number] IGP No Culture 30 Plus Reviewed date:02/25/2024 06:25:21 PM Interpretation: Performing Lab:[facility], [address], [address], [place], Phone - [phone], Director - [facility] Notes/Report: Clinical Information:[id number] Dates / Results....02/02/21 NIL, Neg HPV Other..............Post Menopausal No. of containers..01 ThinPrep Vial DIAGNOSIS: NEGATIVE FOR IN TRAEPITHELIAL LESION OR MALIGNANCY. Specimen adequacy: Satisfactory for evaluation. Endocervical and/or squamous metaplastic cells (endocervical component) are present. Clinician provided ICD10: Z0 1.419 Performed by: Cecelia Stevens ytotechnologist ([facility]) . . Note: The Pap [...] Janel Agosto, [address], [place], Phone - [phone], Director - [facility] Notes/Report: Clinical Information:[id number] Dates / Results....02/02/21 NIL, Neg HPV Other..............Post [...] Status W/U Status Risk Notes Problem Menopause (996566345) Menopausal and female climacteric states (N95.1) Active confirmed Problem Lobular carcinoma in situ of right breast (421718148112736) 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 Problem Perimenopausal disorder (115839060) Other specified menopausal and perimenopausal disorders (N95.8) Active confirmed Problem History of carcinoma in situ of breast (8599838084144125 8) Personal history of in-situ neoplasm of breast (Z86.000) Active confirmed Vital Signs Temperature 97.4 degrees Fahrenheit 02/20/2024 Blood pressure diastolic 68 mm Hg 02/20/2024 Height 66.5 in 02/20/2024 Blood pressure systolic 104 mm Hg 02/20/2024 Weight 150 lbs 02/20/2024 BMI 23.85 kg/m2 02/20/2024 Encounters Encounter Location Date Provider Diagnosis [facility] [place] [address] [address] [place] [address] 02/20/2024 Radha Anderson Encounter for gynecological examination (general) (routine) without abnormal findings Z01.419 ; Encounter for screening mammogram for malignant neoplasm of breast Z12.31 ; Unspecified lump in the right breast, lower outer quadrant N63.13 ; Lobular carcinoma in situ of right breast D05.01 ; Family history of malignant neoplasm of breast Z80.3 and Dense breasts, unspecified R92.30 [facility] [place] [address] [address] [facility] [address] [place] [address] 03/03/2024 Radha Anderson Unspecified lump in the [...] Provider Name:Radha giron, 03/18/2025 03:00:00 PM, [address], [address], [place], [address], Insurance Providers Payer Name Payer Address Payer Phone Subscriber Number Group Number Insured Name Patient Relationship to Insured Coverage Start Date Coverage End Date [employer] [address] [place] [address] [id number] MARY GILBERT Self - patient is the insured Medical (General) History Medical History History ICD Code Lobular carcinoma in situ of right breas t D05.01 Menopausal and female climacteric states N95.1 Inconclusive mammogram R92.2 Personal history of in-situ neoplasm of breast Z86.000 Other specified menopausal and perimenop ausal disorders N95.8 Mammographic heterogeneous density, bila teral breasts R92.333 Surgical History Surgery Date(Month/Year) Appendectomy Tonsillectomy [place] R breast bx (LCIS) 2014 Hospitalization History Reason Date(Month/Year) See Surgical Hx 2 Vaginal Deliveries
--- OUTSIDE RECORDS SUMMARY | 2025-02-09 20:57 | XMS_ITS | Encounter Summary ---
Author Organization [facility] Address [address] [place] [address] Phone Care Team Providers Care Diet Aid Name Role Phone Amy Awan MD Primary Care Provider Reason for Referral * Physical Therapy (Elective) - Closed Specialty Diagnoses / Procedures Referred By Contac t Referred To Contact Physical Therapy Diagnoses Encounter for rehabilitation Low back pain M54.5 Procedures Evaluate & Treat Marc Blood NP Phone: tel: fax: [address] [address] Phone: tel: Referral ID Status Reason Start Date Expiration Date Visits Re quested Visits Authorized [id number] Closed 12/29/2020 05/27/2021 15 15 Encounter Details Date Type Department Care Team (Latest Contact Info) Description 11/16/2020 Transcribe Orders [facility] [address] [place] [phone] Marc Blood NP [facility] [facility] [place] [address] Encounter for rehabilitation (Primary Dx) Social History [...] Outpatient Referral Routine Encounter for rehabilitation Ordered: 11/16/2020 documented as of this encounter Visit Diagnoses Diagnosis Encounter for rehabilitation- Primary documented in this encounter Additional Health Concerns Infection Onset Date Last Indicated Resolved Time CoV-Risk 05/29/2023 05/29/2023 06/09/2023 1:22 AM EST documented as of this encounter Care Teams Diet Aid Relationship Specialty Start Date End Date Amy Awan MD [address] [place] [address] PCP - General Internal Medicine 12/03/17 documented as of this encounter Additional Source Comments The information contained in this document represents components of the legal health record. It is not the complete legal health record.[facility]
== END 2025-02-09 15:36 | disposition home or self-care (01) ==
LOC: HO.MAMMO 15:35
PROVIDERS: PCP Nurse Practitioner Family; Visit Provider Nurse Practitioner Family
DX: Z12.31 Encounter for screening mammogram for malignant neoplasm of breast (principal)
CPT/HCPCS: 77063; 77067

== ENCOUNTER → 2025-02-09 15:45 | Outpatient (BNV) | payer OTHER, SELFPAY | PROVIDERS: PCP Nurse Practitioner Family; Visit Provider Radiology Body Imaging | DX: Z12.31 Encounter for screening mammogram for malignant neoplasm of breast (principal) | CPT/HCPCS: 77063; 77067 ==

== ENCOUNTER 2025-03-20 15:39 | Outpatient (AMB) | payer OTHER, SELFPAY ==
--- OUTSIDE RECORDS SUMMARY | 2023-12-28 11:00 | XMS_ITS ---
Author Organization Faheem Palomo III, MD Address [address] [place] [address] Care Team Providers Care Transformer Shop Supervisor Name Role Phone KATHRYN DURAND NP Primary Care Provider Unavail able Dr. Faheem Palomo III Unavailable [phone] DEBBIE LEWIS, FRANCINE Salcido Unavailable Allergies Allergen [...] Date Provider Diagnosis Faheem Palomo III, MD [address] [place] [address] [place] [address] 12/28/2023 Faheem Palomo Breast lobular neoplasia, right [...] Provider Name:Faheem Palomo , 08/07/2025 02:30:00 PM, [address] [place] [address], [address], Progress Notes * Nilda HUITRON MDOB :1970 (53 yo F)Acc No.[id number]:12/28/2023 Progress Notes Patient: Nilda Dominguez Provider: Magdaleno Palomo MD :1970 A ge:53 Y S ex:Female Date:12/28/2023 Address:[address] [place], [place] [phone] Pcp:KATHRYN DURAND NP Subjective: * Chief Complaints: [...] 12/28/2023 Generated for Anton bhakta/Mary Ellen/Nonaitting on: 05:00 PM EDT History and Physical Notes * [...]
--- OUTSIDE RECORDS SUMMARY | 2024-07-04 11:00 | XMS_ITS ---
Author Organization Faheem Palomo III, MD Address [address] [place] [address] Care Team Providers Care Library Paraprofessional Name Role Phone KATHRYN DURAND NP Primary [...] Problem Status W/U Status Risk Notes Problem [id number] Overweight (E66.3) Active confirmed She has gained [...] Date Provider Diagnosis Faheem Palomo III, MD [address] [place] [address] [address] [place] [phone] 07/04/2024 Faheem Palomo Breast lobular neoplasia, right [...] Provider Name:Faheem Palomo , 08/07/2025 02:30:00 PM, [address] [place] [address] [address], [place], [phone], Progress Notes * Nilda HUITRON MDOB :1970 (54 yo F)Acc No.[id number]:07/04/2024 Progress Notes Patient: Darcie RUSS Nilda NIX Darcie Provider: Magdaleno Palomo MD :1970 A ge:54 Y S ex:Female Date:07/04/2024 Address:[address] [place] [address], [place], [id number] Pcp:KATHRYN DURAND NP Subjective: * Chief Complaints: [...] healthy and well. She is not a [employer] and is not currently . * Medications: [...] 07/04/2024 Generated for Anton bhakta/Mary Ellen/Behzad on: 05:00 PM EDT History and Physical [...]
--- OUTSIDE RECORDS SUMMARY | 2025-01-02 13:30 | XMS_ITS ---
Author Organization Faheem Palomo III, MD Address [address] [place] [address] [address] [place] [address] Care Team Providers Care Die Technician Name Role Phone KIZZY BELL, KATHRYN Primary Care Provider Unavail able Dr. Faheem Palomo III Unavailable DEBBIE LEWIS, FRANCINE Salcido Unavailable REASON FOR VISIT Follow up Encounters Encounter Location Date Provider Diagnosis Faheem Palomo III, MD [address] [place] [address] [place] [address] 01/02/2025 Faheem Palomo Plan Of Treatment Next Appt Details Provider Name:Faheem Palomo , 08/07/2025 02:30:00 PM, [address] [place] [address] [place], [address], Progress Notes * Nilda HUITRON MDOB :1970 (55 yo F)Acc No.[id number]:01/02/2025 Progress Notes Patient: Nilda RODRÍGUEZ Provider: Magdaleno Palomo MD :1970 A ge:54 Y S ex:Female Date:01/02/2025 Address:[address] [place] [address] [facility] [id number] Pcp:KATHRYN DURAND NP Subjective: * Chief Complaints: [...] 01/02/2025 Generated for Anton bhakta/Mary Ellen/Behzad on: 05:00 PM EDT
--- OUTSIDE RECORDS SUMMARY | 2025-02-06 11:45 | XMS_ITS ---
Author Organization Faheem Palomo III, MD Address [address] [place] [address] Care Team Providers Care Bed Spring Maker Name Role Phone KIZZY BELL, KATHRYN Primary Care Provider Unavail able Dr. Faheem Palomo III Unavailable [phone] DEBBIE LEWIS, FRANCINE Unavailable Unavailable Allergies Allergen [...] Problem Status W/U Status Risk Notes Problem [id number] Lobular carcinoma in situ (LCIS) of right [...] Date Provider Diagnosis Faheem Palomo III, MD [address] [place] [address] [address] [place] [phone] 02/06/2025 Faheem Kaplanrne Vitamin D deficiency , [...] Provider Name:Faheem Palomo , 08/07/2025 02:30:00 PM, [address] [place] [address] [address], [place], [phone], Progress Notes * Nilda HUITRON MDOB :1970 (54 yo F)Acc No.[id number]:02/06/2025 Progress Notes Patient: Darcie Nilda DAMON M Provider: Magdaleno Palomo MD :1970 A ge:54 Y S ex:Female Date:02/06/2025 Address:[address] [place] [address] GARY MCNEAL [phone] Pcp:KATHRYN DURAND NP Subjective: * Chief Complaints: [...] healthy and well. She is not a Mandaeism and is not currently . * Medications: [...] 02/06/2025 Generated for Anton bhakta/Mary Ellen/Nonaitting on: 05:00 [...]
--- OUTSIDE RECORDS SUMMARY | 2025-03-18 11:00 | XMS_ITS ---
Author Organization [facility] Address [address] [facility] [address] [place] [address] Care Team Providers Care Sky Diver Name Role Phone KATHRYN DURAND M.D Primary Care Provider Radha Dominguez Unavailable [phone] REASON FOR VISIT Annual PATIENT CARE ASSISTANT Physical Encounters Encounter Location Date Provider Diagnosis [facility] [address] [place] [address] 03/18/2025 Radha Anderson Plan Of Treatment Next Appt Details Provider Name:Radha giron, 07/29/2025 02:40:00 PM, [address] [facility], [address], [place], [address], Progress Notes * MARY GILBERTDOB:0 1970 (55 yo F)Acc No.[id number]:03/18/2025 PROGRESS NOTES Patient: MARY RODRÍGUEZ Appointment Provider: Sigifredo Anderson M.D. :1970 A ge:55 Y S ex:Female Date:03/18/2025 Address:[address] [place], [place] [address] Pcp:KATHRYN DURAND M.D Subjective: * Chief Complaints: * 1 . Annual PATIENT CARE ASSISTANT Physical. * Medical History: Objective: * Vitals: Assessment: Plan: * Treatment: * Images: Billing Information: * Visit Code: * Procedure Codes: * Electronic signature of Oscar Anderson MD on 03/20/2025 at 05:00 PM EDT Sign off status: Pending * Appointment Provider: Sigifredo Anderson M.D. Date: Generated for Anton bhakta/Mary Ellen/Behzad on: 05:00 PM EDT
--- NOTE | 2025-03-20 15:42 | A.OFFVIS_ITS ---
Vital Signs 03/20/25 15:43 Height 5 ft 7 in Weight 149 lb BMI 23.3 BP 113/69 Blood Pressure Location Rt brachial Position Sitting Pulse 66 Intake Visit Reasons: pre Colonoscopy screening Intake Note: Nilda presents to in office pre colonoscopy screening. CC: Patient denies having any GI symptoms or concerns today. Social Scientist Required: No Accompanied by: Self / Same As Patient Allergies epinephrine (EPINEPHRINE) Allergy (Intermediate, Verified 03/20/25 15:45) HEART RACES, palpitations, tachycardia Sulfa (Sulfonamide Antibiotics) (SULFA (SULFONAMIDE ANTIBIOTICS)) Allergy (Intermediate, Verified 03/20/25 15:45) RASH Medication List - Last Reconciled 03/20/25 by Martha Camargo CNP cholecalciferol (vitamin D3) 25 mcg PO DAILY doxycycline hyclate 100 mg PO DAILY PRN HPI HPI pre Colonoscopy screening: Details: Patient is a 55-year-old female with PMH of . Last visit with TRISTA Veliz 11/30/2022 for post endoscopy follow up. Family hx of colon ca and prior colonoscopy in 10/2022 showing a benign polyp and external hemorrhoid. No current GI alarm symptoms. Reports long-standing constipation with variable stool consistency, averaging 2 BMs/week, frequently small and requiring effort but rarely significant straining. Describes post-BM passage of small amt mucus?tannish or whitish in color?especially following incomplete evacuation or impatience, not associated with incontinence or pain. No incidents of overt fecal incontinence; pt retains full control. Also notes external hemorrhoid, present for yrs, visible on last colonoscopy, managed with topical witch shawna with relief. Occasional heartburn after large meals or late eating, responds to Tums. Has noticed inconsistent GI response to dairy (ice cream ? diarrhea, cheese ? constipation); considering food allergy/lactose/celiac eval, as pattern is inconsistent. No prior similar complaints before most recent colonoscopy No hx IBD, no concerning FHx for IBD. Med hx and non-GI conditions as below. Patient denies: fever/chills, n/v, appetite changes, pyrosis, regurgitation,dysphasia, unintentional wt loss, ab pain or melena/hematochezia. Social hx: -ETOH use 1x/week -denies recreational drug use -non-smoker - family hx as below -denies personal hx of CA -denies significant cardiopulmonary history -tolerated anesthesia in the past without difficulty. [facility] Medical History (Updated 03/20/25 @ 17:11 by Martha Camargo CNP) Constipation Surgical History H/O colonoscopy History of tonsillectomy History of right breast biopsy History of appendectomy Family History Father Colon cancer Cancer of pancreas Mother Bladder cancer HTN (hypertension) High cholesterol H/O aortic valve replacement Maternal Grandmother Cancer of pancreas Paternal Grandmother No problems noted. 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 Cognitive needs: No Hearing needs: No Vision needs: No Review of Systems Const Reports as per HPI ENT Reports as per HPI Card Reports as per HPI Resp Reports as per HPI GI Reports as per HPI Reports as per HPI Physical Exam Vital Signs: Last Vital Signs Pulse 66 03/20/25 15:43 BP 113/69 03/20/25 15:43 BMI result Body Mass Index 23.3 Const General: healthy appearing, no acute distress and well developed Nutritional Appearance: average body habitus Orientation/consciousness: patient oriented x3 HEENT Head: Yes normal to inspection, Yes normocephalic and Yes atraumatic Face and sinus: Yes normal facial exam Eyes General: appearance normal, both eyes and all related structures Neck Neck: Yes normal visual inspection Resp Effort & Inspection: normal respiratory effort, able to speak in complete sentences, no tracheal deviation and symmetric chest movement Auscultation: clear to auscultation bilaterally Cardio Jugular venous distension: no JVD Rate: regular rate Rhythm: regular rhythm Heart sounds: S1 normal heart sound present, S2 normal heart sound present, no gallops and no murmurs GI Inspection: Yes normal to inspection and No distended Palpation (GI): Soft to palpation, not firm, nontender and No hepatosplenomegaly present Auscultation: normal bowel sounds Rectal Exam - Female: visual inspection normal, normal sphincter tone, No fecal impaction, No Lesions present (GI), No Anal fissure(s) present, No hemorrhoids, No Laceration(s) present (GI), No Excoriation present (GI), No mass and No tenderness Neuro General: patient oriented x3 Gait exam (Neuro): Normal gait present Psych Appearance: grossly normal Mental Status: mental status grossly normal Speech and movement: Normal speech and movement present Affect: normal affect Attitude: cooperative Thought process: Normal thought process present Thought content: Normal thought content present Insight: Good insight present (Psych) Judgement: Good judgement present (Psych) Results Reviewed Results Reviewed: Operative Note Date of Service: 10/26/22 Narrative: Procedure: Colonoscopy Indication: Screening, Family history of colon cancer Endoscopist: Janelle Adams MD Anesthesia Provider: Dr Mason Byrd Anesthesia type: MAC Instrument: FunnelFire [id number]-[id number] Consent: Indication, risks vs benefits, and alternatives were discussed with the patient who gave written informed consent to proceed. EKG, pulse, pulse oximetry and blood pressure were monitored throughout the procedure. Please see anesthesia flowsheet. Procedure: The patient was brought to the procedure room and placed in the left lateral decubitus position. IV medications were administered by the anesthesia provider in attendance. A digital rectal exam was performed which was normal. A distal attachment cap was affixed to the tip of the scope and the colonoscope was then inserted through the anus and advanced through the colon to the cecum at 75 cm,and terminal ileum. Mucosa was carefully examined under high definition white light as the instrument was slowly withdrawn in a retrograde panoramic fashion. Retroflexion was performed in rectum. The procedure was not difficult. There were no immediate obvious complications. The quality of the prep was BBPS: 3+3+2 = adequate Withdrawal time 9 minutes. Limitations: No limitations. Findings: Mucosa: Normal to cecum and terminal ileum. Protruding lesions: 1 sessile polyp of size 2 mm in sigmoid colon. Cold forceps polypectomy was performed. The polyp was completely removed and retrieved. Medium external hemorrhoids without stigmata of recent bleeding. Impression: 1. Normal colon and terminal ileum mucosa 2. Total of 1 polyp removed from sigmoid colon. 3. External hemorrhoids Recommendations: - Follow path results. - Repeat colonoscopy in 5 years due to family history of CRC. PATHOLOGY: Collected: 10/26/22 Location: HO.SSS Received: 10/26/22 Diagnosis Colon, sigmoid, polypectomy: Hyperplastic mucosal polyp. Clinical History Pre-Op Dx: Family hx of colon cancer Post-Op Dx: Colon polyp, hemorrhoids Assessment & Plan Assessment & Plan (1) Family history of colon cancer: Comment: 10/26/22 colonoscopy complete with adequate prep-Normal to cecum and terminal ileum, 2 mm HP (sigmoid), Medium external hemorrhoids. Recommendations for repeat in 5 years due to family history of CRC. Code(s): Z80.0 - Family history of malignant neoplasm of digestive organs Category: Medical Plan: Family hx of colon ca and prior colonoscopy 10/2022 with benign polyp and external hemorrhoid; current guidelines recommend repeat colonoscopy in 5 yrs. Additional Testing: No immediate need for colonoscopy; next due 2027 unless new/worrisome sx arise. Medication Management: N/A. Lifestyle Recommendations: Continue routine CRC risk reduction (diet, activity, avoid tobacco). Follow-Up: Reassess CRC screening interval at next GI or PCP visit, or sooner if sx change. (2) Constipation: Code(s): K59.00 - Constipation, unspecified Category: Medical Qualifiers: Constipation type: unspecified constipation type Qualified Code(s): K59.00 - Constipation, unspecified Plan: Chronic, variable BM pattern, incomplete evac, mucus leakage after BM, PE shows normal sphincter tone, recent normal colonoscopy. Additional Testing: None at this time beyond pending labs for celiac panel, food allergy, and lactose/gluten sensitivity per pt request. Medication Management: None initiated; pt prefers non-pharm options currently. Lifestyle Recommendations: Increase fiber (fruits, veg, legumes), maintain hydration, ensure regular physical activity, avoid excessive/prolonged sitting on toilet, allow adequate time to complete BM (~5 min/session), keep symptom/food diary to assess triggers. Follow-Up: 2 months, sooner PRN if sx worsen or new sx develop. (3) Hemorrhoids: Code(s): K64.9 - Unspecified hemorrhoids Category: Medical Qualifiers: Hemorrhoid type: unspecified Qualified Code(s): K64.9 - Unspecified hemorrhoids Plan: Clinically apparent in hx and prior colonoscopy, intermittently symptomatic, currently managed conservatively with witch shawna. Additional Testing: None by GI; pt to discuss with general surgery for elective discussion/removal if desired (established pt). Medication Management: Continue topical (witch shawna PRN). Lifestyle Recommendations: Avoid prolonged sitting/straining, optimize constipation mgmt, consider discussing surgical options with general surgery if bothersome. Follow-Up: As above or sooner if significant acute hemorrhoidal flare, pers istent bleeding, severe pain. Plan Follow-up 3 months or sooner as needed Time: I spent a total of 45 minutes on the date of encounter which includes: Preparing to see the patient (reviewed previous documentation, test results and medical history) Performing a medically appropriate exam and/or evaluation Ordering medications, tests, and procedures Documenting clinical information in the health record Orders: Orders Transglutaminase IgA Today K59.00 - Constipation, unspecified Coding Level of Care Code New Pt New Pt Level 4 (90545) Patient Type New Diagnoses Family history of colon cancer Z80.0 Constipation, unspecified constipation type K59.00 Constipation type: unspecified constipation type Hemorrhoids, unspecified hemorrhoid type K64.9 Hemorrhoid type: unspecified
[2025-03-20 15:43] VITALS: BP 113/69; PULSE 66; BMI 23.3
--- OUTSIDE RECORDS SUMMARY | 2025-03-20 17:00 | XMS_ITS | Patient Health Record ---
Author Organization Faheem Palomo III, MD Address [address] [place] [address] Care Team Providers Care Shrimp Peeling Machine Tender Name Role Phone KATHRYN BLOOD NP Primary Care Provider Unavail able Dr. Faheem Palomo III Unavailable [phone] FRANCINE LEWIS MD Unavailable Unavailable Allergies Allergen (clinical drug ingredient) Drug/Non Drug Allergy documented on EMR Reaction Allergy Type Onset Date Status sulfacetamide Sulfacetamide rash Drug Allergy Active EPINEPHrine Unknown Drug Allergy Activ e Results Component Value Reference Range Notes MR breast BI wo/w con Reviewed date:08/02/2024 05:00:33 AM Interpretation: Performing Lab: Notes/Report: [address] [address] Magnetic Resonance Report Signed Patient: Nilda Huitron MR#: [id number] : 1970 Acct:[id number] Age/Sex: 54 / F ADM Date: 07/28/24 Loc: HO.MRI Attending Dr: Kathryn Odell MD Ordering Physician: Kathryn Odell MD Date of Service: 07/28/24 Procedure(s): MR breast BI wo/w con Accession Number(s): [id number] cc: Faheem Palomo MD; Kathryn Blood [facility]-; Kathryn Odell MD EXAMINATION: MR BREAST WITHOUT [...] 07/31/24 1141 DD/ 1555 TD/TT: 07/28/24 1630 Operating Room Tech: [place] [address] Magnetic Resonance Report Signed Patient: Nilda Chávez MR#: [id number] : 1970 Acct:[id number] Age/Sex: 54 / F ADM Date: 07/28/24 Loc: .MRI Attending Dr: Kathryn Odell MD Ordering Physician: Kathryn Odell MD Date of Service: 07/28/24 Procedure(s): hetal ast BI wo/w con Accession Number(s): [id number] cc: Faheem Palomo MD; Kathryn Blood [facility]-; Kathryn Odell MD EXAMINATION: MR BREAST WITHOUT [...] surveillance. Electronically maria eugenia d by: Thi sEpinoza DO 07/31/2024 11:41 AM EST Dictated By: Thi Mata i, DO Signed By: <Electron ically signed by Thi Espinoza DO in OV> 07/31/24 1141 DD/ 1555 TD/TT: 07/28/24 1630 Operating Room Tech: Reason For Referral No Information Medications Medication [...] Problem Status W/U Status Risk Notes Problem 921156194 Overweight (E66.3) Active confirmed She has gained 5 pounds since her last visit. She has become slightly overweight. We discussed diet and nutrition and a weight loss strategy today. Problem Vitamin D deficiency (55898781) Vitamin D deficiency, unspecified (E55.9) Active confirmed She will continue on her vitamin D supplementat ion. Problem Family history of cancer (979021086) Family history of malignant neoplasm, unspecified (Z80.9) Active confirmed Her mother has a history of bladder cancer. The patient's urine has been unremarkable . Problem Allergy to sulfonamides (90224830) Allergy status to sulfonamides status (Z88.2) Active confirmed Problem 648243908 History of appendectomy (Z90.49) Active confirmed Problem 086369231 History of tonsillectomy (Z90.89) Active confirmed Problem 209075789984109 Lobular carcinoma in situ (LCIS) of right [...] Date Provider Diagnosis Faheem Palomo III, MD [address] [place] [address] [place] [address] 07/04/2024 Faheem Palomo Breast lobular neoplasia, right D05.01 ; Family history of malignant neoplasm, unspecified Z80.9 ; Vitamin D deficiency, unspecified E55.9 and Overweight E66.3 Faheem Palomo III, MD [address] [place] [address] [place] [address] 02/06/2025 Faheem Palomo Vitamin D deficiency , [...] 09/22/2022 LIPID PANEL 09/22/2022 CBC w DIFF 02/06/2025 CBC w DIFF 09/22/2022 MRI BREAST BILATERAL 04/03/2016 MRI BREAST BILATERAL 09/20/2018 MRI BREAST BILATERAL 06/29/2023 MAMMOGRAM DIGITAL BILATERAL DIAGNO 06/29 VITAMIN D 25-OH TOTAL 09/22/2022 CBC WITH AUTO DIFF 06/29/2023 Lipid Panel 02/06/2025 Lipid Panel 06/29/2023 Vitamin D 25-OH Total 02/06/2025 Next Appt Details Provider Name:Faheem Palomo , 08/07/2025 02:30:00 PM, [address] [place] [address] BOB [place]UR[place], [place], [address], Insurance Providers Payer Name Payer Address Payer Phone Subscriber Number Group Number Insured Name Patient Relationship to Insured Coverage Start Date Coverage End Date CASSANDRA Padilla [id number] KIM SPANN [id number] Crystal Dinah Nilda Self - patient is the insured Medical [...]
--- OUTSIDE RECORDS SUMMARY | 2025-03-20 17:00 | XMS_ITS | Clinical Summary ---
Author Organization [facility] Address [address] [place] [address] Phone Care Team Providers Care Infantry Weapons Officer Name Role Phone Amy Awan MD Primary [...] (2 - 2024-2 6 season) 2025 11/05/2020 RSV VACCINE (1 - 1-dose 75+ series) 02/25/2044 SMOKING STATUS SCREENING (On ce After 26 [...] topic Medical Devices Not on file Insurance CIGNA PPO CIGNA PPO CIGNA PPO CIGNA PPO CIGNA PPO CIGNA PPO Care Teams Infantry Weapons Officer Relationship Specialty Start Date End Date Amy Awan MD [address] [place] [address] PCP - General Internal Medicine 12/03/17 Additional Source Comments The information contained in this document represents components of the legal health record. It is not the complete legal health record.[facility]
--- OUTSIDE RECORDS SUMMARY | 2025-03-20 17:00 | XMS_ITS | Encounter Summary ---
Author Organization [facility] Address [address] [place] [address] Phone Care Team Providers Care Canvas Shop Laborer Name Role Phone Amy Awan MD Primary Care Provider Reason for Referral * Physical Therapy (Routine) - Closed Specialty Diagnoses / Procedures Referred By Contac t Referred To Contact Physical Therapy Diagnoses Encounter for rehabilitation System, Provider Not In, PhD [id number] [place] [address] Phone: tel: Referral ID Status Reason Start Date Expiration Date Visits Re quested Visits Authorized [id number] Closed 12/26/2017 12/25/2018 30 30 Encounter Details Date Type Department Care Team (Latest Contact Info) Description 12/05/2017 Transcribe Orders [facility] [address] [place] [address] Branden Solis PA [address] [facility] [place] [address] Encounter for rehabilitation (Primary Dx) Social History [...] referral to [facility] Physical Therapy Outpatient Referral Routine Encounter for rehabilitation Ordered: 12/05/2017 documented as of this encounter Visit Diagnoses Diagnosis Encounter for rehabilitation- Primary documented in this encounter Additional Health Concerns Infection Onset Date Last Indicated Resolved Time CoV-Risk 05/29/2023 05/29/2023 06/09/2023 1:22 AM EST documented as of this encounter Care Teams Canvas Shop Laborer Relationship Specialty Start Date End Date Amy Awan MD [address] [place] [address] [place] [address] PCP - General Internal Medicine 12/03/17 documented as of this encounter Additional Source Comments The information contained in this document represents components of the legal health record. It is not the complete legal health record.[facility]
--- OUTSIDE RECORDS SUMMARY | 2025-03-20 17:00 | XMS_ITS | Encounter Summary ---
Author Organization [facility] Address [address] [place] [phone] Phone Care Team Providers Care Churn Operator Margarine Name Role Phone Amy Awan MD Primary Care Provider Reason for Referral * Physical Therapy (Elective) - Closed Specialty Diagnoses / Procedures Referred By Contac t Referred To Contact Physical Therapy Diagnoses Encounter for rehabilitation Low back pain M54.5 Procedures Evaluate & Treat Marc Blood NP Phone: tel: fax: [address] [address] Phone: tel: Referral ID Status Reason Start Date Expiration Date Visits Re quested Visits Authorized [id number] Closed 12/29/2020 05/27/2021 15 15 Encounter Details Date Type Department Care Team (Latest Contact Info) Description 11/16/2020 Transcribe Orders [facility] [address] [place] [phone] Marc Blood NP [facility] [place] [address] Encounter for rehabilitation (Primary Dx) Social History [...] Diagnoses Orde r Schedule Ambulatory referral to [facility] Physical Therapy Outpatient Referral Routine Encounter for rehabilitation Ordered: 11/16/2020 documented as of this encounter Visit Diagnoses Diagnosis Encounter for rehabilitation- Primary documented in this encounter Additional Health Concerns Infection Onset Date Last Indicated Resolved Time CoV-Risk 05/29/2023 05/29/2023 06/09/2023 1:22 AM EST documented as of this encounter Care Teams Churn Operator Margarine Relationship Specialty Start Date End Date Amy Awan MD [address] [place] [address] PCP - General Internal Medicine 12/03/17 documented as of this encounter Additional Source Comments The information contained in this document represents components of the legal health record. It is not the complete legal health record.[facility]
--- OUTSIDE RECORDS SUMMARY | 2025-03-20 17:00 | XMS_ITS | Encounter Summary ---
Author Organization [employer] Address [address] [place] [address] Care Team Providers Care Life Insurance Underwriter Name Role Phone Unavailable Primary Care Provider Unavailabl e Encounter Details Date Type Department Care Team (Latest Contact Info) Description 02/28/2019 Abstract [facility] Dental, Provider, DDS Social History [...]
--- OUTSIDE RECORDS SUMMARY | 2025-03-20 17:00 | XMS_ITS | Patient Health Record ---
Author Organization [employer] [facility] Address [address] [place] [address] Care Team Providers Care Commission Agent Livestock Name Role Phone KATHRYN DURAND M.D Primary Care Provider Radha Dominguez Unavailable [phone] Allergies Allergen (clinical drug ingredient) Drug/Non Drug Allergy documented on EMR Reaction Allergy Type Onset Date Status epinephrine Epinephrine Elevated Heart Rate Drug Allergy Active Substance with sulfonamide structure and antibacterial mechanism of action (substance) Sulfa Antibiotics Unknown Drug Allergy Active Reason For Referral No Information Medications Medication [...] Status W/U Status Risk Notes Problem Menopause (994254603) Menopausal and female climacteric states (N95.1) Active confirmed Problem Lobular carcinoma in situ of right breast (568693983401066) 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 Problem Perimenopausal disorder (169443754) Other specified menopausal and perimenopausal disorders (N95.8) Active confirmed Problem History of carcinoma in situ of breast (7527933856235325 8) Personal history of in-situ neoplasm of breast (Z86.000) Active confirmed Plan Of Treatment Pending Test Test Name [...] 02/20/2024 Next Appt Details Provider Name:Radha giron, 07/29/2025 02:40:00 PM, [address], [address], [place], [address], Insurance Providers Payer Name Payer Address Payer Phone Subscriber Number Group Number Insured Name Patient Relationship to Insured Coverage Start Date Coverage End Date [facility] [address] [place] [address] [phone] [id number] MARY GILBERT Self - patient is the insured Medical (General) History Medical History History ICD Code Lobular carcinoma in situ of right breas t D05.01 Menopausal and female climacteric states N95.1 Inconclusive mammogram R92.2 Personal history of in-situ neoplasm of breast Z86.000 Other specified menopausal and perimenop ausal disorders N95.8 Mammographic heterogeneous density, bila teral breasts R92.333 Surgical History Surgery Date(Month/Year) Appendectomy Tonsillectomy [place] R breast bx (LCIS) 2014 Hospitalization History Reason Date(Month/Year) See Surgical Hx 2 Vaginal Deliveries
--- OUTSIDE RECORDS SUMMARY | 2025-03-20 17:00 | XMS_ITS | Encounter Summary ---
Author Organization [facility] Address [address] [place] [address] Phone Care Team Providers Care Nodulizer Name Role Phone Amy Awan MD Primary Care Provider Reason for Referral * Physical Therapy (Routine) - Closed Specialty Diagnoses / Procedures Referred By Contac t Referred To Contact Physical Therapy Diagnoses Encounter for rehabilitation System, Provider Not In, PhD [phone] [place] [address] Phone: tel: Referral ID Status Reason Start Date Expiration Date Visits Re quested Visits Authorized [id number] Closed 12/06/2017 12/06/2018 1 1 Encounter Details Date Type Department Care Team (Latest Contact Info) Description 12/06/2017 Transcribe Orders [facility] Rehabilitation Services [address] [place] [address] Amy Awan MD [address] [place] [address] [place] [address] Encounter for rehabilitation (Primary Dx) Social History [...] Diagnoses Orde r Schedule Ambulatory referral to [facility] Physical Therapy Outpatient Referral Routine Encounter for rehabilitation Ordered: 12/06/2017 documented as of this encounter Visit Diagnoses Diagnosis Encounter for rehabilitation- Primary documented in this encounter Additional Health Concerns Infection Onset Date Last Indicated Resolved Time CoV-Risk 05/29/2023 05/29/2023 06/09/2023 1:22 AM EST documented as of this encounter Care Teams Nodulizer Relationship Specialty Start Date End Date Amy Awan MD [facility] [place] [address] PCP - General Internal Medicine 12/03/17 documented as of this encounter Additional Source Comments The information contained in this document represents components of the legal health record. It is not the complete legal health record.[facility]
--- OUTSIDE RECORDS SUMMARY | 2025-03-20 17:00 | XMS_ITS | Clinical Summary ---
Author Organization [employer] Address [address] [facility] 7t [place] [address] Care Team Providers Care Scooping Machine Tender Name Role Phone Unavailable Primary Care Provider Unavailabl e Allergies Active Allergy Reactions Criticality Noted Date Comments Epinephrine Unknown 07/17/2013 Lidocaine 07/17/2013 Nickel 07/17/2014 Sulfa Antibiotics Rash Low 09/22/2022 Medications doxycycline (Vibramycin) 100 MG capsule daily. Active Active Problems No known active problems Encounters Date Type Department Care Team Description 01/09/2025 Telephone [facility] ADULT DENTAL [address] [place] [address] Hailee Turk DDS Follow-up (Patient had a recovery complaint however the issue was resolved for patient was already on the schedule for their six month recall which was schedule back in June./) 12/31/2024 8:00 AM EDT Office Visit [facility]ULT [facility] [address] [place] [address] Evie Munoz 12/30/2024 Travel from Last 3 Months Social History Tobacco [...] 01/19/2023, 01/05/2023, Additional history exists COVID-19 Vaccine (2024- season) 2025 11/05/2020, 10/15/2020 Influenza Vaccine (#1) [...] Diagnosis Comments PROPHYLAXIS - ADULT Routine 12/31/2024 8:00 AM EDT BITEWINGS - 4 RADIOGRAPHIC IMAGES Routine 12/27/2023 3:00 PM EDT INTRAORAL - COMPLETE SERIES OF RADIOGRAPHIC IMAGES Routine 01/05/2023 9:00 AM EDT PERIODIC ORAL EVALUATION - ESTABLISHED PATIENT Routine 01/05/2023 9:00 AM EDT from Last 3 Months or Most Recently Relevant to Health Maintenance Insurance DENTAL - [facility] [place] [id number]
--- OUTSIDE RECORDS SUMMARY | 2025-03-20 17:00 | XMS_ITS | Clinical Summary ---
Author Organization [facility] Address [address] [place] [address] Care Team Providers Care Microarray Operations Vice President Name Role Phone Pcp, No Primary Care [...] 2) 2019 Influenza Vaccine 12/26/2024 COVID-19 Vaccine (1 - 2023-25 season) 2025 RSV Vaccine 50 years and old er and Patients (1 - 1-dose 75+ series) 02/25/2044 Insurance [employer] HMO Care Teams Microarray Operations Vice President Relationship Specialty Start Date End Date Pcp, No PCP - General General Medicine 08/27/23
--- OUTSIDE RECORDS SUMMARY | 2025-03-20 17:00 | XMS_ITS | Encounter Summary ---
Author Organization [employer] Address [address] [facility] 7t [place] [address] Care Team Providers Care Data Migration Consultant Name Role Phone Unavailable Primary Care Provider Unavailabl e Encounter Details Date Type Department Care Team (Latest Contact Info) Description 02/08/2021 Abstract [facility] CONVERSIONS Dental, Provider, DDS Social History [...]
== END 2025-03-20 16:24 | disposition home or self-care (01) ==
LOC: HO.HGI 15:39
PROVIDERS: PCP Nurse Practitioner Family; Visit Provider Nurse Practitioner Family
DX: Z80.0 Family history of malignant neoplasm of digestive organs (principal); K59.00 Constipation, unspecified; K64.9 Unspecified hemorrhoids
CPT/HCPCS: 99204

== ENCOUNTER 2025-04-10 06:54 | Outpatient (REF) | payer OTHER, SELFPAY ==
--- OUTSIDE RECORDS SUMMARY | 2023-12-28 10:00 | XMS_ITS ---
Author Organization Faheem Palomo III, MD Address [address] [place] [address] Care Team Providers Care Manager Trust Name Role Phone KATHRYN DURAND NP Primary [...] Date Provider Diagnosis Faheem Palomo III, MD [address] [place] [address] [place] [address] 12/28/2023 Faheem Palomo Breast lobular neoplasia, right [...] Provider Name:Faheem Palomo , 08/07/2025 02:30:00 PM, [address] [place] [address], [address], Progress Notes * Nilda HUITRON MDOB :1970 (53 yo F)Acc No.[id number]:12/28/2023 Progress Notes Patient: Nilda Dominguez Provider: Magdaleno Palomo MD :1970 A ge:53 Y S ex:Female Date:12/28/2023 Address:[address] [place], [place] [id number] Pcp:KATHRYN DURAND NP Subjective: * Chief Complaints: [...] healthy and well. She is not a Protestant and is not currently . * Medications: [...] 12/28/2023 Generated for Anton bhakta/Mary Ellen/Nonaitting on: 06/10/2024 06:58 AM EST History and Physical Notes * [...]
--- OUTSIDE RECORDS SUMMARY | 2024-07-04 10:00 | XMS_ITS ---
Author Organization Faheem Palomo III, MD Address [address] [place] [address] Care Team Providers Care Ammunition Storage Superintendent Name Role Phone KATHRYN DURAND NP Primary Care Provider Unavail able Dr. Faheem Palomo III Unavailable DEBBIE LEWIS, FRANCINE Unavailable Unavailable Allergies Allergen [...] Problem Status W/U Status Risk Notes Problem [id number] Overweight (E66.3) Active confirmed She has gained [...] Date Provider Diagnosis Faheem Palomo III, MD [address] [place] [address] [address] [place] [phone] 07/04/2024 Faheem Palomo Breast lobular neoplasia, right [...] Provider Name:Faheem Palomo , 08/07/2025 02:30:00 PM, [address] [place] [address] [address], [place], [phone], Progress Notes * Nilda HUITRON MDOB :1970 (54 yo F)Acc No.[id number]:07/04/2024 Progress Notes Patient: Darcie RUSS Nilda NIX Darcie Provider: Magdaleno Palomo MD :1970 A ge:54 Y S ex:Female Date:07/04/2024 Address:[address] [place] [address], [place], [id number] Pcp:KATHRYN DURAND NP Subjective: * Chief Complaints: [...] healthy and well. She is not a [employer] and is not currently . * Medications: [...] 07/04/2024 Generated for Anton bhakta/Mary Ellen/Behzad on: 06/10/2024 06:57 AM EST History and Physical Notes * [...]
--- OUTSIDE RECORDS SUMMARY | 2025-01-02 12:30 | XMS_ITS ---
Author Organization Faheem Palomo III, MD Address [address] [place] [address] [address] [facility] [place] [address] Care Team Providers Care Reservations Specialist Name Role Phone KIZZY BELL, KATHRYN Primary Care Provider Unavail able Dr. Faheem Palomo III Unavailable DEBBIE LEWIS, FRANCINE Salcido Unavailable REASON FOR VISIT Follow up Encounters Encounter Location Date Provider Diagnosis Faheem Palomo III, MD [address] [place] [address] [place] [address] 01/02/2025 Faheem Palomo Plan Of Treatment Next Appt Details Provider Name:Faheem Palomo , 08/07/2025 02:30:00 PM, [address] [place] [address] [place], [address], Progress Notes * Nilda HUITRON MDOB :1970 (55 yo F)Acc No.[id number]:01/02/2025 Progress Notes Patient: Nilda RODRÍGUEZ Provider: Magdaleno Palomo MD :1970 A ge:54 Y S ex:Female Date:01/02/2025 Address:[address] [place] [address] [facility] [id number] Pcp:KATHRYN DURAND NP Subjective: * Chief Complaints: * 1 . Follow up. * Medical History: Objective: * Vitals: Assessment: Plan: * Treatment: * Images: * The named appointment provid er may or may not be the originator of this progress note, and it is not deemed complete until electronically signed by the appointment provider. Sign off status: Pending * Provider: Magdaleno Palomo MD Date: 0 01/02/2025 Generated for Anton bhakta/Mary Ellen/Behzad on: 06/10/2024 06:57 AM EST
--- OUTSIDE RECORDS SUMMARY | 2025-02-06 10:45 | XMS_ITS ---
Author Organization Faheem Palomo III, MD Address [address] [place] [address] Care Team Providers Care Workday Manager Name Role Phone KIZZY BELL, KATHRYN Primary Care Provider Unavail able Dr. Faheem Palomo III Unavailable DEBBIE LEWIS, FRANCINE Unavailable Unavailable Allergies Allergen (clinical drug ingredient) Drug/Non Drug Allergy documented on EMR Reaction Allergy Type Onset Date Status sulfacetamide Sulfacetamide rash Drug Allergy Active EPINEPHrine Unknown Drug Allergy Activ e REASON FOR VISIT History of lobular carcinoma right breast Medications Medication SIG (Take, Route, Fr equency, Duration) Notes Start Date End Date Status Vitamin D 2000 UNIT 1 capsule Orally Once a day Active Social History Tobacco Use: Social History Observation Description Date Details (start date - stop date) Never Smoker NA - NA Tobacco Use/Smoking Question Answer Notes Patient is a nonsmoker Additional Findings: Tobacco Non-User Aggressive non-smoker Problems Problem Type SNOMED Code ICD Code Onset Dates Problem Status W/U Status Risk Notes Problem [id number] 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 She will continue breast self-examinat ion as well as annual mammography an MRI. Vital Signs Temperature 97.8 degrees Fahrenheit 02/07/20 25 Blood pressure systolic 130 mm Hg 02/07/20 25 Blood pressure diastolic 66 mm Hg 025 Heart Rate 72 /min 02/06/2025 Height 66 in 02/06/2025 Weight 150 lbs 02/06/2025 BMI 24.21 kg/m2 02/06/2025 Encounters Encounter Location Date Provider Diagnosis Faheem Palomo III, MD [address] [place] [address] [address] [place] [address] 02/06/2025 Faheem Kaplanrne Vitamin D deficiency , unspecified E55.9 ; Lobular carcinoma in situ (LCIS) of right breast D05.01 and Family history of malignant neoplasm, unspecified Z80.9 Assessments Encounter Date Diagnosis (ICD Code) Assessment Notes Treatment Notes Treatment Clinical Notes 02/06/2025 Vitamin D deficiency, unspecified (ICD-10 - E55.9) She will continue on her vitamin D supplementation. 02/06/2025 Lobular carcinoma in situ (LCIS) of right breast (ICD-10 - D05.01) There is currently no sign of a new breast neoplasm. She will continue breast self-examination as well as annual mammography an MRI. 02/06/2025 Family history of malignant neoplasm, unspecified (ICD-10 - Z80.9) Her mother has a history of bladder cancer. The patient's urine has been unremarkable. Plan Of Treatment Medication Medication Name Sig Start Date Stop Date Notes Vitamin D 2000 UNIT 1 capsule Orally Once a day Pending Test Test Name Order Date PROFILE, FASTING (COMPREHENSIVE METABOLI C) 02/06/2025 CBC w DIFF 02/06/2025 Lipid Panel 02/06/2025 Vitamin D 25-OH Total 02/06/2025 Next Appt Details Follow Up: 6 Months, Reason: OV Provider Name:Faheem Palomo , 08/07/2025 02:30:00 PM, [address] [place] [address] [address], [place], [address], Progress Notes * Nilda HUITRON MDOB :1970 (54 yo F)Acc No.[id number]:02/06/2025 Progress Notes Patient: Darcie Nilda DAMON M Provider: Magdaleno Palomo MD :1970 A ge:54 Y S ex:Female Date:02/06/2025 Address:[address] [place] [address] [id number] Pcp:KATHRYN DURAND NP Subjective: * Chief Complaints: * H istory of lobular carcinoma right breast * HPI: C OVID-19 Screening: She returns for ongoing surveillance of a history of breast cancer. Her mammograms have been normal. The most recent MRI of both breasts showed no sign of malignancy. She is due for another MRI in 6 months. She is conducting breast self-examination with negative results.? Her examination today was unremarkable.She is not aware of any additional cases of malignancy in her family and certainly no breast cancers. Questions H ave you had any new onset fever, chills, cough, congestion, sore throat, shortness of breath, muscle aches? N o * ROS: G eneral/Constitutional: pain [...] atrial fribrillation, multinodular goiter, diagnosed with HTN, Hyperlipidemia, Cancer. 1 brother(s) . 1 son(s) , 1 [...] healthy and well. She is not a Faith and is not currently . * Medications: T akingVitamin D 2000 UNIT Capsule 1 capsule Orally Once a day Taking Vitamin D 2000 UNIT Capsule 1 capsule Orally Once a day DiscontinuedDoxycycline Hyclate 100 MG Capsule 1 capsule Orally Once a day Medication List reviewed and reconciled with the patientDiscontinued Doxycycline Hyclate 100 MG Capsule 1 capsule Orally Once a day Medication List reviewed and reconciled with the patient * Allergies: E PINEPHrine: AllergySulfacetamide: rash - Allergyno[Allergies Verified] Objective: * Vitals: H t: 66, Wt: 150, BMI:24.21, BP: 130/66, HR: 72, Temp: 97.8, Wt-k.04. * Examination: G eneral Examination: GENERAL APPEARANCE: p leasant, well nourished, well developed, in no acute distress, calm and relaxed: woman. HEAD: a traumatic, normocephalic. EYES: e [...] . BREASTS: n o masses palpable bilaterally, All scars healed,: no dimpling: no discharge: no drainage: nontender: symmetrical. ABDOMEN: b owel sounds normal, no ascites, no organomegaly, no mass. RECTAL EXAM: n ot examined. MUSCULOSKELETAL: e xtremities unremarkable, no clubbing, cyanosis or edema. PERIPHERAL PULSES: n ormal. NEUROLOGIC: a lert and oriented, cranial nerves 2-12 grossly intact, deep tendon reflexes 2+ symmetrical, motor strength normal upper and lower extremities, sensory exam intact. PSYCH: a lert, oriented. Assessment: * Assessment: 1. L obular carcinoma in situ (LCIS) of right breast - D05.01 (Primary) N otes :There is currently no sign of a new breast neoplasm. She will continue breast self-examination as well as annual mammography an MRI. 2 . V itamin D deficiency, unspecified - E55.9 N otes :She will continue on her vitamin D supplementation. 3 . F amily history of malignant neoplasm, unspecified - Z80.9 ?Notes :Her mother has a history of bladder cancer. The patient's urine has been unremarkable. Plan: * Treatment: 2. O thers Continue Vitamin D Capsule, 2000 UNIT, 1 capsule, Orally, Once a day. * Procedure Codes: * Follow Up: 6 Months (Reason: OV) * Images: * Sign off status: Completed true * Provider: Magdaleno Palomo MD Date: 0 02/06/2025 Generated for Anton bhakta/Mary Ellen/Nonaitting on: 1 06/10/2024 06:57 AM EST History and Physical Notes * HPI (History of Present Illness) Category Sub-Category Detail Notes COVID-19 Screening Questions Have you had any new onset fever, chills, cough, congestion, sore throat, shortness of breath, muscle aches?: No Examination Category Sub-Category Detail Notes General Examination GENERAL APPEARANCE: pleasant , well nourished, well developed, in no acute distress, calm and relaxed: woman HEAD: atraumatic, normocep halic EYES: eomi, [...] normal BREASTS: no masses palpable b ilaterally, All scars healed,: no dimpling: no discharge: no drainage: nontender: symmetrical MUSCULOSKELETAL: extremities unremark able, no clubbing, cyanosis or edema LYMPH NODES: no enlarged lymph no lazaro,spleen normal RECTAL EXAM: not examined PSYCH: alert, oriented ORAL CAVITY: normal, unremarkable
--- OUTSIDE RECORDS SUMMARY | 2025-03-18 10:00 | XMS_ITS ---
Author Organization [facility] [employer] [facility] Address [address] [place] [address] Care Team Providers Care Career Services Representative Name Role Phone KATHRYN DURAND M.D Primary Care Provider Radha Dominguez Unavailable [phone] REASON FOR VISIT Annual INSPECTOR TYPE Physical Encounters Encounter Location Date Provider Diagnosis [facility] [employer] [address] [place] [address] 03/18/2025 Radha Anderson Plan Of Treatment Next Appt Details Provider Name:Radha giron, 07/29/2025 02:40:00 PM, [address], [address], [place], [address], Progress Notes * MARY GILBERTDOB:0 1970 (55 yo F)Acc No.[id number]:03/18/2025 PROGRESS NOTES Patient: MARY RODRÍGUEZ Appointment Provider: Sigifredo Anderson M.D. :1970 A ge:55 Y S ex:Female Date:03/18/2025 Address:[address] [place], [place] [address] Pcp:KATHRYN DURAND M.D Subjective: * Chief Complaints: * 1 . Annual INSPECTOR TYPE Physical. * Medical History: Objective: * Vitals: Assessment: Plan: * Treatment: * Images: Billing Information: * Visit Code: * Procedure Codes: * Electronic signature of Oscar Anderson MD on 04/10/2025 at 06:57 AM EST Sign off status: Pending * Appointment Provider: Sigifredo Anderson M.D. Date: Generated for Anton bhakta/Mary Ellen/Behzad on: 06/10/2024 06:57 AM EST
--- OUTSIDE RECORDS SUMMARY | 2025-04-10 06:57 | XMS_ITS | Encounter Summary ---
Author Organization [facility] Address [address] [place] [address] Phone Care Team Providers Care Trauma Manager Name Role Phone Amy Awan MD Primary Care Provider Reason for Referral * Physical Therapy (Elective) - Closed Specialty Diagnoses / Procedures Referred By Contac t Referred To Contact Physical Therapy Diagnoses Encounter for rehabilitation Low back pain M54.5 Procedures Evaluate & Treat Marc Blood NP Phone: tel: fax: [address] [address] Phone: tel: Referral ID Status Reason Start Date Expiration Date Visits Re quested Visits Authorized [id number] Closed 12/29/2020 05/27/2021 15 15 Encounter Details Date Type Department Care Team (Latest Contact Info) Description 11/16/2020 Transcribe Orders [facility] Rehabilitation Services [address] [place] [address] Marc Blood NP [facility] [place] [address] Encounter for rehabilitation (Primary Dx) Social History [...] Diagnoses Orde r Schedule Ambulatory referral to [facility] Physical Therapy Outpatient Referral Routine Encounter for rehabilitation Ordered: 11/16/2020 documented as of this encounter Visit Diagnoses Diagnosis Encounter for rehabilitation- Primary documented in this encounter Additional Health Concerns Infection Onset Date Last Indicated Resolved Time CoV-Risk 05/29/2023 05/29/2023 06/09/2023 1:22 AM EST documented as of this encounter Care Teams Trauma Manager Relationship Specialty Start Date End Date Amy Awan MD [address] [place] [address] PCP - General Internal Medicine 12/03/17 documented as of this encounter Additional Source Comments The information contained in this document represents components of the legal health record. It is not the complete legal health record.[facility]
--- OUTSIDE RECORDS SUMMARY | 2025-04-10 06:57 | XMS_ITS | Encounter Summary ---
Author Organization [employer] Address [address] [facility] 7t [place] [address] Care Team Providers Care Bus Starter Name Role Phone Unavailable Primary Care Provider Unavailabl e Encounter Details Date Type Department Care Team (Latest Contact Info) Description 02/08/2021 Abstract [facility] CONVERSIONS Dental, Provider, DDS Social [...]
--- OUTSIDE RECORDS SUMMARY | 2025-04-10 06:57 | XMS_ITS | Patient Health Record ---
Author Organization Faheem Palomo III, MD Address [address] [place] [address] Care Team Providers Care Rebar Fabricator Name Role Phone KATHRYN BLOOD NP Primary Care Provider Unavail able Dr. Faheem Palomo III Unavailable [phone] FRANCINE LEWIS MD Unavailable Unavailable Allergies Allergen (clinical drug ingredient) Drug/Non Drug Allergy documented on EMR Reaction Allergy Type Onset Date Status sulfacetamide Sulfacetamide rash Drug Allergy Active EPINEPHrine Unknown Drug Allergy Activ e Results Component Value Reference Range Notes MR breast BI wo/w con Reviewed date:08/02/2024 05:00:33 AM Interpretation: Performing Lab: Notes/Report: [address] [address] Magnetic Resonance Report Signed Patient: Nilda Huitron MR#: [id number] : 1970 Acct:[id number] Age/Sex: 54 / F ADM Date: 07/28/24 Loc: HO.MRI Attending Dr: Kathryn Odell MD Ordering Physician: Kathryn Odell MD Date of Service: 07/28/24 Procedure(s): MR breast BI wo/w con Accession Number(s): [id number] cc: Faheem Palomo MD; Kathryn Blood [facility]-; Kathryn Odell MD EXAMINATION: MR BREAST [...] 07/31/24 1141 DD/ 1555 TD/TT: 07/28/24 1630 Gauge Controller: [place] [address] Magnetic Resonance Report Signed Patient: Nilda Chávez MR#: [id number] : 1970 Acct:[id number] Age/Sex: 54 / F ADM Date: 07/28/24 Loc: .MRI Attending Dr: Kathryn Odell MD Ordering Physician: Kathryn Odell MD Date of Service: 07/28/24 Procedure(s): hetal ast BI wo/w con Accession Number(s): [id number] cc: Faheem Palomo MD; Kathryn Blood [facility]-; Kathryn Odell MD EXAMINATION: MR BREAST [...] 07/31/24 1141 DD/ 1555 TD/TT: 07/28/24 1630 Gauge Controller: Reason For Referral No Information Medications Medication [...] Problem Status W/U Status Risk Notes Problem 584250400 Overweight (E66.3) Active confirmed She has gained 5 pounds since her last visit. She has become slightly overweight. We discussed diet and nutrition and a weight loss strategy today. Problem Vitamin D deficiency (16804661) Vitamin D deficiency, unspecified (E55.9) Active confirmed She will continue on her vitamin D supplementat ion. Problem Family history of cancer (976817013) Family history of malignant neoplasm, unspecified (Z80.9) Active confirmed Her mother has a history of bladder cancer. The patient's urine has been unremarkable . Problem Allergy to sulfonamides (02727355) Allergy status to sulfonamides status (Z88.2) Active confirmed Problem 763190915 History of appendectomy (Z90.49) Active confirmed Problem 522813444 History of tonsillectomy (Z90.89) Active confirmed Problem 265284263995271 Lobular carcinoma in situ (LCIS) of right [...] Date Provider Diagnosis Faheem Palomo III, MD [address] [place] [address] [place] [address] 07/04/2024 Faheem Palomo Breast lobular neoplasia, right D05.01 ; Family history of malignant neoplasm, unspecified Z80.9 ; Vitamin D deficiency, unspecified E55.9 and Overweight E66.3 Faheem Palomo III, MD [address] [place] [address] [place] [address] 02/06/2025 Faheem Palomo Vitamin D deficiency , [...] CBC w DIFF 02/06/2025 MRI BREAST BILATERAL 04/03/2016 MRI BREAST BILATERAL 09/20/2018 MRI BREAST BILATERAL 06/29/2023 MAMMOGRAM DIGITAL BILATERAL DIAGNO 06/29 VITAMIN D 25-OH TOTAL 09/22/2022 CBC WITH AUTO DIFF 06/29/2023 Lipid Panel 02/06/2025 Lipid Panel 06/29/2023 Vitamin D 25-OH Total 02/06/2025 Next Appt Details Provider Name:Faheem Palomo , 08/07/2025 02:30:00 PM, [address] [place] [address] BOB HURD, JESUSCARA DENNEY, [phone], Insurance Providers Payer Name Payer Address Payer Phone Subscriber Number Group Number Insured Name Patient Relationship to Insured Coverage Start Date Coverage End Date CASS[employer]DRA Pdailla [id number] KIM SPANN [id number] Crystal Dinah Nilda Self - patient is [...]
--- OUTSIDE RECORDS SUMMARY | 2025-04-10 06:57 | XMS_ITS | Clinical Summary ---
Author Organization [facility] Address [address] [facility] [address] [place] [address] Phone Care Team Providers Care Machine Binding Folder Name Role Phone Amy Awan MD Primary [...] patient's age to complete this topic IPV VACCINES Aged Out No longer eligi ble based on patient's age to complete this topic MENINGOCOCCAL VACCINES (ACWY) Aged Out No longer eligible based on patient's age to complete this topic MENINGOCOCCAL VACCINES (B) Aged Out N o longer eligible based on patient's age to complete this topic Medical Devices Not on file Insurance CASSANDRA PPO CIGNA PPO CIGNA PPO CIGNA PPO CIGNA PPO CIGNA PPO Care Teams Machine Binding Folder Relationship Specialty Start Date End Date Amy Awan MD [facility] [place] [address] PCP - General Internal Medicine 12/03/17 Additional Source Comments The information contained in this document represents components of the legal health record. It is not the complete legal health record.[facility]
--- OUTSIDE RECORDS SUMMARY | 2025-04-10 06:57 | XMS_ITS | Patient Health Record ---
Author Organization [employer] [facility] Address [address] [facility] [address] [place] [address] Care Team Providers Care Building Maintenance Technician Name Role Phone KATHRYN DURAND M.D Primary Care Provider Radha Dominguez Unavailable [phone] Allergies Allergen (clinical drug ingredient) Drug/Non Drug [...] Status W/U Status Risk Notes Problem Menopause (902751067) Menopausal and female climacteric states (N95.1) Active confirmed Problem Lobular carcinoma in situ of right breast (413605065533953) 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 Problem Perimenopausal disorder (196717151) Other specified menopausal and perimenopausal disorders (N95.8) Active confirmed Problem History of carcinoma in situ of breast (7151181149908860 8) Personal history of in-situ neoplasm of [...] Provider Name:Radha giron, 07/29/2025 02:40:00 PM, [address], [address], [place], [address], Insurance Providers Payer Name Payer Address Payer Phone Subscriber Number Group Number Insured Name Patient Relationship to Insured Coverage Start Date Coverage End Date [facility] [address] [place] [address] [id number] MARY GILBERT Self - patient is the insured Medical (General) History Medical History History ICD Code Lobular carcinoma in situ of right breas t D05.01 Menopausal and female climacteric states N95.1 Inconclusive mammogram R92.2 Personal history of in-situ neoplasm of breast Z86.000 Other specified menopausal and perimenop ausal disorders N95.8 Mammographic heterogeneous density, bila teral breasts R92.333 Surgical History Surgery Date(Month/Year) Appendectomy Tonsillectomy [place] [facility] R breast bx (LCIS) 2014 Hospitalization History Reason Date(Month/Year) See Surgical Hx 2 Vaginal Deliveries
--- OUTSIDE RECORDS SUMMARY | 2025-04-10 06:57 | XMS_ITS | Encounter Summary ---
Author Organization [employer] Address [address] [facility] 7t [place] [address] Care Team Providers Care Toys And Games Hand Finisher Name Role Phone Unavailable Primary Care Provider Unavailabl e Encounter Details Date Type Department Care Team (Latest Contact Info) Description 02/28/2019 Abstract [facility] CONVERSIONS Dental, Provider, DDS Social History [...]
--- OUTSIDE RECORDS SUMMARY | 2025-04-10 06:57 | XMS_ITS | Clinical Summary ---
Author Organization [employer] Address [address] [place] [address] 7t [place] [address] Care Team Providers Care Garment Examiner Name Role Phone Unavailable Primary Care Provider Unavailabl e Allergies Active Allergy Reactions Criticality Noted Date Comments Epinephrine Unknown 07/17/2013 Lidocaine 07/17/2013 Nickel 07/17/2014 Sulfa Antibiotics Rash Low 09/22/2022 Medications doxycycline (Vibramycin) 100 MG capsule daily. Active Active Problems No known active problems Encounters Date Type Department Care Team Description 01/09/2025 Telephone [facility] AD[facility] [address] [place] [address] Hailee Turk DDS Follow-up (Patient had a recovery complaint however the issue was resolved for patient was already on the schedule for their six month recall which was schedule back in June./) from Last 3 Months Social History Tobacco [...] ADULT Routine 12/31/2024 8 :00 AM EDT BITEWINGS - 4 RADIOGRAPHIC IMAGES Routine 12/27/2023 3:00 PM EDT INTRAORAL - COMPLETE SERIES OF RADIOGRAPHIC IMAGES Routine 01/05/2023 9:00 AM EDT PERIODIC ORAL EVALUATION - ESTABLISHED PATIENT Routine 01/05/2023 9:00 AM EDT from Last 3 Months or Most Recently Relevant to Health Maintenance Insurance DENTAL - [facility] [place] [id number]
--- OUTSIDE RECORDS SUMMARY | 2025-04-10 06:57 | XMS_ITS | Clinical Summary ---
Author Organization [facility] Address [address] [place] [address] Care Team Providers Care Clay Puddler Name Role Phone Pcp, No Primary Care [...] series) 02/25/2044 Insurance C[employer] HMO Care Teams Clay Puddler Relationship Specialty Start Date End Date Pcp, No PCP - General General Medicine 08/27/23
--- OUTSIDE RECORDS SUMMARY | 2025-04-10 06:58 | XMS_ITS | Encounter Summary ---
Author Organization [facility] Address [address] [place] [address] Phone Care Team Providers Care Registered Nurse Ambulatory Name Role Phone Amy Awan MD Primary Care Provider Reason for Referral * Physical Therapy (Routine) - Closed Specialty Diagnoses / Procedures Referred By Contac t Referred To Contact Physical Therapy Diagnoses Encounter for rehabilitation System, Provider Not In, PhD [address] [place] [address] Phone: tel: Referral ID Status Reason Start Date Expiration Date Visits Re quested Visits Authorized [id number] Closed 12/06/2017 12/06/2018 1 1 Encounter Details Date Type Department Care Team (Latest Contact Info) Description 12/06/2017 Transcribe Orders [facility] Rehabilitation Services [address] [place] [address] Amy Awan MD [address] [place] [address] [place] [address] Encounter for rehabilitation (Primary Dx) Social History [...] Diagnoses Orde r Schedule Ambulatory referral to [facility] Physical Therapy Outpatient Referral Routine Encounter for rehabilitation Ordered: 12/06/2017 documented as of this encounter Visit Diagnoses Diagnosis Encounter for rehabilitation- Primary documented in this encounter Additional Health Concerns Infection Onset Date Last Indicated Resolved Time CoV-Risk 05/29/2023 05/29/2023 06/09/2023 1:22 AM EST documented as of this encounter Care Teams Registered Nurse Ambulatory Relationship Specialty Start Date End Date Amy Awan MD [facility] [place] [address] PCP - General Internal Medicine 12/03/17 documented as of this encounter Additional Source Comments The information contained in this document represents components of the legal health record. It is not the complete legal health record.[facility]
--- OUTSIDE RECORDS SUMMARY | 2025-04-10 06:58 | XMS_ITS | Encounter Summary ---
Author Organization [facility] Address [address] [place] [address] Phone Care Team Providers Care Medical Office Manager Name Role Phone Aym Awan MD Primary Care Provider Reason for Referral * Physical Therapy (Routine) - Closed Specialty Diagnoses / Procedures Referred By Contac t Referred To Contact Physical Therapy Diagnoses Encounter for rehabilitation System, Provider Not In, PhD [id number] [place] [address] Phone: tel: Referral ID Status Reason Start Date Expiration Date Visits Re quested Visits Authorized [id number] Closed 12/26/2017 12/25/2018 30 30 Encounter Details Date Type Department Care Team (Latest Contact Info) Description 12/05/2017 Transcribe Orders [facility] Rehabilitation Services [address] [place] [address] Branden Solis PA [address] [facility] [facility] [place] [address] Encounter for rehabilitation (Primary Dx) Social History [...] Diagnoses Orde r Schedule Ambulatory referral to [facility] Physical Therapy Outpatient Referral Routine Encounter for rehabilitation Ordered: 12/05/2017 documented as of this encounter Visit Diagnoses Diagnosis Encounter for rehabilitation- Primary documented in this encounter Additional Health Concerns Infection Onset Date Last Indicated Resolved Time CoV-Risk 05/29/2023 05/29/2023 06/09/2023 1:22 AM EST documented as of this encounter Care Teams Medical Office Manager Relationship Specialty Start Date End Date Amy Awan MD [address] [place] [address] [place] [address] PCP - General Internal Medicine 12/03/17 documented as of this encounter Additional Source Comments The information contained in this document represents components of the legal health record. It is not the complete legal health record.[facility]
[2025-04-10 07:12] LABS: MANUAL DIFF FLAG NO
[2025-04-10 07:40] LABS: Hematocrit 39.7 % (37.0-47.0); Hemoglobin 13.3 g/dl (12.0-16.0); Imm Gran Abs Auto 0.01 X10*3/uL (0.00-0.03); Imm Gran Pct Auto 0.2 % (0.0-0.4); Lymphocytes Absolute Auto 1.9 X10*3/uL (1.2-4.9); Mean Corpuscular HGB Conc 33.5 g/dl (31.0-35.0); Mean Corpuscular Hemoglobin 31.4 pg (27.0-33.0); Mean Corpuscular Volume 93.9 fL (80.0-98.0); NRBC Abs Auto 0.000 X10*3/uL (0.0-0.012); NRBC Pct Auto 0.0 /100WBC (0.0-0.2); Platelet Count 241 X10*3/uL (160-400); Red Blood Count 4.23 X10*6/uL (4.20-5.50); White Blood Count 4.3 X10*3/uL (4.8-10.8)
[2025-04-10 08:39] LABS: Alanine Aminotransferase 27 U/L (0-31); Albumin Level 4.6 g/dL (3.5-5.0); Alkaline Phosphatase 66 U/L (39-117); Anion Gap 13 (12-20); Aspartate Amino Transferase 26 U/L (5-31); Blood Urea Nitrogen 17 mg/dL (9-16); Calcium 9.6 mg/dL (8.4-10.2); Carbon Dioxide 25 mmol/L (22-29); Chloride 109 mmol/L (96-108); Cholesterol 204 mg/dL (<200); Estimated Glomerular Filt Rate > 60; HDL Cholesterol 78 mg/dL (>40); Potassium 5.1 mmol/L (3.3-5.1); Sodium 142 mmol/L (135-145); Total Protein 7.1 g/dL (6.5-8.0); Triglycerides 56 mg/dL (<150)
[2025-04-14 22:52] LABS: Class Almond 0; Class Brazil Nut 0; Class Cashew 0; Class Codfish 0; Class Cow's Milk 0; Class Egg white 0; Class Hazelnut 0; Class Macadamia Nut 0; Class Peanut 0; Class Salmon 0; Class Scallop 0; Class Sesame Seed 0; Class Shrimp 0; Class Soybean 0; Class Tuna 0; Class Walnut 0; Class Wheat 0; F345-IgE Macadmia Nut <0.10 kU/L
== END 2025-04-10 06:55 | disposition home or self-care (01) ==
LOC: HO.LAB 06:54
PROVIDERS: Nurse Practitioner Family; PCP Nurse Practitioner Family; Visit Provider Nurse Practitioner Family
DX: Z01.84 Encounter for antibody response examination (principal); K59.00 Constipation, unspecified; E55.9 Vitamin D deficiency, unspecified
CPT/HCPCS: 36415; 80053; 80061; 82306; 84443; 85025; 86003; 86364

== ENCOUNTER 2025-04-13 07:20 | Outpatient (REF) | payer OTHER, SELFPAY ==
--- OUTSIDE RECORDS SUMMARY | 2023-12-28 10:00 | XMS_ITS ---
Author Organization Faheem Palomo III, MD Address [address] [place] [address] Care Team Providers Care Accounts Payable Analyst Name Role Phone KATHRYN DURAND NP Primary Care Provider Unavail able Dr. Faheem Palomo III Unavailable DEBBIE LEWIS, FRANCINE Salcido Unavailable Allergies Allergen (clinical drug ingredient) Drug/Non Drug Allergy documented on EMR Reaction Allergy Type Onset Date Status sulfacetamide Sulfacetamide rash Drug Allergy Active EPINEPHrine Unknown Drug Allergy Activ e REASON FOR VISIT History of breast cancer Medications Medication SIG (Take, Route, Frequency, Duration) Notes Start Date End Date Status Doxycycline Hyclate 100 MG 1 capsule Ora lly Once a day Active Vitamin D 2000 UNIT 1 capsule Orally Onc e a day Active Social History Tobacco Use: Social History Observation Description Date Details (start date - stop date) Never Smoker NA - NA Tobacco Use/Smoking Question Answer Notes Patient is a nonsmoker Additional Findings: Tobacco Non-User Aggressive non-smoker Vital Signs Temperature 98.8 degrees Fahrenheit 12/28/19 24 Blood pressure systolic 128 mm Hg 12/28/19 24 Blood pressure diastolic 76 mm Hg 024 Heart Rate 77 /min 12/28/2023 Height 66 in 12/28/2023 Weight 151 lbs 12/28/2023 BMI 24.37 kg/m2 12/28/2023 Encounters Encounter Location Date Provider Diagnosis Faheem Palomo III, MD [address] [place] [address] [place] [address] 12/28/2023 Faheem Palomo Breast lobular neoplasia, right D05.01 ; Family history of malignant neoplasm, unspecified Z80.9 and Vitamin D deficiency, unspecified E55.9 Assessments Encounter Date Diagnosis (ICD Code) Assessment Notes Treatment Notes Treatment Clinical Notes 12/28/2023 Breast lobular neoplasia, right (ICD-10 - D05.01) The breast exam is normal today. Her imaging has been normal. She is due for an MRI. There is no sign of neoplasm at this time. 12/28/2023 Family history of malignant neoplasm, unspecified (ICD-10 - Z80.9) Her mother has a history of bladder cancer. The patient's urine has been unremarkable. 12/28/2023 Vitamin D deficiency, unspecified (ICD-10 - E55.9) Her vitamin D level is 48. No change in her regimen was needed. Plan Of Treatment Medication Medication Name Sig Start Date Stop Date Notes Doxycycline Hyclate 100 MG 1 capsule Orally Once a day Vitamin D 2000 UNIT 1 capsule Orally Once a day Next Appt Details Follow Up: 6 Months, Reason: ov Provider Name:Faheem Palomo , 08/07/2025 02:30:00 PM, [address] [place] [address], [address], Progress Notes * Nilda HUITRON MDOB :1970 (53 yo F)Acc No.[id number]:12/28/2023 Progress Notes Patient: Nilda Dominguez Provider: Magdaleno Palomo MD :1970 A ge:53 Y S ex:Female Date:12/28/2023 Address:[address] [place], [place] [id number] Pcp:KATHRYN DURAND NP Subjective: * Chief Complaints: * H istory of breast cancer * HPI: C OVID-19 Screening: She returns for ongoing surveillance every 6 months for history of breast cancer. She is up-to-date with the MRI of the breast on the mammogram. She has contacted breast self-examination with negative results. Her examination today was unremarkable. Surveillance will continue. No change in her regimen was necessary. Questions H ave you experienced fever, chills, cough, sore throat, shortness of breath, difficulty breathing, muscle aches, loss of taste or smell? N o H ave you been exposed to the virus within the last 10 days? N o H ave you travelled internationally in the last 10 days? N o H ave you been exposed to COVID-19 in the past? N o * ROS: G eneral/Constitutional: pain o nly normal aches and pains. C hills d enies.?Fatigue a dmits. F ever d enies. E NT: Decreased hearing d enies. R espiratory: Cough d enies. C ardiovascular: Chest pain with exertion d enies. D yspnea on exertion?denies. S hortness of breath d enies. G astrointestinal: Constipation o ccasional. D ecreased appetite d enies. D iarrhea d enies. H eartburn o ccasional. N ausea d enies. R ectal bleeding d enies. V omiting d enies. H ematology: bruising d enies. p etechiae d enies. S wollen glands n one have been noted. G enitourinary: Frequent urination d enies. M usculoskeletal: Muscle aches d enies. P ainful joints d enies. S ciatica d enies. W eakness d enies. S kin: Itching d enies. R jeremy d enies. S kin lesion(s)?denies. N eurologic: Difficulty speaking d enies. D izziness d enies.?Headache d enies. L ow back pain d enies. P sychiatric: Depressed mood d enies. * Medical History: * Surgical History: A pendix removed 1984tonsils removed biopsy right breast 10/2014negative screening colonoscopy Dr. Garcia 06/2014core biopsy right breast lesion 08/2014excisional biopsy right breast-LCIS 10/2014 * Hospitalization/Major Diagno stic Procedure: D enies Past Hospitalization * Family History: F ather: , colon cancer, pancreatic cancer, diagnosed with Cancer. M other: , Urothelial carcinoma with bilateral hydroureter, aortic valve replacement with porcine valve, hyponatremia, left hydroureter, bilateral cataract extraction, hyperthryrodism, atrial fribrillation, multinodular goiter, diagnosed with HTN, Cancer, Hyperlipidemia. 1 brother(s) . 1 son(s) , 1 daughter(s) - healthy. . Her brother is an insulin-dependent diabetic. Her children are healthy and well. A maternal grandmother had cancer of the pancreas her mother had bladder cancer. Her father had colon and pancreatic cancer. * Social History: T obacco Use: T obacco Use/Smoking P akbar is a n onsmoker A dditional Findings: Tobacco Non-User A ggressive non-smoker S he has been to Danilo for 20 years. They have a son and a daughter who are healthy and well. She is not a Orthodoxy and is not currently . * Medications: T akingVitamin D 2000 UNIT Capsule 1 capsule Orally Once a dayDoxycycline Hyclate 100 MG Capsule 1 capsule Orally Once a dayMedication List reviewed and reconciled with the patientTaking Vitamin D 2000 UNIT Capsule 1 capsule Orally Once a dayTaking Doxycycline Hyclate 100 MG Capsule 1 capsule Orally Once a dayMedication List reviewed and reconciled with the patient * Allergies: E PINEPHrine: AllergySulfacetamide: rash - Allergyno[Allergies Verified] Objective: * Vitals: H t: 66, Wt: 151, BMI:24.37, BP: 128/76, HR: 77, Temp: 98.8, Wt-k.49. * Examination: G eneral Examination: GENERAL APPEARANCE: p leasant, well nourished, well developed, in no acute distress, calm and relaxed , woman. HEAD: a traumatic, normocephalic. EYES: e abner, perrla, anicteric, conjugate. EARS: n ormal. NOSE: s eptum intact. ORAL CAVITY: n ormal, unremarkable. NECK/THYROID: n o jugular venous distention, no carotid bruit, thyroid normal. LYMPH NODES: n o enlarged lymph nodes,spleen normal. SKIN: n o suspicious lesions, anicteric. HEART: n o clicks, gallops, murmurs, or rubs, regular rhythm, S1, S2 normal, no s3, or vascular bruits. LUNGS: c lear to auscultation . BREASTS: n o masses palpable bilaterally , no dimpling , no discharge , no drainage , nontender , symmetrical, All scars healed. ABDOMEN: b owel sounds normal, no ascites, no organomegaly, no mass. RECTAL EXAM: n ot examined. MUSCULOSKELETAL: e xtremities unremarkable, no clubbing, cyanosis or edema. PERIPHERAL PULSES: n ormal. NEUROLOGIC: a lert and oriented, cranial nerves 2-12 grossly intact, deep tendon reflexes 2+ symmetrical, motor strength normal upper and lower extremities, sensory exam intact. PSYCH: a lert, oriented. Assessment: * Assessment: 1. F amily history of malignant neoplasm, unspecified - Z80.9, Her mother has a history of bladder cancer. The patient's urine has been unremarkable. 2 . B reast lobular neoplasia, right - D05.01, The breast exam is normal today. Her imaging has been normal. She is due for an MRI. There is no sign of neoplasm at this time. 3 . V itamin D deficiency, unspecified - E55.9, Her vitamin D level is 48. No change in her regimen was needed. Plan: * Treatment: * Procedure Codes: * Follow Up: 6 Months (Reason: ov) * Images: * Sign off status: Completed true * Provider: Magdaleno Palomo MD Date: 0 12/28/2023 Generated for Anton bhakta/Mary Ellen/Nonaitting on: 1 06/13/2024 07:44 AM EST History and Physical Notes * HPI (History of Present Illness) Category Sub-Category Detail Notes COVID-19 Screening Questions Have you had any new onset fever, chills, cough, congestion, sore throat, shortness of breath, muscle aches?: No Have you been exposed to the virus withi n the last 10 days?: No Have you travelled internationally in last 10 days?: No Have you been exposed to COVID-19 in the past?: No Examination Category Sub-Category Detail Notes General Examination GENERAL APPEARANCE: pleasant , well nourished, well developed, in no acute distress, calm and relaxed , woman HEAD: atraumatic, normocep halic EYES: eomi, perrla, anicte lisa, conjugate EARS: normal NOSE: septum intact NECK/THYROID: no jugular venous di stention, no carotid bruit, thyroid normal HEART: no clicks, gallops, murmurs, or rubs, regular rhythm, S1, S2 normal, no s3, or vascular bruits LUNGS: clear to auscultatio n ABDOMEN: bowel sounds normal, no ascites, no organomegaly, no mass NEUROLOGIC: alert and oriented, cranial nerves 2-12 grossly intact, deep tendon reflexes 2+ symmetrical, motor strength normal upper and lower extremities, sensory exam intact SKIN: no suspicious lesion s, anicteric PERIPHERAL PULSES: normal BREASTS: no masses palpable b ilaterally , no dimpling , no discharge , no drainage , nontender , symmetrical, All scars healed MUSCULOSKELETAL: extremities unremark able, no clubbing, cyanosis or edema LYMPH NODES: no enlarged lymph no lazaro,spleen normal RECTAL EXAM: not examined PSYCH: alert, oriented ORAL CAVITY: normal, unremarkable
--- OUTSIDE RECORDS SUMMARY | 2024-07-04 10:00 | XMS_ITS ---
Author Organization Faheem Palomo III, MD Address [address] [place] [address] Care Team Providers Care Fighting Vehicle Systems Maintainer Name Role Phone KATHRYN DURAND NP Primary Care Provider Unavail able Dr. Faheem Palomo III Unavailable [phone] DEBBIE LEWIS, FRANCINE Unavailable Unavailable Allergies Allergen (clinical drug ingredient) Drug/Non Drug Allergy documented on EMR Reaction Allergy Type Onset Date Status sulfacetamide Sulfacetamide rash Drug Allergy Active EPINEPHrine Unknown Drug Allergy Activ e REASON FOR VISIT History of lobular carcinoma of the right breast, Family history of bladder cancer Medications Medication SIG (Take, Route, Frequency, Duration) Notes Start Date End Date Status Vitamin D 2000 UNIT 1 capsule Orally Onc e a day Active Doxycycline Hyclate 100 MG 1 capsule Ora lly Once a day Active Social History Tobacco Use: Social History Observation Description Date Details (start date - stop date) Never Smoker NA - NA Tobacco Use/Smoking Question Answer Notes Patient is a nonsmoker Additional Findings: Tobacco Non-User Aggressive non-smoker Problems Problem Type SNOMED Code ICD Code Onset Dates Problem Status W/U Status Risk Notes Problem 897246214 Overweight (E66.3) Active confirmed She has gained 5 pounds since her last visit. She has become slightly overweight. We discussed diet and nutrition and a weight loss strategy today. Vital Signs Temperature 98.3 degrees Fahrenheit 07/04/19 25 Blood pressure systolic 127 mm Hg 07/04/19 25 Blood pressure diastolic 63 mm Hg 025 Heart Rate 72 /min 07/04/2024 Height 66 in 07/04/2024 Weight 156 lbs 07/04/2024 BMI 25.18 kg/m2 07/04/2024 Encounters Encounter Location Date Provider Diagnosis Faheem Palomo III, MD [address] [place] [address] [address] [place] [phone] 07/04/2024 Faheem Palomo Breast lobular neoplasia, right D05.01 ; Family history of malignant neoplasm, unspecified Z80.9 ; Vitamin D deficiency, unspecified E55.9 and Overweight E66.3 Assessments Encounter Date Diagnosis (ICD Code) Assessment Notes Treatment Notes Treatment Clinical Notes 07/04/2024 Breast lobular neoplasia, right (ICD-10 - D05.01) The breast exam is normal today. Her imaging has been normal. She is due for an MRI this month which has been scheduled. There is no sign of neoplasm at this time. 07/04/2024 Family history of malignant neoplasm, unspecified (ICD-10 - Z80.9) Her mother has a history of bladder cancer. The patient's urine has been unremarkable. 07/04/2024 Vitamin D deficiency, unspecified (ICD-10 - E55.9) Her vitamin D level is 48. No change in her regimen was needed. 07/04/2024 Overweight (ICD-10 - E66.3) She has gained 5 pounds since her last visit. She has become slightly overweight. We discussed diet and nutrition and a weight loss strategy today. Plan Of Treatment Medication Medication Name Sig Start Date Stop Date Notes Vitamin D 2000 UNIT 1 capsule Orally Once a day Doxycycline Hyclate 100 MG 1 capsule Orally Once a day Next Appt Details Follow Up: 6 Months, In six months, Reason: OV, Routine check-up Provider Name:Faheem Palomo , 08/07/2025 02:30:00 PM, [address] [place] [address] [address], [place], [address], Progress Notes * Nilda HUITRON MDOB :1970 (54 yo F)Acc No.[id number]:07/04/2024 Progress Notes Patient: Darcie RUSS Nilda NIX Darcie Provider: Magdaleno Palomo MD :1970 A ge:54 Y S ex:Female Date:07/04/2024 Address:[address] [place] [address], [place], [id number] Pcp:KATHRYN DURAND NP Subjective: * Chief Complaints: * H istory of lobular carcinoma of the right breastFamily history of bladder cancer * HPI: C OVID-19 Screening: Questions H ave you had any new onset fever, chills, cough, congestion, sore throat, shortness of breath, muscle aches? N o * : The patient, a 54-year-old female, presented with a complaint of Bursitis in her shoulder. She reported that she had been experiencing this issue for some time and had previously sought treatment at an urgent care center. The patient also mentioned that she occasionally experiences palpitations when lying down, but these episodes are brief and infrequent. She reported no issues with her appetite, but expressed a desire to lose 10 lbs. The patient also mentioned that she had been experiencing hot flashes, but these were not as severe as they had been in the past. She reported no issues with her heart, breathing, or sleep. * ROS: G eneral/Constitutional: pain o nly [...] enies. D iarrhea d enies. H eartburn d enies. N ausea d enies. R ectal bleeding d enies. V omiting d enies. H ematology: bruising d enies. p etechiae d enies. S wollen glands n one have been noted. G enitourinary: Frequent urination a t night. M usculoskeletal: Muscle aches d enies. P [...] right breast lesion 08/2014excisional biopsy right breast-LCIS 10/2014No history * Hospitalization/Major Diagno stic Procedure: N o history * Family History: F ather: , colon cancer, pancreatic cancer, diagnosed with Cancer. M other: , Urothelial carcinoma with bilateral hydroureter, aortic valve replacement with porcine valve, hyponatremia, left hydroureter, bilateral cataract extraction, hyperthryrodism, atrial fribrillation, multinodular goiter, diagnosed with Cancer, HTN, Hyperlipidemia. 1 brother(s) . 1 son(s) , 1 daughter(s) - healthy. . Her brother is an insulin-dependent diabetic. Her children are healthy and well. A maternal grandmother had cancer of the pancreas her mother had bladder cancer. Her father had colon and pancreatic cancer. * Social History: T obacco Use: T obacco Use/Smoking P atstephanie is a n onsmoker A dditional Findings: Tobacco Non-User A ggressive non-smoker S he has been to [place] for 20 years. They have a son and a daughter who are healthy and well. She is not a [employer] and is not currently . * Medications: T akingVitamin D 2000 UNIT Capsule 1 capsule Orally Once a day Doxycycline Hyclate 100 MG Capsule 1 capsule Orally Once a day Medication List reviewed and reconciled with the patientTaking Vitamin D 2000 UNIT Capsule 1 capsule Orally Once a day Taking Doxycycline Hyclate 100 MG Capsule 1 capsule Orally Once a day Medication List reviewed and reconciled with the patient * Allergies: E PINEPHrine: AllergySulfacetamide: rash - Allergyno[Allergies Verified] Objective: * Vitals: H t: 66, Wt: 156, BMI:25.18, BP: 127/63, HR: 72, Temp: 98.3, Wt-k.76. * Examination: G eneral Examination: GENERAL APPEARANCE: p leasant, well nourished, well developed, in no acute distress, calm and relaxed, overweight, woman. HEAD: a traumatic, normocephalic. EYES: e [...] auscultation . BREASTS: n o masses palpable bilaterally, no drainage, no discharge, no dimpling, nontender, symmetrical. ABDOMEN: b owel sounds normal, no ascites, no organomegaly, no mass, overweight. RECTAL EXAM: n ot examined. MUSCULOSKELETAL: e xtremities unremarkable, no clubbing, cyanosis or edema. PERIPHERAL PULSES: n ormal. NEUROLOGIC: a lert and oriented, cranial nerves 2-12 grossly intact, deep tendon reflexes 2+ symmetrical, motor strength normal upper and lower extremities, sensory exam intact. PSYCH: a lert, oriented. Assessment: * Assessment: 1. B reast lobular neoplasia, right - D05.01 (Primary) N otes :The breast exam is normal today. Her imaging has been normal. She is due for an MRI this month which has been scheduled. There is no sign of neoplasm at this time. 2 . F amily history of malignant neoplasm, unspecified - Z80.9 ?Notes :Her mother has a history of bladder cancer. The patient's urine has been unremarkable. 3 . V itamin D deficiency, unspecified - E55.9 N otes :Her vitamin D level is 48. No change in her regimen was needed. 4 . O verweight - E66.3 N otes :She has gained 5 pounds since her last visit. She has become slightly overweight. We discussed diet and nutrition and a weight loss strategy today. Plan: * Treatment: * Procedure Codes: * Preventive Medicine: Counseling: C are goal follow-up plan: Counseling for abnormal BMI given Y es Above Normal BMI Follow-up D ietary needs education * Follow Up: 6 Months, In six months (Reason: OV, Routine check-up) * Images: * Sign off status: Completed true * Provider: Magdaleno Palomo MD Date: 0 07/04/2024 Generated for Anton bhakta/Mary Ellen/Behzad on: 06/13/2024 07:43 AM EST History and Physical Notes * HPI (History of Present Illness) Category Sub-Category Detail Notes COVID-19 Screening Questions Have you had any new onset fever, chills, cough, congestion, sore throat, shortness of breath, muscle aches?: No Examination Category Sub-Category Detail Notes General Examination GENERAL APPEARANCE: pleasant , well nourished, well developed, in no acute distress, calm and relaxed, overweight, woman HEAD: atraumatic, normocep halic EYES: eomi, perrla, anicte lisa, conjugate EARS: normal NOSE: septum intact NECK/THYROID: no jugular venous di stention, no carotid bruit, thyroid normal HEART: no clicks, gallops, murmurs, or rubs, regular rhythm, S1, S2 normal, no s3, or vascular bruits LUNGS: clear to auscultatio n ABDOMEN: bowel sounds normal, no ascites, no organomegaly, no mass, overweight NEUROLOGIC: alert and oriented, cranial nerves 2-12 grossly intact, deep tendon reflexes 2+ symmetrical, motor strength normal upper and lower extremities, sensory exam intact SKIN: no suspicious lesion s, anicteric PERIPHERAL PULSES: normal BREASTS: no masses palpable b ilaterally, no drainage, no discharge, no dimpling, nontender, symmetrical MUSCULOSKELETAL: extremities unremark able, no clubbing, cyanosis or edema LYMPH NODES: no enlarged lymph no lazaro,spleen normal RECTAL EXAM: not examined PSYCH: alert, oriented ORAL CAVITY: normal, unremarkable
--- OUTSIDE RECORDS SUMMARY | 2025-01-02 12:30 | XMS_ITS ---
Author Organization Faheem Palomo III, MD Address [address] [place] [address] [address] [facility] [facility] [place] [address] Care Team Providers Care Equine Intern Name Role Phone KIZZY BELL, KATHRYN Primary Care Provider Unavail able Dr. Faheem Palomo III Unavailable [phone] DEBBIE LEWIS, FRANCINE Salcido Unavailable REASON FOR VISIT Follow up Encounters Encounter Location Date Provider Diagnosis Faheem Palomo III, MD [address] [place] [address] [place] [address] 01/02/2025 Faheem Palomo Plan Of Treatment Next Appt Details Provider Name:Faheem Palomo , 08/07/2025 02:30:00 PM, [address] [place] [address] [place], [address], Progress Notes * Nilda HUITRON MDOB :1970 (55 yo F)Acc No.[id number]:01/02/2025 Progress Notes Patient: Nilda RODRÍGUEZ Provider: Magdaleno Palomo MD :1970 A ge:54 Y S ex:Female Date:01/02/2025 Address:[address] [place] [address] [facility] [id number] Pcp:KATHRYN DURAND NP Subjective: * Chief Complaints: [...] 01/02/2025 Generated for Anton bhakta/Mary Ellen/Behzad on: 06/13/2024 07:42 AM EST
--- OUTSIDE RECORDS SUMMARY | 2025-02-06 10:45 | XMS_ITS ---
Author Organization Faheem Palomo III, MD Address [address] [place] [address] Care Team Providers Care Manager Managing Name Role Phone KIZZY BELL, KATHRYN Primary [...] Problem Status W/U Status Risk Notes Problem [id number] Lobular carcinoma in situ (LCIS) of right [...] Date Provider Diagnosis Faheem Palomo III, MD [address] [place] [address] [address] [place] [phone] 02/06/2025 Faheem Kaplanrne Vitamin D deficiency , [...] Provider Name:Faheem Palomo , 08/07/2025 02:30:00 PM, [address] [place] [address] [address], [place], [phone], Progress Notes * Nilda HUITRON MDOB :1970 (54 yo F)Acc No.[id number]:02/06/2025 Progress Notes Patient: Darcie Nilda DAMON M Provider: Magdaleno Palomo MD :1970 A ge:54 Y S ex:Female Date:02/06/2025 Address:[address] [place] [address] GARY MCNEAL [id number] Pcp:KATHRYN DURAND NP Subjective: * Chief Complaints: [...] biopsy right breast 10/2014negative screening colonoscopy Dr. Gracia 06/2014core biopsy right breast lesion 08/2014excisional biopsy [...] healthy and well. She is not a Christianity and is not currently . * Medications: [...] for Anton bhakta/Mary Ellen/Nonaitting on: 1 06/13/2024 07:43 AM EST History and Physical [...] atraumatic, normocep halic EYES: eomi, perrla, anicte ilsa, conjugate EARS: normal NOSE: septum intact NECK/THYROID: [...]
--- OUTSIDE RECORDS SUMMARY | 2025-03-18 10:00 | XMS_ITS ---
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 :1970 A ge:55 Y S ex:Female Date:03/18/2025 Address:[address] [place], [place] [phone] Pcp:KATHRYN DURAND M.D Subjective: * Chief Complaints: * 1 . 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 * Medical History: Objective: * Vitals: Assessment: Plan: * Treatment: * Images: Billing Information: * Visit Code: * Procedure Codes: * Electronic signature of Oscar Anderson MD on 04/13/2025 at 07:43 AM EST Sign off status: Pending * Appointment Provider: Sigifredo Anderson M.D. Date: Generated for Anton bhakta/Mary Ellen/Behzad on: 06/13/2024 07:43 AM EST
--- OUTSIDE RECORDS SUMMARY | 2025-04-13 07:41 | XMS_ITS | Encounter Summary ---
Author Organization [employer] Address [address] [facility] 7t [place] [address] Care Team Providers Care Americanization Teacher Name Role Phone Unavailable Primary Care Provider Unavailabl e Encounter Details Date Type Department Care Team (Latest Contact Info) Description 02/28/2019 Abstract [facility] CONVERSIONS Dental, Provider, DDS Social History Tobacco [...]
--- OUTSIDE RECORDS SUMMARY | 2025-04-13 07:41 | XMS_ITS | Encounter Summary ---
Author Organization [employer] Address [address] [facility] 7t [place] [address] Care Team Providers Care Aquaculture Program Director Name Role Phone Unavailable Primary Care Provider Unavailabl e Encounter Details Date Type Department Care Team (Latest Contact Info) Description 02/08/2021 Abstract [facility] CONVERSIONS Dental, Provider, DDS Social History [...]
--- OUTSIDE RECORDS SUMMARY | 2025-04-13 07:41 | XMS_ITS | Patient Health Record ---
Author Organization Faheem Palomo III, MD Address [address] [address] Care Team Providers Care Teenage Babysitter Name Role Phone KATHRYN BLOOD NP Primary Care Provider Unavail able Dr. Faheem Palomo III Unavailable FRANCINE LEWIS MD Unavailable Unavailable Allergies Allergen (clinical drug ingredient) Drug/Non Drug Allergy documented on EMR Reaction Allergy Type Onset Date Status sulfacetamide Sulfacetamide rash Drug Allergy Active EPINEPHrine Unknown Drug Allergy Activ e Results Component Value Reference Range Notes MR breast BI wo/w con Reviewed date:08/02/2024 05:00:33 AM Interpretation: Performing Lab: Notes/Report: [address] [address] Magnetic Resonance Report Signed Patient: Nilda Huitron MR#: [id number] : 1970 Acct:[id number] Age/Sex: 54 / F ADM Date: 07/28/24 Loc: HO.MRI Attending Dr: Kathryn Odell MD Ordering Physician: Kathryn Odell MD Date of Service: 07/28/24 Procedure(s): MR breast BI wo/w con Accession Number(s): [id number] cc: Faheem Palomo MD; Kathryn Blood [facility]-; Kathryn Odell MD EXAMINATION: MR BREAST [...] 07/31/24 1141 DD/ 1555 TD/TT: 07/28/24 1630 Venipuncturist: [place] [id number] Magnetic Resonance Report Signed Patient: Nilda Chávez MR#: [id number] : 1970 Acct:[id number] Age/Sex: 54 / F ADM Date: 07/28/24 Loc: .MRI Attending Dr: Kathryn Odell MD Ordering Physician: Kathryn Odell MD Date of Service: 07/28/24 Procedure(s): hetal ast BI wo/w con Accession Number(s): [id number] cc: Faheem Palomo MD; Kathryn Blood [facility]-; Kathryn Odell MD EXAMINATION: MR BREAST [...] 07/31/24 1141 DD/ 1555 TD/TT: 07/28/24 1630 Venipuncturist: Reason For Referral No Information Medications Medication [...] Problem Status W/U Status Risk Notes Problem 923300599 Overweight (E66.3) Active confirmed She has gained 5 pounds since her last visit. She has become slightly overweight. We discussed diet and nutrition and a weight loss strategy today. Problem Vitamin D deficiency (80370337) Vitamin D deficiency, unspecified (E55.9) Active confirmed She will continue on her vitamin D supplementat ion. Problem Family history of cancer (004949124) Family history of malignant neoplasm, unspecified (Z80.9) Active confirmed Her mother has a history of bladder cancer. The patient's urine has been unremarkable . Problem Allergy to sulfonamides (56412068) Allergy status to sulfonamides status (Z88.2) Active confirmed Problem 185419208 History of appendectomy (Z90.49) Active confirmed Problem 691291579 History of tonsillectomy (Z90.89) Active confirmed Problem 084072238136590 Lobular carcinoma in situ (LCIS) of right [...] Date Provider Diagnosis Faheem Palomo III, MD [address] [place] [address] [place] [address] 07/04/2024 Faheem Palomo Breast lobular neoplasia, right D05.01 ; Family history of malignant neoplasm, unspecified Z80.9 ; Vitamin D deficiency, unspecified E55.9 and Overweight E66.3 Faheem Palomo III, MD [address] [place] [address] [place] [address] 02/06/2025 Faheem Palomo Vitamin D deficiency , [...] Provider Name:Faheem Palomo , 08/07/2025 02:30:00 PM, [address] [place] [address] BOB HURD, [place], [address], Insurance Providers Payer Name Payer Address Payer Phone Subscriber Number Group Number Insured Name Patient Relationship to Insured Coverage Start Date Coverage End Date CASSANDRA Padilla [id number] KIM SPANN [id number] Crystal Dinah Nilda Self - patient is [...]
--- OUTSIDE RECORDS SUMMARY | 2025-04-13 07:42 | XMS_ITS | Clinical Summary ---
Author Organization [employer] Address [address] [place] [address] [address] [place] [address] Care Team Providers Care Continuous Improvement Black Belt Name Role Phone Unavailable Primary Care Provider Unavailabl e Allergies Active Allergy Reactions Criticality Noted Date Comments Epinephrine Unknown 07/17/2013 Lidocaine 07/17/2013 Nickel 07/17/2014 Sulfa Antibiotics Rash Low 09/22/2022 Medications doxycycline (Vibramycin) 100 MG capsule daily. Active Active Problems No known active problems Social History Tobacco Use Types Packs/Day Years [...] Relevant to Health Maintenance Insurance DENTAL - [facility] [place] [id number]
--- OUTSIDE RECORDS SUMMARY | 2025-04-13 07:42 | XMS_ITS | Clinical Summary ---
Author Organization [facility] Address [address] [place] [address] Care Team Providers Care Soakers Supervisor Name Role Phone Pcp, No Primary Care [...] series) 02/25/2044 Insurance [employer] HMO Care Teams Soakers Supervisor Relationship Specialty Start Date End Date Pcp, No PCP - General General Medicine 08/27/23
--- OUTSIDE RECORDS SUMMARY | 2025-04-13 07:42 | XMS_ITS | Patient Health Record ---
Author Organization [employer] [facility] Address [address] [place] [address] Care Team Providers Care Calendering Machine Operator Name Role Phone KATHRYN DURAND M.D Primary Care Provider Radha Dominguez Unavailable [phone] Allergies Allergen (clinical drug ingredient) Drug/Non Drug [...] Status W/U Status Risk Notes Problem Menopause (127660742) Menopausal and female climacteric states (N95.1) Active confirmed Problem Lobular carcinoma in situ of right breast (360347463608129) 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 Problem Perimenopausal disorder (076585047) Other specified menopausal and perimenopausal disorders (N95.8) Active confirmed Problem History of carcinoma in situ of breast (6945214815098079 8) Personal history of in-situ neoplasm of [...] Provider Name:Radha giron, 07/29/2025 02:40:00 PM, [address], [address], [place], [address], Insurance Providers Payer Name Payer Address Payer Phone Subscriber Number Group Number Insured Name Patient Relationship to Insured Coverage Start Date Coverage End Date [facility] [address] [place] [address] [id number] MARY GILBERT Self - patient is the insured Medical (General) History Medical History History ICD Code Lobular carcinoma in situ of right breas t D05.01 Menopausal and female climacteric states N95.1 Inconclusive mammogram R92.2 Personal history of in-situ neoplasm of breast Z86.000 Other specified menopausal and perimenop ausal disorders N95.8 Mammographic heterogeneous density, bila teral breasts R92.333 Surgical History Surgery Date(Month/Year) Appendectomy Tonsillectomy [place] [facility] R breast bx (LCIS) 2014 Hospitalization History Reason Date(Month/Year) See Surgical Hx 2 Vaginal Deliveries
--- OUTSIDE RECORDS SUMMARY | 2025-04-13 07:42 | XMS_ITS | Clinical Summary ---
Author Organization [facility] Address [address] [place] [address] Phone Care Team Providers Care Fly Worker Name Role Phone Amy Awan MD Primary [...] PPO CIGNA PPO CIGNA PPO Care Teams Fly Worker Relationship Specialty Start Date End Date mAy Awan MD [facility] [place] [address] PCP - General Internal Medicine 12/03/17 Additional Source Comments The information contained in this document represents components of the legal health record. It is not the complete legal health record.[facility]
[2025-04-13 07:43] LABS: Appearance Urine Clear; Glucose Urine UA Negative (Negative); PH 5.5 (5.0-9.0); Specific Gravity - Urine 1.015 (1.005-1.025); UMIC TRIGGER UACC YES
--- OUTSIDE RECORDS SUMMARY | 2025-04-13 07:43 | XMS_ITS | Encounter Summary ---
Author Organization [facility] Address [address] [place] [address] Phone Care Team Providers Care Background Investigator Name Role Phone Amy Awan MD Primary Care Provider Reason for Referral * Physical Therapy (Elective) - Closed Specialty Diagnoses / Procedures Referred By Contac t Referred To Contact Physical Therapy Diagnoses Encounter for rehabilitation Low back pain M54.5 Procedures Evaluate & Treat Marc Blood NP Phone: tel: fax: [address] [address] Phone: tel: Referral ID Status Reason Start Date Expiration Date Visits Re quested Visits Authorized [id number] Closed 12/29/2020 05/27/2021 15 15 Encounter Details Date Type Department Care Team (Latest Contact Info) Description 11/16/2020 Transcribe Orders [facility] [address] [place] [address] Marc Blood NP [facility] [facility] [place] [address] Encounter for rehabilitation (Primary Dx) Social History [...] Diagnoses Orde r Schedule Ambulatory referral to [facility] Physical Therapy Outpatient Referral Routine Encounter for rehabilitation Ordered: 11/16/2020 documented as of this encounter Visit Diagnoses Diagnosis Encounter for rehabilitation- Primary documented in this encounter Additional Health Concerns Infection Onset Date Last Indicated Resolved Time CoV-Risk 05/29/2023 05/29/2023 06/09/2023 1:22 AM EST documented as of this encounter Care Teams Background Investigator Relationship Specialty Start Date End Date Amy Awan MD [address] [facility] [place] [address] PCP - General Internal Medicine 12/03/17 documented as of this encounter Additional Source Comments The information contained in this document represents components of the legal health record. It is not the complete legal health record.[facility]
--- OUTSIDE RECORDS SUMMARY | 2025-04-13 07:43 | XMS_ITS | Encounter Summary ---
Author Organization [facility] Address [address] [place] [address] Phone Care Team Providers Care Internet Assessor Name Role Phone Amy Awan MD Primary Care Provider Reason for Referral * Physical Therapy (Routine) - Closed Specialty Diagnoses / Procedures Referred By Contac t Referred To Contact Physical Therapy Diagnoses Encounter for rehabilitation System, Provider Not In, PhD [id number] [place] [address] Phone: tel: Referral ID Status Reason Start Date Expiration Date Visits Re quested Visits Authorized [id number] Closed 12/26/2017 12/25/2018 30 30 Encounter Details Date Type Department Care Team (Latest Contact Info) Description 12/05/2017 Transcribe Orders [facility] [address] [place] [address] Bradnen Solis PA [address] [facility] [place] [address] Encounter for rehabilitation (Primary Dx) Social History [...] Diagnoses Orde r Schedule Ambulatory referral to [facility] Physical Therapy Outpatient Referral Routine Encounter for rehabilitation Ordered: 12/05/2017 documented as of this encounter Visit Diagnoses Diagnosis Encounter for rehabilitation- Primary documented in this encounter Additional Health Concerns Infection Onset Date Last Indicated Resolved Time CoV-Risk 05/29/2023 05/29/2023 06/09/2023 1:22 AM EST documented as of this encounter Care Teams Internet Assessor Relationship Specialty Start Date End Date Amy Awan MD [address] [place] [address] [place] [address] PCP - General Internal Medicine 12/03/17 documented as of this encounter Additional Source Comments The information contained in this document represents components of the legal health record. It is not the complete legal health record.[facility]
--- OUTSIDE RECORDS SUMMARY | 2025-04-13 07:43 | XMS_ITS | Encounter Summary ---
Author Organization [facility] Address [address] [place] [address] Phone Care Team Providers Care Loss Control Technician Name Role Phone Amy Awan MD Primary Care Provider Reason for Referral * Physical Therapy (Routine) - Closed Specialty Diagnoses / Procedures Referred By Contac t Referred To Contact Physical Therapy Diagnoses Encounter for rehabilitation System, Provider Not In, PhD [address] [place] [address] Phone: tel: Referral ID Status Reason Start Date Expiration Date Visits Re quested Visits Authorized [id number] Closed 12/06/2017 12/06/2018 1 1 Encounter Details Date Type Department Care Team (Latest Contact Info) Description 12/06/2017 Transcribe Orders [facility] [address] [place] [address] Amy Awan MD [address] [place] [address] [place] [address] Encounter for rehabilitation (Primary Dx) Social History [...] Diagnoses Orde r Schedule Ambulatory referral to [facility] Physical Therapy Outpatient Referral Routine Encounter for rehabilitation Ordered: 12/06/2017 documented as of this encounter Visit Diagnoses Diagnosis Encounter for rehabilitation- Primary documented in this encounter Additional Health Concerns Infection Onset Date Last Indicated Resolved Time CoV-Risk 05/29/2023 05/29/2023 06/09/2023 1:22 AM EST documented as of this encounter Care Teams Loss Control Technician Relationship Specialty Start Date End Date Amy Awan MD [facility] [place] [address] PCP - General Internal Medicine 12/03/17 documented as of this encounter Additional Source Comments The information contained in this document represents components of the legal health record. It is not the complete legal health record.[facility]
[2025-04-13 07:48] LABS: UACC Culture Trigger YES
== END 2025-04-13 07:21 | disposition home or self-care (01) ==
LOC: HO.LNP 07:20
PROVIDERS: Visit Provider Nurse Practitioner Family
DX: Z00.00 Encounter for general adult medical examination without abnormal findings (principal)
CPT/HCPCS: 81001; 87086

== ENCOUNTER 2025-04-15 09:04 | Outpatient (REF) | payer OTHER, SELFPAY ==
--- NOTE | ~2025-04-15 | XR_ITS ---
EXAMINATION: XR HIP, RIGHT CLINICAL INFORMATION: M25.551 - Pain in right hip COMPARISON: 05/25/2016 TECHNIQUE: Two views of the right hip. FINDINGS: No fracture, dislocation, or suspicious bone lesion. There is normal alignment. Normal femoral head contour without evidence of AVN. Normal acetabular coverage. Joint space is grossly preserved. Minimal osteoarthrosis of the right hip is evident with minimal superolateral acetabular spurring. Mild degenerative arthrosis of the right SI joint noted. There is no soft tissue abnormality. XR/XR hip RT min 2V IMPRESSION: 1. No acute bony or soft tissue abnormalities. 2. Minimal degenerative arthrosis right hip joint. Electronically signed by: Luis Migeul Castañeda MD 04/15/2025 10:22 AM JAIME WILLS
== END 2025-04-15 09:05 | disposition home or self-care (01) ==
LOC: HO.HMGCX 09:04
PROVIDERS: PCP Nurse Practitioner Family; Visit Provider Nurse Practitioner Family
DX: Z00.00 Encounter for general adult medical examination without abnormal findings (principal); M25.551 Pain in right hip; D72.819 Decreased white blood cell count, unspecified; E78.5 Hyperlipidemia, unspecified; E55.9 Vitamin D deficiency, unspecified
CPT/HCPCS: 73502; 96127

== ENCOUNTER 2025-04-15 09:04 | Outpatient (AMB) | payer OTHER, SELFPAY ==
--- OUTSIDE RECORDS SUMMARY | 2023-12-28 10:00 | XMS_ITS ---
Author Organization Faheem Palomo III, MD Address [address] [place] [address] Care Team Providers Care Solutions Executive Security Name Role Phone KATHRYN DURAND NP Primary Care Provider Unavail able Dr. Faheem Palomo III Unavailable [phone] DEBBIE LEWIS, FRANCINE Salcido Unavailable Allergies Allergen [...] Date Provider Diagnosis Faheem Palomo III, MD [address] [place] [address] [place] [address] 12/28/2023 Faheem Palomo Breast lobular neoplasia, right [...] Provider Name:Faheem Palomo , 08/07/2025 02:30:00 PM, [address] [place] [address], [address], Progress Notes * Nilda HUITRON MDOB :1970 (53 yo F)Acc No.[id number]:12/28/2023 Progress Notes Patient: Nilda Dominguez Provider: Magdaleno Palomo MD :1970 A ge:53 Y S ex:Female Date:12/28/2023 Address:[address] [place], [place] [id number] Pcp:KATHRYN DURAND NP Subjective: * Chief Complaints: [...] healthy and well. She is not a Congregation and is not currently . * Medications: [...] 12/28/2023 Generated for Anton bhakta/Mary Ellen/Nonaitting on: 06/15/2024 04:56 PM EST History and Physical Notes * HPI [...]
--- OUTSIDE RECORDS SUMMARY | 2024-07-04 10:00 | XMS_ITS ---
Author Organization Faheem Palomo III, MD Address [address] [place] [address] Care Team Providers Care Criminal Justice Faculty Name Role Phone KATHRYN DURAND NP Primary [...] Problem Status W/U Status Risk Notes Problem [id number] Overweight (E66.3) Active confirmed She has gained [...] Date Provider Diagnosis Faheem Palomo III, MD [address] [place] [address] [address] [place] [phone] 07/04/2024 Faheem Palomo Breast lobular neoplasia, right [...] Provider Name:Faheem Palomo , 08/07/2025 02:30:00 PM, [address] [place] [address] [address], [place], [phone], Progress Notes * Nilda HUITRON MDOB :1970 (54 yo F)Acc No.[id number]:07/04/2024 Progress Notes Patient: Darcie RUSS Nilda NIX Darcie Provider: Magdaleno Palomo MD :1970 A ge:54 Y S ex:Female Date:07/04/2024 Address:[address] [place] [address], [place], [id number] Pcp:KATHRYN DURAND NP Subjective: * Chief Complaints: [...] healthy and well. She is not a [employer] and is not currently . * Medications: [...] Sign off status: Completed true * Provider: Magdaleon Palomo MD Date: 0 07/04/2024 Generated for Anton bhakta/Mary Ellen/Behzad on: 06/15/2024 04:56 PM EST History and [...]
--- OUTSIDE RECORDS SUMMARY | 2025-01-02 12:30 | XMS_ITS ---
Author Organization Faheem Palomo III, MD Address [address] [place] [address] [address] [facility] [facility] [place] [address] Care Team Providers Care Cellular Plastics Cutter Name Role Phone KIZZY BELL, KATHRYN Primary Care Provider Unavail able Dr. Faheem Palomo III Unavailable [phone] DEBBIE LEWIS, FRANCINE Salcido Unavailable REASON FOR VISIT Follow up Encounters Encounter Location Date Provider Diagnosis Faheem Palomo III, MD [address] [place] [address] [place] [address] 01/02/2025 Faheem Palomo Plan Of Treatment Next Appt Details Provider Name:Faheem Palomo , 08/07/2025 02:30:00 PM, [address] [place] [address] [place], [address], Progress Notes * Nilda HUITRON MDOB :1970 (55 yo F)Acc No.[id number]:01/02/2025 Progress Notes Patient: Nilda RODRÍGUEZ Provider: Magdaleno Palomo MD :1970 A ge:54 Y S ex:Female Date:01/02/2025 Address:[address] [place] [address] [facility] [id number] Pcp:KATHRYN DURAND NP Subjective: * Chief Complaints: [...] 01/02/2025 Generated for Anton bhakta/Mary Ellen/Behzad on: 06/15/2024 04:55 PM EST
--- OUTSIDE RECORDS SUMMARY | 2025-02-06 10:45 | XMS_ITS ---
Author Organization Faheem Palomo III, MD Address [address] [place] [address] Care Team Providers Care Relations Coordinator Name Role Phone KIZZY BELL, KATHRYN Primary Care Provider Unavail able Dr. Faheem Palomo III Unavailable [phone] DEBBIE LEWIS, FRANCINE Unavailable Unavailable Allergies Allergen [...] Problem Status W/U Status Risk Notes Problem [id number] Lobular carcinoma in situ (LCIS) of right [...] Date Provider Diagnosis Faheem Palomo III, MD [address] [place] [address] [address] [place] [phone] 02/06/2025 Faheem Kaplanrne Vitamin D deficiency , [...] Provider Name:Faheem Palomo , 08/07/2025 02:30:00 PM, [address] [place] [address] [address], [place], [phone], Progress Notes * Nilda HUITRON MDOB :1970 (54 yo F)Acc No.[id number]:02/06/2025 Progress Notes Patient: Darcie Nilda DAMON M Provider: Magdaleno Palomo MD :1970 A ge:54 Y S ex:Female Date:02/06/2025 Address:[address] [place] [address] GARY MCNEAL [id number] Pcp:KATHRYN DURAND NP Subjective: * Chief Complaints: [...] healthy and well. She is not a Latter-day and is not currently . * Medications: [...] 02/06/2025 Generated for Anton bhakta/Mary Ellen/Nonaitting on: 06/15/2024 [...]
--- OUTSIDE RECORDS SUMMARY | 2025-03-18 10:00 | XMS_ITS ---
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 :1970 A ge:55 Y S ex:Female Date:03/18/2025 Address:[address] [place], [place] [address] Pcp:KATHRYN DURAND M.D Subjective: * Chief Complaints: * 1 . 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 * Medical History: Objective: * Vitals: Assessment: Plan: * Treatment: * Images: Billing Information: * Visit Code: * Procedure Codes: * Electronic signature of Oscar Anderson MD on 04/15/2025 at 04:56 PM EST Sign off status: Pending * Appointment Provider: Sigifredo Anderson M.D. Date: Generated for Anton bhakta/Mary Ellen/Behzad on: 06/15/2024 04:56 PM EST
[2025-04-15 09:18] VITALS: BP 130/80; PULSE 64; RESP 16; TEMP 36.6; O2SAT 97; BMI 24.0
--- NOTE | 2025-04-15 09:18 | A.OFFPC_ITS ---
Vital Signs 04/15/25 09:18 Height 5 ft 7 in Weight 153 lb BMI 24.0 BP 130/80 Blood Pressure Location Lt brachial Position Sitting Respiration 16 Pulse 64 Pulse Source Pulse Oximeter Temp 98 F Temp Source Oral Pulse Oximetry (%) 97 Oxygen Delivery Method Room Air Intake Visit Reasons: Annual PE Party Plan Sales Director Required: No Accompanied by: Self / Same As Patient Allergies epinephrine (EPINEPHRINE) Allergy (Intermediate, Verified 04/15/25 09:18) HEART RACES, palpitations, tachycardia Sulfa (Sulfonamide Antibiotics) (SULFA (SULFONAMIDE ANTIBIOTICS)) Allergy (Intermediate, Verified 04/15/25 09:18) RASH Medication List - Last Reconciled 04/15/25 by GLORIA Little-VERONIQUE cholecalciferol (vitamin D3) 25 mcg PO DAILY metronidazole 0.75% (MetroCream) 1 appl topical DAILY Tobacco use date assessed: 04/15/25 Dental Screening Dental Screen Date: 04/15/25 Did you have a dental visit in the last 12 months?: Yes Did you have a dental problem in the last 6 months where you did not have access to dental care?: No Was dental information given to patient?: Patient has dentist HPI Annual PE HPI Details History of Present Illness The patient is a 55-year-old female presenting for a physical exam. She reports ongoing right hip pain, which has been present since her teenage years. The pain is exacerbated by walking long distances and using stairs, and is located mostly on the lateral aspect of the hip. She experiences some popping in the hip, but this is not associated with pain. The patient has a history of faint leukopenia, which was noted on prior testing and has subsequently normalized. Her mammogram and colon screening are up to date, and she sees a project production engineer regularly. Health Maintenance The patient is up to date with her mammogram and colon screening. She has regular follow-up with her AMMUNITION COMPONENTS INSPECTOR and project production engineer. Social History Review of Systems - Cardiovascular: Denies chest pain. - Respiratory: Denies shortness of breat h. - Gastrointestinal: Denies abdominal liz n, hematochezia, constipation, and diarrhea. - Musculoskeletal: Reports ongoing right hip pain, which is exacerbated by walking great distances and stairs. - Psychiatric: Denies suicidal or homici rafia ideation. Physical Exam General: Cooperative, healthy appearing, comfortable, no acute distress and well developed Orientation: Patient oriented x3 Limitations: Reports ongoing right hip pain, especially with walking great distances and stairs Head: Normal to inspection Ears: Hearing grossly normal bilaterally Nose: Normal external nose present Face and sinus: Normal facial exam Eyes: Appearance normal, both eyes and all related structures Neck: Normal visual inspection and Yes full ROM Respiratory: Normal respiratory effort and able to speak in complete sentences. Clear to auscultation bilaterally Cardiovascular: Regular rate and rhythm. Normal S1 and S2 GI: Normal to inspection. Soft to palpation and nontender Skin: No rashes or lesions noted Neuro: Patient oriented x3 Extremities: neg priyanka's test, neg pain with adduction and abduction of RLE. no hip pain with palpation Results - Labs: A faint leukopenia is noted, whi ch has been documented previously and subsequently normalized. Plan 1. Right Hip Pain The patient reports chronic right hip pain since her teenage years, located laterally and exacerbated by walking and stairs. Physical exam was unremarkable, with negative Priyanka, abduction, and adduction tests. An X-ray will be ordered to further evaluate the hip. 2. Leukopenia A faint leukopenia was noted, which has been a recurring finding that has previously normalized. Labs, including vitamin D, will be repeated in 3 months for monitoring. 3. physical exam Discussion Notes I discussed her ongoing right hip pain and will obtain an x-ray for further evaluation. We also reviewed the faint leukopenia, noting its prior occurrence and normalization. I will repeat labs in 3 months to recheck her vitamin D and other levels to monitor. Patient Instructions - Please get an X-ray of your right hip. - In 3 months, you will need to have lab s drawn again to recheck your vitamin D and other blood levels. - Continue to see your other specialists , including your AMMUNITION COMPONENTS INSPECTOR and project production engineer, on a regular basis. [facility] Medical History (Updated 04/15/25 @ 09:52 by LILIBETH Little) Constipation Surgical History H/O colonoscopy History of tonsillectomy History of right breast biopsy History of appendectomy Family History Father Colon cancer Cancer of pancreas Mother Bladder cancer HTN (hypertension) High cholesterol H/O aortic valve replacement Maternal Grandmother Cancer of pancreas Paternal Grandmother No problems noted. 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 1. Little interest or pleasure in doing things: not at all 2. Feeling down, depressed, or hopeless: not at all 3. Trouble falling or staying asleep, or sleeping too much: not at all 4. Feeling tired or having little energy: not at all 5. Poor appetite or overeating: not at all 6. Feeling bad about yourself - or that you are a failure or have let yourself or your family down: not at all 7. Trouble concentrating on things, such as reading the newspaper or watching television: not at all 8. Moving or speaking so slowly that other people could have noticed. Or the opposite - being so fidgety or restless that you have been moving around a lot more than usual: not at all 9. Thoughts that you would be better off or of hurting yourself in some way: not at all Total score: 0 Source: Developed by Drs. Faheem Crane, Callie Araujo, Jourdan Greene and colleagues, with an educational lizet from [employer]. Thrive Questionnaire Date Thrive assessed: 04/08/25 I am a: Patient What is your living situation today?: I have a steady place to live Within the past 12 months, did the food you bought not last and you didn't have the money to get more?: Never true Within the past 12 months, did you worry whether your food would run out before you got money to buy more?: Never true Do you have trouble paying for medicines?: No Do you have trouble getting transportation to medical appointments?: No Do you have trouble paying your heating and electricity bill?: No Do you have trouble taking care of your child, family member or friend?: No Do you have trouble with day-to-day activities such as bathing, preparing meals, shopping, managing finances, etc.?: No Are you currently unemployed and looking for a job?: No Are you interested in more education?: No Please select the resources that you would like help with: None Currently or been in a relationship where the following occur: No concerns reported THRIVE Score: 0 AUDIT C Alcohol Use Questionnaire (AUDIT-C) 1. How often do you have a drink containing alcohol?: 2-4 times a month 2. How many drinks containing alcohol do you have on a typical day when you are drinking?: 1 or 2 3. How often do you have six or more drinks on one occasion?: Never Total Score: 2 KENRICK-7 AMB Questionnaire KENRICK-7 Date KENRICK - 7 assessed: 09/13/21 Feeling nervous, anxious, or on edge: 0 = Not at all Not being able to stop or control worryin = Not at all Worrying too much about different things: 0 = Not at all Trouble relaxin = Not at all Being so restless that it is hard to sit still: 0 = Not at all Becoming easily annoyed or irritable: 0 = Not at all Feeling afraid as if something awful might happen: 0 = Not at all Total KENRICK-7 score (0-4 normal; 5-9 mild; 10-14 moderate; 15-21 severe): 0 Source: Developed by Drs. Faheem Crane, Callie Araujo, Jourdan Greene and colleagues, with an educational lizet from [employer]. Physical exam (Primary Care) Vital Signs: Last Vital Signs Temp 98 F 04/15/25 09:18 Pulse 64 04/15/25 09:18 Resp 16 04/15/25 09:18 BP 130/80 04/15/25 09:18 Pulse Ox 97 04/15/25 09:18 Oxygen Delivery Method Room Air 04/15/25 09:18 BMI result Body Mass Index 24.0 Tobacco/Smoking Status: Tobacco use Status Tobacco use date assessed 04/15/25 04/15/25 09:22 Patient Tobacco Use Status Never used Tobacco 04/15/25 09:22 e-Cigarette/Vaping Use Never Used 04/15/25 09:22 PHQ-9: PHQ-9 Score PHQ-9: Total score 0 04/15/25 09:22 Thrive Assessment: Date of Thrive Assessment Date Thrive assessed 04/08/25 04/15/25 09:22 Currently or been in a relationship where the following occur: No concerns reported Coding Level of Care Code Est Pt Level 3 (06543) Est Pt Prev Care 40-64y(07805) Diagnoses Right hip pain M25.551 Dyslipidemia E78.5 Vitamin D deficiency E55.9 Physical exam Z00.00 Assessment & Plan Assessment & Plan (1) Right hip pain: Code(s): M25.551 - Pain in right hip Category: Medical (2) Dyslipidemia: Code(s): E78.5 - Hyperlipidemia, unspecified Category: Medical (3) Vitamin D deficiency: Code(s): E55.9 - Vitamin D deficiency, unspecified Category: Medical (4) Physical exam: Code(s): Z00.00 - Encounter for general adult medical examination without abnormal findings Category: Medical Plan . Orders: Orders Complete Blood Count Auto Diff 3 Months E78.5 - Hyperlipidemia, unspecified TSH reflex Free T4 3 Months E78.5 - Hyperlipidemia, unspecified UA CC w/rflx Micro + Cult 3 Months E78.5 - Hyperlipidemia, unspecified Lipid Panel 3 Months E78.5 - Hyperlipidemia, unspecified Vitamin D 25-OH Total 3 Months E55.9 - Vitamin D deficiency, unspecified XR hip RT min 2V Today M25.551 - Pain in right hip Comprehensive [place]. Panel Fast 3 Months E78.5 - Hyperlipidemia, unspecified Medications: New metronidazole 0.75% (MetroCream) 1 appl topical DAILY 45 grams 1RF
--- OUTSIDE RECORDS SUMMARY | 2025-04-15 16:55 | XMS_ITS | Clinical Summary ---
Author Organization [employer] Address [address] [place] [address] Care Team Providers Care Senior Patient Account Representative Name Role Phone Unavailable Primary Care Provider [...] Relevant to Health Maintenance Insurance DENTAL - [facility] [place] [id number]
--- OUTSIDE RECORDS SUMMARY | 2025-04-15 16:55 | XMS_ITS | Patient Health Record ---
Author Organization Faheem Palomo III, MD Address [address] [place] [address] Care Team Providers Care Soda Worker Name Role Phone KATHRYN BLOOD NP Primary [...] date:08/02/2024 05:00:33 AM Interpretation: Performing Lab: Notes/Report: [address] [address] Magnetic Resonance Report Signed Patient: Nilda Huitron MR#: [id number] : 1970 Acct:[id number] Age/Sex: 54 / F ADM Date: 07/28/24 Loc: HO.MRI Attending Dr: Kathryn Odell MD Ordering Physician: Kathryn Odell MD Date of Service: 07/28/24 Procedure(s): MR breast BI wo/w con Accession Number(s): [id number] cc: Faheem Palomo MD; Kathryn Blood [facility]-; Kathryn Odell MD EXAMINATION: MR BREAST WITHOUT [...] 07/31/24 1141 DD/ 1555 TD/TT: 07/28/24 1630 Spraying Machine Operator: [place] [id number] Magnetic Resonance Report Signed Patient: Nilda Chávez MR#: [id number] : 1970 Acct:[id number] Age/Sex: 54 / F ADM Date: 07/28/24 Loc: .MRI Attending Dr: Kathryn Odell MD Ordering Physician: Kathryn Odell MD Date of Service: 07/28/24 Procedure(s): hetal ast BI wo/w con Accession Number(s): [id number] cc: Faheem Palomo MD; Kathryn Blood [facility]-; Kathryn Odell MD EXAMINATION: MR BREAST WITHOUT [...] 07/31/24 1141 DD/ 1555 TD/TT: 07/28/24 1630 Spraying Machine Operator: Reason For Referral No Information Medications Medication [...] Problem Status W/U Status Risk Notes Problem 239841187 Overweight (E66.3) Active confirmed She has gained 5 pounds since her last visit. She has become slightly overweight. We discussed diet and nutrition and a weight loss strategy today. Problem Vitamin D deficiency (69232114) Vitamin D deficiency, unspecified (E55.9) Active confirmed She will continue on her vitamin D supplementat ion. Problem Family history of cancer (535458760) Family history of malignant neoplasm, unspecified (Z80.9) Active confirmed Her mother has a history of bladder cancer. The patient's urine has been unremarkable . Problem Allergy to sulfonamides (62817910) Allergy status to sulfonamides status (Z88.2) Active confirmed Problem 891320953 History of appendectomy (Z90.49) Active confirmed Problem 550837303 History of tonsillectomy (Z90.89) Active confirmed Problem 542431429723704 Lobular carcinoma in situ (LCIS) of right [...] Date Provider Diagnosis Faheem Palomo III, MD [address] [place] [address] [place] [address] 07/04/2024 Faheem Palomo Breast lobular neoplasia, right D05.01 ; Family history of malignant neoplasm, unspecified Z80.9 ; Vitamin D deficiency, unspecified E55.9 and Overweight E66.3 Faheem Palomo III, MD [address] [place] [address] [place] [address] 02/06/2025 Faheem Palomo Vitamin D deficiency , [...] Provider Name:Faheem Palomo , 08/07/2025 02:30:00 PM, [address] [place] [address] BOB HURD, [place], [address], Insurance Providers Payer Name Payer Address Payer Phone Subscriber Number Group Number Insured Name Patient Relationship to Insured Coverage Start Date Coverage End Date CASSANDRA Padilla [id number] KIM SPANN [id number] Crystal Dinah Nilda Self - patient is [...]
--- OUTSIDE RECORDS SUMMARY | 2025-04-15 16:55 | XMS_ITS | Clinical Summary ---
Author Organization [facility] Address [address] [place] [address] Care Team Providers Care Lumber Mover Name Role Phone Pcp, No Primary Care [...] series) 02/25/2044 Insurance [employer] HMO Care Teams Lumber Mover Relationship Specialty Start Date End Date Pcp, No PCP - General General Medicine 08/27/23
--- OUTSIDE RECORDS SUMMARY | 2025-04-15 16:55 | XMS_ITS | Encounter Summary ---
Author Organization [employer] Address [address] [facility] 7[address] [place] [address] Care Team Providers Care Supervisor Forming And Tempering Name Role Phone Unavailable Primary Care Provider Unavailabl e Encounter Details Date Type Department Care Team (Latest Contact Info) Description 02/08/2021 Abstract [facility] CONVERSIONS Dental, Provider, DDS Social [...]
--- OUTSIDE RECORDS SUMMARY | 2025-04-15 16:55 | XMS_ITS | Clinical Summary ---
Author Organization [facility] Address [address] [facility] [address] [place] [address] Phone Care Team Providers Care Director College Name Role Phone Amy Awan MD Primary [...] PPO CIGNA PPO CIGNA PPO Care Teams Director College Relationship Specialty Start Date End Date Amy Awan MD [address] [place] [address] PCP - General Internal Medicine 12/03/17 Additional Source Comments The information contained in this document represents components of the legal health record. It is not the complete legal health record.[facility]
--- OUTSIDE RECORDS SUMMARY | 2025-04-15 16:55 | XMS_ITS | Encounter Summary ---
Author Organization [employer] Address [address] [facility] [address] [place] [address] Care Team Providers Care Property Management Coordinator Name Role Phone Unavailable Primary Care Provider Unavailabl e Encounter Details Date Type Department Care Team (Latest Contact Info) Description 02/28/2019 Abstract [facility] CONVERSIONS Dental, Provider, DDS Social [...]
--- OUTSIDE RECORDS SUMMARY | 2025-04-15 16:56 | XMS_ITS | Encounter Summary ---
Author Organization [facility] Address [address] [place] [address] Phone Care Team Providers Care Oil Scout Name Role Phone Amy Awan MD Primary Care Provider Reason for Referral * Physical Therapy (Routine) - Closed Specialty Diagnoses / Procedures Referred By Contac t Referred To Contact Physical Therapy Diagnoses Encounter for rehabilitation System, Provider Not In, PhD [address] [place] [address] Phone: tel: Referral ID Status Reason Start Date Expiration Date Visits Re quested Visits Authorized [id number] Closed 12/06/2017 12/06/2018 1 1 Encounter Details Date Type Department Care Team (Latest Contact Info) Description 12/06/2017 Transcribe Orders [facility] [address] [place] [address] Amy Awan MD [address] [place] [address] [place] [address] Encounter for rehabilitation (Primary Dx) Social History [...] Diagnoses Orde r Schedule Ambulatory referral to [facility] Physical Therapy Outpatient Referral Routine Encounter for rehabilitation Ordered: 12/06/2017 documented as of this encounter Visit Diagnoses Diagnosis Encounter for rehabilitation- Primary documented in this encounter Additional Health Concerns Infection Onset Date Last Indicated Resolved Time CoV-Risk 05/29/2023 05/29/2023 06/09/2023 1:22 AM EST documented as of this encounter Care Teams Oil Scout Relationship Specialty Start Date End Date Amy Awan MD [facility] [place] [address] PCP - General Internal Medicine 12/03/17 documented as of this encounter Additional Source Comments The information contained in this document represents components of the legal health record. It is not the complete legal health record.[facility]
--- OUTSIDE RECORDS SUMMARY | 2025-04-15 16:56 | XMS_ITS | Encounter Summary ---
Author Organization [facility] Address [address] [place] [address] Phone Care Team Providers Care Movie Shot Cameraman Name Role Phone Amy Awan MD Primary Care Provider Reason for Referral * Physical Therapy (Elective) - Closed Specialty Diagnoses / Procedures Referred By Contac t Referred To Contact Physical Therapy Diagnoses Encounter for rehabilitation Low back pain M54.5 Procedures Evaluate & Treat Marc Blood NP Phone: tel: fax: [address] [address] Phone: tel: Referral ID Status Reason Start Date Expiration Date Visits Re quested Visits Authorized [id number] Closed 12/29/2020 05/27/2021 15 15 Encounter Details Date Type Department Care Team (Latest Contact Info) Description 11/16/2020 Transcribe Orders [facility] Rehabilitation Services [address] [place] [address] Marc Blood NP [facility] [facility] [place] [address] Encounter for rehabilitation (Primary Dx) Social History [...] Diagnoses Orde r Schedule Ambulatory referral to [facility] Physical Therapy Outpatient Referral Routine Encounter for rehabilitation Ordered: 11/16/2020 documented as of this encounter Visit Diagnoses Diagnosis Encounter for rehabilitation- Primary documented in this encounter Additional Health Concerns Infection Onset Date Last Indicated Resolved Time CoV-Risk 05/29/2023 05/29/2023 06/09/2023 1:22 AM EST documented as of this encounter Care Teams Movie Shot Cameraman Relationship Specialty Start Date End Date Amy Awan MD [address] [facility] [place] [address] PCP - General Internal Medicine 12/03/17 documented as of this encounter Additional Source Comments The information contained in this document represents components of the legal health record. It is not the complete legal health record.[facility]
--- OUTSIDE RECORDS SUMMARY | 2025-04-15 16:56 | XMS_ITS | Patient Health Record ---
Author Organization [facility] [facility] Address [address] [facility] [address] [place] [address] Care Team Providers Care Television Announcer Name Role Phone KATHRYN DURAND M.D Primary Care Provider Radha Dominguez Unavailable [phone] Allergies Allergen (clinical drug ingredient) Drug/Non Drug [...] Status W/U Status Risk Notes Problem Menopause (427490396) Menopausal and female climacteric states (N95.1) Active confirmed Problem Lobular carcinoma in situ of right breast (507633432832965) 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 Problem Perimenopausal disorder (539950016) Other specified menopausal and perimenopausal disorders (N95.8) Active confirmed Problem History of carcinoma in situ of breast (7129034496311700 8) Personal history of in-situ neoplasm of [...] Provider Name:Radha giron, 07/29/2025 02:40:00 PM, [address], [place], [address], Insurance Providers Payer Name Payer Address Payer Phone Subscriber Number Group Number Insured Name Patient Relationship to Insured Coverage Start Date Coverage End Date [facility] [address] [place] [address] [id number] MARY GILBERT Self - patient is the insured Medical (General) History Medical History History ICD Code Lobular carcinoma in situ of right breas t D05.01 Menopausal and female climacteric states N95.1 Inconclusive mammogram R92.2 Personal history of in-situ neoplasm of breast Z86.000 Other specified menopausal and perimenop ausal disorders N95.8 Mammographic heterogeneous density, bila teral breasts R92.333 Surgical History Surgery Date(Month/Year) Appendectomy Tonsillectomy [place] Teeth R breast bx (LCIS) 2014 Hospitalization History Reason Date(Month/Year) See Surgical Hx 2 Vaginal Deliveries
--- OUTSIDE RECORDS SUMMARY | 2025-04-15 16:57 | XMS_ITS | Encounter Summary ---
Author Organization [facility] Address [address] [place] [address] Phone Care Team Providers Care Mountain Guide Name Role Phone Amy Awan MD Primary Care Provider Reason for Referral * Physical Therapy (Routine) - Closed Specialty Diagnoses / Procedures Referred By Contac t Referred To Contact Physical Therapy Diagnoses Encounter for rehabilitation System, Provider Not In, PhD [address] [place] [address] Phone: tel: Referral ID Status Reason Start Date Expiration Date Visits Re quested Visits Authorized [id number] Closed 12/26/2017 12/25/2018 30 30 Encounter Details Date Type Department Care Team (Latest Contact Info) Description 12/05/2017 Transcribe Orders Rehabilitation Services [address] [place] [address] Branden Solis PA [address] [facility] [place] [address] Encounter for rehabilitation (Primary Dx) Social History [...] Diagnoses Orde r Schedule Ambulatory referral to [facility] Physical Therapy Outpatient Referral Routine Encounter for rehabilitation Ordered: 12/05/2017 documented as of this encounter Visit Diagnoses Diagnosis Encounter for rehabilitation- Primary documented in this encounter Additional Health Concerns Infection Onset Date Last Indicated Resolved Time CoV-Risk 05/29/2023 05/29/2023 06/09/2023 1:22 AM EST documented as of this encounter Care Teams Mountain Guide Relationship Specialty Start Date End Date Amy Awan MD [address] [place] [address] [place] [address] PCP - General Internal Medicine 12/03/17 documented as of this encounter Additional Source Comments The information contained in this document represents components of the legal health record. It is not the complete legal health record.[facility]
== END 2025-04-15 10:00 | disposition home or self-care (01) ==
LOC: HO.HMCC 09:04
PROVIDERS: PCP Nurse Practitioner Family; Visit Provider Nurse Practitioner Family
DX: Z00.00 Encounter for general adult medical examination without abnormal findings (principal); M25.551 Pain in right hip; E78.5 Hyperlipidemia, unspecified; E55.9 Vitamin D deficiency, unspecified

== ENCOUNTER → 2025-04-15 10:10 | Outpatient (BNV) | payer OTHER, SELFPAY | PROVIDERS: PCP Nurse Practitioner Family; Visit Provider Radiology Diagnostic Radiology | DX: M16.11 Unilateral primary osteoarthritis, right hip (principal) | CPT/HCPCS: 73502 ==